=== PATIENT | male | born 1985 | race Caucasian/White ===

== ENCOUNTER 2017-03-03 16:52 | Emergency (ER) | payer MEDICAID ==
[~2017-03-03 16:52] MED LIST: ASPIR 8181 MG PO; ATIVAN0.5 M1; ATIVAN2 MG PO; BENAZEPRIL HYDR40 M1 PO; ERYOO OU; FOL1 PO; FOLIC ACID1 MG; HCTZ-METOPROLOL1 TA1; KEPPRA500 MG PO; LAC PO; LEXAPRO10 MG PO; PEPL PO; PROPRANOLOL HCL20 MG PO; THI100 PO; VITAMIN B COMPL; ZESTRIL5 MG
[2017-03-03 19:32] LABS: BASOPHIL % 0.4 % (0-2); PLATELET COUNT 194 x10^3mcL (130-400); RED CELL DISTRIBUTION WIDTH 13.8 % (11.5-14.5)
[2017-03-03 19:38] LABS: CALCIUM 8.5 mg/dL (8.5-10.1); CARBON DIOXIDE 31.8 mmol/L (21-32); CHLORIDE SERUM 98 mmol/L (98-107); CREATININE SERUM 0.9 mg/dL (0.7-1.3); GFR1 > 60 mL/min; GLUCOSE SERUM 105 mg/dL (74-106); POTASSIUM SERUM 3.5 mmol/L (3.5-5.1); SODIUM SERUM 141 mmol/L (136-145)
[2017-03-03 19:50] LABS: ALBUMIN 4.3 g/dL (3.4-5.0); ALKALINE PHOSPHATASE 96 U/L (46-116); ALT/SGPT 39 U/L (16-63); AST/SGOT 35 U/L (15-37); BILIRUBIN TOTAL 0.5 mg/dL (0.20-1.00); LIPASE 192 IU/L (73-393); MAGNESIUM 1.6 mg/dL (1.8-2.4)
[2017-03-03 22:07] LABS: AMPHETAMINE QUAL UR NONE DETECTED (NEG <=1000)
[2017-03-03 23:56] VITALS: BP 130/84
== END 2017-03-03 23:56 | disposition home or self-care (01) ==
LOC: ED 16:52
PROVIDERS: Emergency Medicine
DX: R00.2 Palpitations (principal); I97.89 Other postprocedural complications and disorders of the circulatory system, not elsewhere classified; I47.1 Supraventricular tachycardia; E83.42 Hypomagnesemia; F10.10 Alcohol abuse, uncomplicated
CPT/HCPCS: 80307; 83880; G0480; J2060; J2405; J3411; J3475; J3490; J7030

== ENCOUNTER 2017-06-05 17:01 | Emergency (ER) | payer MEDICAID ==
[~2017-06-05] VITALS: Ht 170.2 cm; Wt 87.2 kg
[2017-06-05 17:06] VITALS: BP 154/107
[2017-06-05 18:05] LABS: BASOPHIL % 1.5 % (0-2); PLATELET COUNT 262 x10^3mcL (130-400)
[2017-06-05 18:06] LABS: RED CELL DISTRIBUTION WIDTH 19.3 % (11.5-14.5)
[2017-06-05 18:16] LABS: CALCIUM 8.1 mg/dL (8.5-10.1); CARBON DIOXIDE 29.9 mmol/L (21-32); CHLORIDE SERUM 104 mmol/L (98-107); CREATININE SERUM 0.9 mg/dL (0.7-1.3); GFR1 > 60 mL/min; GLUCOSE SERUM 140 mg/dL (74-106); POTASSIUM SERUM 3.2 mmol/L (3.5-5.1); SODIUM SERUM 144 mmol/L (136-145)
[2017-06-05 18:21] LABS: ALBUMIN 3.8 g/dL (3.4-5.0); ALKALINE PHOSPHATASE 81 U/L (46-116); ALT/SGPT 32 U/L (16-63); AST/SGOT 35 U/L (15-37); BILIRUBIN TOTAL 0.2 mg/dL (0.20-1.00); CHOLESTEROL 192 mg/dL (<200); HDL CHOLESTEROL 113 mg/dL (40-60); PHOSPHOROUS 3.5 mg/dL (2.5-4.9); TOTAL PROTEIN, SERUM 7.7 g/dL (6.4-8.2); URIC ACID 5.3 mg/dL (3.5-7.2)
== END 2017-06-05 19:02 | disposition home or self-care (01) ==
LOC: ED 17:01
PROVIDERS: Emergency Medicine
DX: F10.229 Alcohol dependence with intoxication, unspecified (principal); E86.0 Dehydration
CPT/HCPCS: 83880; G0480; J1885; J2060; J7030; Q0092

== ENCOUNTER 2017-07-06 20:37 | Emergency (ER) | payer MEDICAID ==
[2017-07-06 21:32] VITALS: BP 132/110
== END 2017-07-06 22:10 | disposition left against medical advice (07) ==
LOC: ED 20:37
DX: Z53.21 Procedure and treatment not carried out due to patient leaving prior to being seen by health care provider (principal)

== ENCOUNTER 2017-07-24 13:10 | Emergency (ER) | payer MEDICAID ==
[2017-07-24 16:27] LABS: BASOPHIL % 0.8 % (0-2); PLATELET COUNT 290 x10^3mcL (130-400)
[2017-07-24 16:55] LABS: ALBUMIN 4.3 g/dL (3.4-5.0); ALKALINE PHOSPHATASE 71 U/L (46-116); ALT/SGPT 27 U/L (16-63); AMYLASE 81 U/L (25-115); AST/SGOT 34 U/L (15-37); BILIRUBIN TOTAL 0.49 mg/dL (0.20-1.00); CALCIUM 8.7 mg/dL (8.5-10.1); CARBON DIOXIDE 27.5 mmol/L (21-32); CHLORIDE SERUM 102 mmol/L (98-107); CREATININE SERUM 0.8 mg/dL (0.7-1.3); GFR1 > 60 mL/min; GLUCOSE SERUM 96 mg/dL (74-106); LIPASE 197 IU/L (73-393); MAGNESIUM 1.8 mg/dL (1.8-2.4); POTASSIUM SERUM 3.5 mmol/L (3.5-5.1); SODIUM SERUM 144 mmol/L (136-145)
[2017-07-24 17:01] LABS: CHOLESTEROL 213 mg/dL (<200); HDL CHOLESTEROL 100 mg/dL (40-60); TOTAL PROTEIN, SERUM 8.7 g/dL (6.4-8.2)
[2017-07-24 19:02] VITALS: BP 136/80
== END 2017-07-24 19:02 | disposition home or self-care (01) ==
LOC: ED 13:10
PROVIDERS: Emergency Medicine
DX: K29.20 Alcoholic gastritis without bleeding (principal); F10.229 Alcohol dependence with intoxication, unspecified; I10 Essential (primary) hypertension; F17.210 Nicotine dependence, cigarettes, uncomplicated; I45.6 Pre-excitation syndrome; Z71.6 Tobacco abuse counseling
CPT/HCPCS: 83880; 99406; G0480; J0500; J1885; J3411; J3475; J3490; J7030; Q0092

== ENCOUNTER 2017-08-05 18:58 | Emergency (ER) | payer MEDICAID ==
[2017-08-05 21:24] LABS: PLATELET COUNT 227 x10^3mcL (130-400)
[2017-08-05 21:29] LABS: BASOPHIL % 1.2 % (0-2)
[2017-08-05 21:32] LABS: RED CELL DISTRIBUTION WIDTH 18.6 % (11.5-14.5)
[2017-08-05 21:42] LABS: CHLORIDE SERUM 105 mmol/L (98-107); CREATININE SERUM 0.8 mg/dL (0.7-1.3); GFR1 > 60 mL/min; GLUCOSE SERUM 114 mg/dL (74-106); SODIUM SERUM 144 mmol/L (136-145)
[2017-08-05 21:46] LABS: ALBUMIN 3.8 g/dL (3.4-5.0); ALKALINE PHOSPHATASE 77 U/L (46-116); ALT/SGPT 43 U/L (16-63); AST/SGOT 53 U/L (15-37); BILIRUBIN TOTAL 0.13 mg/dL (0.20-1.00); LIPASE 416 IU/L (73-393)
[2017-08-05 21:49] LABS: AMYLASE 161 U/L (25-115)
[2017-08-05 23:55] VITALS: BP 140/100
== END 2017-08-05 23:00 | disposition home or self-care (01) ==
LOC: ED 18:58
PROVIDERS: Emergency Medicine
DX: S30.1XXA Contusion of abdominal wall, initial encounter (principal); S20.211A Contusion of right front wall of thorax, initial encounter; I10 Essential (primary) hypertension; F41.9 Anxiety disorder, unspecified; F32.9 Major depressive disorder, single episode, unspecified; I45.6 Pre-excitation syndrome; W18.30XA Fall on same level, unspecified, initial encounter; Y93.89 Activity, other specified; Y92.89 Other specified places as the place of occurrence of the external cause; Y99.8 Other external cause status
CPT/HCPCS: 36415; G0480; J7030; Q0092; Q9967

== ENCOUNTER 2017-08-08 06:22 | Emergency (ER) | payer MEDICAID ==
[2017-08-08 07:28] LABS: CARBON DIOXIDE 32.4 mmol/L (21-32); CHLORIDE SERUM 102 mmol/L (98-107); CREATININE SERUM 0.9 mg/dL (0.7-1.3); GFR1 > 60 mL/min; GLUCOSE SERUM 127 mg/dL (74-106); SODIUM SERUM 145 mmol/L (136-145)
[2017-08-08 07:30] LABS: PLATELET COUNT 214 x10^3mcL (130-400)
[2017-08-08 07:33] LABS: ALBUMIN 3.9 g/dL (3.4-5.0); ALKALINE PHOSPHATASE 74 U/L (46-116); ALT/SGPT 42 U/L (16-63); AST/SGOT 49 U/L (15-37); BILIRUBIN TOTAL 0.2 mg/dL (0.20-1.00); TOTAL PROTEIN, SERUM 8.1 g/dL (6.4-8.2)
[2017-08-08 07:36] LABS: BASOPHIL % 1.2 % (0-2)
[2017-08-08 11:04] VITALS: BP 163/97
== END 2017-08-08 11:56 | disposition home or self-care (01) ==
LOC: ED 06:22
PROVIDERS: Emergency Medicine
DX: S39.91XA Unspecified injury of abdomen, initial encounter (principal); I10 Essential (primary) hypertension; F32.9 Major depressive disorder, single episode, unspecified; F41.9 Anxiety disorder, unspecified; I45.6 Pre-excitation syndrome; W01.0XXA Fall on same level from slipping, tripping and stumbling without subsequent striking against object, initial encounter; Y93.89 Activity, other specified; Y92.89 Other specified places as the place of occurrence of the external cause; Y99.8 Other external cause status
CPT/HCPCS: J2060; J7030; Q0162

== ENCOUNTER 2017-09-01 16:08 | Emergency (ER) | payer MEDICAID ==
[2017-09-01 17:23] LABS: BASOPHIL % 0.4 % (0-2); PLATELET COUNT 200 x10^3mcL (130-400)
[2017-09-01 17:24] LABS: RED CELL DISTRIBUTION WIDTH 20.9 % (11.5-14.5)
[2017-09-01 17:28] LABS: rbc morphology (normal/abnorm) ABNORMAL (NORMAL)
[2017-09-01 17:36] LABS: CALCIUM 8.4 mg/dL (8.5-10.1); CARBON DIOXIDE 29.6 mmol/L (21-32); CHLORIDE SERUM 102 mmol/L (98-107); CREATININE SERUM 0.9 mg/dL (0.7-1.3); GFR1 > 60 mL/min; GLUCOSE SERUM 100 mg/dL (74-106); POTASSIUM SERUM 3.7 mmol/L (3.5-5.1); SODIUM SERUM 145 mmol/L (136-145)
[2017-09-01 17:41] LABS: ALBUMIN 4.2 g/dL (3.4-5.0); ALKALINE PHOSPHATASE 77 U/L (46-116); ALT/SGPT 34 U/L (16-63); AST/SGOT 41 U/L (15-37); BILIRUBIN TOTAL 0.43 mg/dL (0.20-1.00); LIPASE 208 IU/L (73-393); MAGNESIUM 1.7 mg/dL (1.8-2.4)
[2017-09-01 17:50] LABS: TOTAL PROTEIN, SERUM 8.6 g/dL (6.4-8.2)
[2017-09-01 19:35] VITALS: BP 150/104
== END 2017-09-01 19:35 | disposition home or self-care (01) ==
LOC: ED 16:08
PROVIDERS: Emergency Medicine
DX: F10.10 Alcohol abuse, uncomplicated (principal); F11.10 Opioid abuse, uncomplicated; K92.0 Hematemesis; R56.9 Unspecified convulsions; I45.6 Pre-excitation syndrome; I10 Essential (primary) hypertension; Z87.19 Personal history of other diseases of the digestive system
CPT/HCPCS: G0480; J2060; J3411; J3475; J3490

== ENCOUNTER 2017-10-24 20:04 | Inpatient (IN) | payer MEDICAID ==
[~2017-10-24] VITALS: Ht 180.3 cm; Wt 88.5 kg
[2017-10-24 21:44] LABS: PLATELET COUNT 335 x10^3mcL (130-400)
[2017-10-24 21:57] LABS: ALBUMIN 3.9 g/dL (3.4-5.0); ALKALINE PHOSPHATASE 71 U/L (46-116); ALT/SGPT 57 U/L (16-63); AST/SGOT 47 U/L (15-37); BILIRUBIN TOTAL 0.42 mg/dL (0.20-1.00); CALCIUM 8.1 mg/dL (8.5-10.1); CARBON DIOXIDE 31.8 mmol/L (21-32); CHLORIDE SERUM 105 mmol/L (98-107); CREATININE SERUM 0.8 mg/dL (0.7-1.3); GFR1 > 60 mL/min; GLUCOSE SERUM 98 mg/dL (74-106); SODIUM SERUM 147 mmol/L (136-145)
[2017-10-24 21:58] LABS: LIPASE 1847 IU/L (73-393)
[2017-10-24 22:02] LABS: RED CELL DISTRIBUTION WIDTH 21.2 % (11.5-14.5)
[2017-10-25] VITALS (8 sets, daily range): BP systolic 107–155; BP diastolic 67–111; Ht 180.3 cm; Wt 88.5 kg
[2017-10-25] MEDS ORDERED: BENAZEPRIL HYDR20 M1
[2017-10-25] MEDS ORDERED: ATIVAN1 MG
[2017-10-25] MEDS ORDERED: PHARMASSURE FO0.4 MG
[2017-10-25] MEDS ORDERED: THIAMINE HCL
[2017-10-25 00:36] LABS: MAGNESIUM 1.9 mg/dL (1.8-2.4); PHOSPHOROUS 2.6 mg/dL (2.5-4.9)
[2017-10-25 00:44] LABS: FREE T4 0.74 ng/dL (0.76-1.46); FREE THYROXINE INDEX 2.2 ug/dL (1.4-4.5); T4(THYROXINE) 6.4 ug/dL (4.7-13.3)
[2017-10-25 01:00] LABS: T3 TOTAL 0.66 ng/mL
[2017-10-25 01:16] LABS: microscopic required? NO
[2017-10-25 01:30] LABS: UA SPECIFIC GRAVITY <=1.005 (1.005-1.035); urine erythrocyte NEGATIVE (NEGATIVE)
[2017-10-25 01:40] LABS: AMPHETAMINE QUAL UR NONE DETECTED (NEG <=1000)
[2017-10-25 06:46] LABS: CALCIUM 7.5 mg/dL (8.5-10.1); CARBON DIOXIDE 31.3 mmol/L (21-32); CHLORIDE SERUM 107 mmol/L (98-107); CREATININE SERUM 0.8 mg/dL (0.7-1.3); GFR1 > 60 mL/min; GLUCOSE SERUM 97 mg/dL (74-106); POTASSIUM SERUM 3.4 mmol/L (3.5-5.1); SODIUM SERUM 145 mmol/L (136-145)
[2017-10-25 07:56] LABS: PLATELET COUNT 266 x10^3mcL (130-400); RED CELL DISTRIBUTION WIDTH 20.8 % (11.5-14.5)
[2017-10-25 07:57] LABS: BASOPHIL % 0.2 % (0-2)
[2017-10-26] VITALS (7 sets, daily range): BP systolic 118–143; BP diastolic 94–105
[2017-10-26 06:59] LABS: BASOPHIL % 0.6 % (0-2)
[2017-10-26 07:34] LABS: CALCIUM 8.6 mg/dL (8.5-10.1); CARBON DIOXIDE 29.2 mmol/L (21-32); CHLORIDE SERUM 102 mmol/L (98-107); CREATININE SERUM 0.7 mg/dL (0.7-1.3); GFR1 > 60 mL/min; GLUCOSE SERUM 85 mg/dL (74-106); MAGNESIUM 1.4 mg/dL (1.8-2.4); POTASSIUM SERUM 3.7 mmol/L (3.5-5.1); SODIUM SERUM 140 mmol/L (136-145)
[2017-10-26 11:19] LABS: RED CELL DISTRIBUTION WIDTH 20.2 % (11.5-14.5)
[2017-10-26 11:20] LABS: PLATELET COUNT 216 x10^3mcL (130-400)
[2017-10-26] MEDS ORDERED: CLONIDINE HCL0.2 MG PO (17:42)
[2017-10-26] MEDS ORDERED: OSCD PO (17:44)
[2017-10-26] MEDS ORDERED: COL100 PO (17:46)
[2017-10-26] MEDS ORDERED: NORCO1 TA2 PO (17:47)
[2017-10-26] MEDS ORDERED: BENAZEPRIL HYDR20 M1 PO (17:49)
[2017-10-26] MEDS ORDERED: ATIVAN2 MG PO (18:01)
== END 2017-10-26 20:00 | disposition home or self-care (01) | DRG 282 ==
LOC: ED 20:04 → DU 23:14
PROVIDERS: Emergency Medicine; ADMIT Family Medicine
DX: K85.20 Alcohol induced acute pancreatitis without necrosis or infection (principal); N17.0 Acute kidney failure with tubular necrosis; I16.0 Hypertensive urgency; I10 Essential (primary) hypertension; F10.239 Alcohol dependence with withdrawal, unspecified; G40.909 Epilepsy, unspecified, not intractable, without status epilepticus; E87.0 Hyperosmolality and hypernatremia; E87.6 Hypokalemia; D64.9 Anemia, unspecified; F41.8 Other specified anxiety disorders; F17.210 Nicotine dependence, cigarettes, uncomplicated; F12.10 Cannabis abuse, uncomplicated; Z68.25 Body mass index [BMI] 25.0-25.9, adult; Y90.8 Blood alcohol level of 240 mg/100 ml or more
CPT/HCPCS: 83880; 84439; C9113; G0480; J1885; J2270; J2405; J3420; J3475; J3480; J3490; J7030; Q0092

== ENCOUNTER 2018-01-23 20:11 | Inpatient (IN) | payer MEDICAID ==
[~2018-01-23] VITALS: Ht 180.3 cm; Wt 80.9 kg
[~2018-01-23 20:11] MED LIST changes: +ATIVAN1 MG; +BENAZEPRIL HYDR20 M1; +BENAZEPRIL HYDR20 M1 PO; +CLONIDINE HCL0.2 MG PO; +COL100 PO; +NORCO1 TA2 PO; +OSCD PO; +PHARMASSURE FO0.4 MG; +THIAMINE HCL
[2018-01-23 21:37] LABS: CALCIUM 8.3 mg/dL (8.5-10.1); CARBON DIOXIDE 31.9 mmol/L (21-32); CHLORIDE SERUM 110 mmol/L (98-107); CREATININE SERUM 0.8 mg/dL (0.7-1.3); GFR1 > 60 mL/min; GLUCOSE SERUM 115 mg/dL (74-106); POTASSIUM SERUM 3.2 mmol/L (3.5-5.1); SODIUM SERUM 155 mmol/L (136-145)
[2018-01-23 21:41] LABS: ALBUMIN 3.7 g/dL (3.4-5.0); ALKALINE PHOSPHATASE 77 U/L (46-116); ALT/SGPT 57 U/L (16-63); AST/SGOT 77 U/L (15-37); BILIRUBIN TOTAL 0.54 mg/dL (0.20-1.00); LIPASE 718 IU/L (73-393); TOTAL PROTEIN, SERUM 7.5 g/dL (6.4-8.2)
[2018-01-23] MEDS ORDERED: ZOF4 PO (22:18)
[2018-01-23] MEDS ORDERED: TOPROL XL25 MG PO (22:18)
[2018-01-24] VITALS (8 sets, daily range): BP systolic 104–143; BP diastolic 75–110
[2018-01-24] LABS: CHOLESTEROL/HDL RATIO 1.8; MAGNESIUM 1.5 mg/dL (1.8-2.4); PHOSPHOROUS 3.6 mg/dL (2.5-4.9)
[2018-01-24 00:04] LABS: FREE T4 0.72 ng/dL (0.76-1.46); FREE THYROXINE INDEX 1.8 ug/dL (1.4-4.5); T4(THYROXINE) 5.6 ug/dL (4.7-13.3)
[2018-01-24 00:58] LABS: T3 TOTAL 0.83 ng/mL
[2018-01-24 04:19] LABS: microscopic required? NO
[2018-01-24 04:30] LABS: UA SPECIFIC GRAVITY 1.015 (1.005-1.035); urine erythrocyte NEGATIVE (NEGATIVE)
[2018-01-24 04:38] LABS: AMPHETAMINE QUAL UR NONE DETECTED (NEG <=1000)
[2018-01-24 06:43] LABS: BASOPHIL % 0.7 % (0-2); PLATELET COUNT 139 x10^3mcL (130-400)
[2018-01-24 06:44] LABS: RED CELL DISTRIBUTION WIDTH 15.9 % (11.5-14.5)
[2018-01-24 07:31] LABS: CALCIUM 7.6 mg/dL (8.5-10.1); CHLORIDE SERUM 105 mmol/L (98-107); CREATININE SERUM 0.7 mg/dL (0.7-1.3); GFR1 > 60 mL/min; GLUCOSE SERUM 76 mg/dL (74-106); MAGNESIUM 2.7 mg/dL (1.8-2.4); PHOSPHOROUS 3.4 mg/dL (2.5-4.9); POTASSIUM SERUM 3.5 mmol/L (3.5-5.1); SODIUM SERUM 141 mmol/L (136-145)
[2018-01-24 10:57] LABS: AMYLASE 112 U/L (25-115); LIPASE 547 IU/L (73-393)
[2018-01-25 00:07] LABS: BASOPHIL % 0.9 % (0-2); PLATELET COUNT 131 x10^3mcL (130-400)
[2018-01-25 00:22] LABS: RED CELL DISTRIBUTION WIDTH 15.4 % (11.5-14.5)
[2018-01-25 05:56] VITALS: BP 138/90
[2018-01-25 06:17] LABS: CALCIUM 8.6 mg/dL (8.5-10.1); CARBON DIOXIDE 26.4 mmol/L (21-32); CHLORIDE SERUM 106 mmol/L (98-107); CREATININE SERUM 0.7 mg/dL (0.7-1.3); GFR1 > 60 mL/min; GLUCOSE SERUM 94 mg/dL (74-106); MAGNESIUM 1.8 mg/dL (1.8-2.4); PHOSPHOROUS 3.8 mg/dL (2.5-4.9); POTASSIUM SERUM 4.3 mmol/L (3.5-5.1); SODIUM SERUM 142 mmol/L (136-145)
[2018-01-25 08:09] VITALS: BP 138/90
[2018-01-25 10:14] VITALS: Ht 180.3 cm; Wt 80.9 kg
[2018-01-25 16:40] VITALS: BP 146/101
[2018-01-25 21:37] VITALS: BP 120/89
== END 2018-01-25 22:30 | disposition left against medical advice (07) | DRG 282 ==
LOC: ED 20:11 → DU 22:43
PROVIDERS: Emergency Medicine; Family Medicine Sports Medicine
DX: K85.90 Acute pancreatitis without necrosis or infection, unspecified (principal); G92 Toxic encephalopathy; G20 Parkinson's disease; E87.0 Hyperosmolality and hypernatremia; G40.409 Other generalized epilepsy and epileptic syndromes, not intractable, without status epilepticus; F10.239 Alcohol dependence with withdrawal, unspecified; I10 Essential (primary) hypertension; E86.0 Dehydration; F41.9 Anxiety disorder, unspecified; F32.9 Major depressive disorder, single episode, unspecified; F17.210 Nicotine dependence, cigarettes, uncomplicated; E87.6 Hypokalemia; Y90.9 Presence of alcohol in blood, level not specified; F10.229 Alcohol dependence with intoxication, unspecified; E83.42 Hypomagnesemia; I45.6 Pre-excitation syndrome; Z53.21 Procedure and treatment not carried out due to patient leaving prior to being seen by health care provider; Z91.19 Patient's noncompliance with other medical treatment and regimen; Z72.89 Other problems related to lifestyle; Z90.49 Acquired absence of other specified parts of digestive tract; Z79.899 Other long term (current) drug therapy; Z82.49 Family history of ischemic heart disease and other diseases of the circulatory system
CPT/HCPCS: 83880; 84439; G0480; J1885; J2060; J2405; J3475; J3480; J7030; Q0092; Q0162

== ENCOUNTER 2018-02-19 13:18 | Inpatient (IN) | payer MEDICAID ==
[~2018-02-19] VITALS: Ht 177.8 cm; Wt 76.8 kg
[~2018-02-19 13:18] MED LIST changes: +TOPROL XL25 MG PO; +ZOF4 PO
[2018-02-19 13:25] VITALS: Ht 177.8 cm; Wt 76.8 kg
[2018-02-19 14:12] LABS: BASOPHIL % 0.1 % (0-2)
[2018-02-19 14:16] LABS: PLATELET COUNT 92 x10^3mcL (130-400); RED CELL DISTRIBUTION WIDTH 15.4 % (11.5-14.5)
[2018-02-19 14:31] LABS: ALBUMIN 4.3 g/dL (3.4-5.0); ALKALINE PHOSPHATASE 97 U/L (46-116); ALT/SGPT 43 U/L (16-63); AST/SGOT 64 U/L (15-37); BILIRUBIN TOTAL 0.8 mg/dL (0.20-1.00); CALCIUM 8.4 mg/dL (8.5-10.1); CARBON DIOXIDE 30.4 mmol/L (21-32); CHLORIDE SERUM 97 mmol/L (98-107); CREATININE SERUM 0.8 mg/dL (0.7-1.3); GFR1 > 60 mL/min; GLUCOSE SERUM 96 mg/dL (74-106); LIPASE 586 IU/L (73-393); MAGNESIUM 1.6 mg/dL (1.8-2.4); SODIUM SERUM 140 mmol/L (136-145); T4(THYROXINE) 6.5 ug/dL (4.7-13.3)
[2018-02-19 14:32] LABS: AMYLASE 118 U/L (25-115); CHOLESTEROL 243 mg/dL (<200); HDL CHOLESTEROL 127 mg/dL (40-60); TOTAL PROTEIN, SERUM 8.3 g/dL (6.4-8.2)
[2018-02-19 14:34] LABS: POTASSIUM SERUM 2.9 mmol/L (3.5-5.1)
[2018-02-19] MEDS ORDERED: PROPRANOLOL HCL20 MG PO (15:21)
[2018-02-19 15:52] LABS: UA SPECIFIC GRAVITY <=1.005 (1.005-1.035); microscopic required? YES; urine erythrocyte NEGATIVE (NEGATIVE)
[2018-02-19 16:01] LABS: AMPHETAMINE QUAL UR NONE DETECTED (NEG <=1000)
[2018-02-19 16:36] LABS: PHOSPHOROUS 3.4 mg/dL (2.5-4.9)
[2018-02-19 16:51] VITALS: BP 141/100
[2018-02-19 17:52] LABS: CARBON DIOXIDE 32.3 mmol/L (21-32); CHLORIDE SERUM 100 mmol/L (98-107); CREATININE SERUM 0.7 mg/dL (0.7-1.3); GFR1 > 60 mL/min; GLUCOSE SERUM 86 mg/dL (74-106); POTASSIUM SERUM 3.4 mmol/L (3.5-5.1); SODIUM SERUM 140 mmol/L (136-145)
[2018-02-19 20:05] VITALS: BP 138/102
[2018-02-19 21:19] VITALS: BP 126/79
[2018-02-20 06:05] VITALS: BP 141/85
[2018-02-20 06:53] LABS: CALCIUM 8.5 mg/dL (8.5-10.1); CARBON DIOXIDE 27.3 mmol/L (21-32); CHLORIDE SERUM 99 mmol/L (98-107); GFR1 > 60 mL/min; GLUCOSE SERUM 66 mg/dL (74-106); MAGNESIUM 2.2 mg/dL (1.8-2.4); PHOSPHOROUS 3.6 mg/dL (2.5-4.9); POTASSIUM SERUM 3.5 mmol/L (3.5-5.1); SODIUM SERUM 137 mmol/L (136-145)
[2018-02-20 07:08] LABS: BASOPHIL % 0 % (0-2); PLATELET COUNT 52 x10^3mcL (130-400); RED CELL DISTRIBUTION WIDTH 15.3 % (11.5-14.5)
[2018-02-20 09:00] VITALS: BP 130/89
[2018-02-20 14:21] VITALS: BP 150/111
== END 2018-02-20 16:27 | disposition left against medical advice (07) | DRG 282 ==
LOC: ED 13:18 → DU 14:58
PROVIDERS: Emergency Medicine; Family Medicine Sports Medicine
DX: K85.90 Acute pancreatitis without necrosis or infection, unspecified (principal); N17.0 Acute kidney failure with tubular necrosis; F10.229 Alcohol dependence with intoxication, unspecified; E83.42 Hypomagnesemia; E87.8 Other disorders of electrolyte and fluid balance, not elsewhere classified; E83.51 Hypocalcemia; K86.1 Other chronic pancreatitis; I10 Essential (primary) hypertension; F32.9 Major depressive disorder, single episode, unspecified; F17.210 Nicotine dependence, cigarettes, uncomplicated; E87.6 Hypokalemia; Y90.9 Presence of alcohol in blood, level not specified; E78.5 Hyperlipidemia, unspecified; E16.2 Hypoglycemia, unspecified; I34.0 Nonrheumatic mitral (valve) insufficiency; D64.9 Anemia, unspecified
CPT/HCPCS: 83880; 99406; G0480; J1885; J2060; J2405; J3475; J3480; J3490; J7030; Q0092

== ENCOUNTER 2018-03-15 19:20 | Emergency (ER) | payer SELFPAY ==
[~2018-03-15] VITALS: Ht 180.3 cm; Wt 79.4 kg
[2018-03-15 19:37] VITALS: Ht 180.3 cm; Wt 79.4 kg
[2018-03-15 21:06] LABS: PLATELET COUNT 227 x10^3mcL (130-400)
[2018-03-15 21:08] LABS: RED CELL DISTRIBUTION WIDTH 16.5 % (11.5-14.5)
[2018-03-15 21:15] LABS: CALCIUM 8.3 mg/dL (8.5-10.1); CARBON DIOXIDE 27.1 mmol/L (21-32); CHLORIDE SERUM 103 mmol/L (98-107); CREATININE SERUM 0.6 mg/dL (0.7-1.3); GFR1 > 60 mL/min; GLUCOSE SERUM 94 mg/dL (74-106); POTASSIUM SERUM 4.3 mmol/L (3.5-5.1); SODIUM SERUM 136 mmol/L (136-145)
[2018-03-15 21:20] LABS: ALBUMIN 3.9 g/dL (3.4-5.0); ALKALINE PHOSPHATASE 77 U/L (46-116); ALT/SGPT 30 U/L (16-63); AST/SGOT 48 U/L (15-37); LIPASE 325 IU/L (73-393); TOTAL PROTEIN, SERUM 7.9 g/dL (6.4-8.2)
[2018-03-15 22:04] VITALS: BP 129/82
== END 2018-03-15 22:04 | disposition home or self-care (01) ==
LOC: ED 19:20
PROVIDERS: Emergency Medicine
DX: F10.10 Alcohol abuse, uncomplicated (principal); I10 Essential (primary) hypertension; I45.6 Pre-excitation syndrome
CPT/HCPCS: 36415; G0480; J0500; J3490; J7030

== ENCOUNTER 2018-03-15 22:15 | Emergency (ER) | payer SELFPAY | END 2018-03-15 23:01 | disposition left against medical advice (07) | LOC: ED 22:15 | DX: Z53.21 Procedure and treatment not carried out due to patient leaving prior to being seen by health care provider (principal) ==

== ENCOUNTER 2018-07-07 02:19 | Emergency (ER) | payer MEDICAID ==
[~2018-07-07] VITALS: Ht 180.3 cm; Wt 86.6 kg
[2018-07-07 02:31] VITALS: Ht 180.3 cm; Wt 86.6 kg
[2018-07-07 06:15] VITALS: BP 135/88
== END 2018-07-07 06:09 | disposition home or self-care (01) ==
LOC: ED 02:19
DX: F10.10 Alcohol abuse, uncomplicated (principal); I10 Essential (primary) hypertension; F41.9 Anxiety disorder, unspecified; F32.9 Major depressive disorder, single episode, unspecified
CPT/HCPCS: J1885; J2060; J7030

== ENCOUNTER 2018-08-04 14:55 | Inpatient (IN) | payer MEDICAID ==
[~2018-08-04] VITALS: Ht 177.8 cm; Wt 90.7 kg
[2018-08-04 15:08] VITALS: Ht 177.8 cm; Wt 90.7 kg
[2018-08-04 21:09] LABS: CARBON DIOXIDE 28.4 mmol/L (21-32); CHLORIDE SERUM 105 mmol/L (98-107); GFR1 > 60 mL/min; GLUCOSE SERUM 105 mg/dL (74-106); POTASSIUM SERUM 3.7 mmol/L (3.5-5.1); SODIUM SERUM 148 mmol/L (136-145)
[2018-08-04 21:15] LABS: ALKALINE PHOSPHATASE 67 U/L (46-116); ALT/SGPT 26 U/L (16-63); AST/SGOT 28 U/L (15-37); BILIRUBIN TOTAL 0.22 mg/dL (0.20-1.00)
[2018-08-04 21:21] LABS: TOTAL PROTEIN, SERUM 8.6 g/dL (6.4-8.2)
[2018-08-05 00:25] VITALS: BP 137/85
[2018-08-05 00:37] LABS: T3 TOTAL 0.61 ng/mL
[2018-08-05 00:39] LABS: MAGNESIUM 2.1 mg/dL (1.8-2.4); PHOSPHOROUS 4.6 mg/dL (2.5-4.9)
[2018-08-05 00:40] LABS: CHOLESTEROL/HDL RATIO 2.6
[2018-08-05 01:25] LABS: FREE T4 0.59 ng/dL (0.76-1.46); FREE THYROXINE INDEX 1.4 ug/dL (1.4-4.5); T4(THYROXINE) 4.4 ug/dL (4.7-13.3)
[2018-08-05 05:02] VITALS: BP 121/77
[2018-08-05 05:36] LABS: microscopic required? NO
[2018-08-05 07:16] LABS: urine erythrocyte NEGATIVE (NEGATIVE)
[2018-08-05 07:25] LABS: AMPHETAMINE QUAL UR NONE DETECTED (See below)
[2018-08-05 08:42] VITALS: BP 143/91
[2018-08-05 12:06] VITALS: BP 109/70
[2018-08-05 16:43] VITALS: BP 133/90
[2018-08-05 21:16] VITALS: BP 139/96
[2018-08-06 05:38] VITALS: BP 146/88
[2018-08-06 07:09] LABS: CALCIUM 8.8 mg/dL (8.5-10.1); CHLORIDE SERUM 108 mmol/L (98-107); CREATININE SERUM 0.8 mg/dL (0.7-1.3); GFR1 > 60 mL/min; GLUCOSE SERUM 84 mg/dL (74-106); MAGNESIUM 1.9 mg/dL (1.8-2.4); PHOSPHOROUS 3.5 mg/dL (2.5-4.9); SODIUM SERUM 145 mmol/L (136-145)
[2018-08-06 08:18] LABS: BASOPHIL % 0.7 % (0-2); PLATELET COUNT 193 x10^3mcL (130-400)
[2018-08-06 09:36] VITALS: BP 126/95
[2018-08-06 12:51] VITALS: BP 131/83
[2018-08-06 17:21] VITALS: BP 142/91
[2018-08-06 20:17] VITALS: BP 112/78
[2018-08-07 05:28] VITALS: BP 108/80
[2018-08-07 06:31] LABS: BASOPHIL % 0.3 % (0-2); PLATELET COUNT 173 x10^3mcL (130-400)
[2018-08-07 06:32] LABS: RED CELL DISTRIBUTION WIDTH 20.5 % (11.5-14.5)
[2018-08-07 06:42] LABS: CALCIUM 8.7 mg/dL (8.5-10.1); CARBON DIOXIDE 24.7 mmol/L (21-32); CHLORIDE SERUM 104 mmol/L (98-107); CREATININE SERUM 0.8 mg/dL (0.7-1.3); GFR1 > 60 mL/min; GLUCOSE SERUM 105 mg/dL (74-106); MAGNESIUM 1.8 mg/dL (1.8-2.4); PHOSPHOROUS 3.9 mg/dL (2.5-4.9); POTASSIUM SERUM 3.6 mmol/L (3.5-5.1); SODIUM SERUM 139 mmol/L (136-145)
[2018-08-07 08:30] VITALS: BP 130/85
[2018-08-07 12:37] VITALS: BP 136/93
[2018-08-07] MEDS ORDERED: ATIVAN0.5 M1 PO (14:27)
[2018-08-07 14:37] VITALS: BP 136/93
== END 2018-08-07 15:23 | disposition home or self-care (01) | DRG 816 ==
LOC: ED 14:55 → DU 22:16 → MU 22:16 → DU 08-05 00:11
PROVIDERS: Emergency Medicine; Internal Medicine
DX: T51.0X1A Toxic effect of ethanol, accidental (unintentional), initial encounter (principal); G92 Toxic encephalopathy; F10.221 Alcohol dependence with intoxication delirium; E83.51 Hypocalcemia; I10 Essential (primary) hypertension; I45.6 Pre-excitation syndrome; F41.8 Other specified anxiety disorders; F10.239 Alcohol dependence with withdrawal, unspecified; F32.9 Major depressive disorder, single episode, unspecified; F17.210 Nicotine dependence, cigarettes, uncomplicated; Z68.28 Body mass index [BMI] 28.0-28.9, adult; Y90.8 Blood alcohol level of 240 mg/100 ml or more; Y92.009 Unspecified place in unspecified non-institutional (private) residence as the place of occurrence of the external cause
CPT/HCPCS: 83880; 84439; C9113; G0480; J2060; J2405; J3411; J3475; J3490; J7030; J7042; Q0092

== ENCOUNTER 2018-08-14 18:06 | Emergency (ER) | payer MEDICAID ==
[~2018-08-14] VITALS: Ht 177.8 cm; Wt 87.5 kg
[~2018-08-14 18:06] MED LIST changes: +ATIVAN0.5 M1 PO
[2018-08-14 18:22] VITALS: Ht 177.8 cm; Wt 87.5 kg
[2018-08-14 19:11] LABS: CALCIUM 8.1 mg/dL (8.5-10.1); CHLORIDE SERUM 107 mmol/L (98-107); CREATININE SERUM 0.8 mg/dL (0.7-1.3); GFR1 > 60 mL/min; GLUCOSE SERUM 103 mg/dL (74-106); POTASSIUM SERUM 3.6 mmol/L (3.5-5.1); SODIUM SERUM 148 mmol/L (136-145)
[2018-08-14 19:18] LABS: ALKALINE PHOSPHATASE 79 U/L (46-116); ALT/SGPT 22 U/L (16-63); AST/SGOT 25 U/L (15-37); BILIRUBIN TOTAL 0.31 mg/dL (0.20-1.00); LIPASE 293 IU/L (73-393); TOTAL PROTEIN, SERUM 8.1 g/dL (6.4-8.2)
[2018-08-14 19:36] LABS: PLATELET COUNT 122 x10^3mcL (130-400); RED CELL DISTRIBUTION WIDTH 20.1 % (11.5-14.5)
[2018-08-14 19:54] LABS: BAND NEUTROPHIL 0 % (0-10); BASOPHIL 0 % (0-2); MONOCYTE 8 % (0-7); SEGMENTED NEUTROPHILS 30 % (37-75); rbc morphology (normal/abnorm) ABNORMAL (NORMAL)
[2018-08-14 19:56] LABS: PLATELET MORPHOLOGY PLATELETS DECREASED; target cell (codocyte) 1+
[2018-08-14 20:10] VITALS: BP 140/89
== END 2018-08-14 20:08 | disposition home or self-care (01) ==
LOC: ED 18:06
PROVIDERS: Emergency Medicine
DX: F10.129 Alcohol abuse with intoxication, unspecified (principal); K29.00 Acute gastritis without bleeding; I10 Essential (primary) hypertension; F41.9 Anxiety disorder, unspecified; F32.9 Major depressive disorder, single episode, unspecified; I45.6 Pre-excitation syndrome
CPT/HCPCS: G0480; J2405; J3411; J3490

== ENCOUNTER 2018-08-29 12:18 | Inpatient (IN) | payer MEDICAID ==
[~2018-08-29] VITALS: Ht 180.3 cm; Wt 86.7 kg
[2018-08-29 12:25] VITALS: Ht 180.3 cm; Wt 86.7 kg
[2018-08-29 14:17] LABS: CALCIUM 8.8 mg/dL (8.5-10.1); CARBON DIOXIDE 28.3 mmol/L (21-32); CHLORIDE SERUM 95 mmol/L (98-107); CREATININE SERUM 0.8 mg/dL (0.7-1.3); GFR1 > 60 mL/min; GLUCOSE SERUM 129 mg/dL (74-106); POTASSIUM SERUM 3.9 mmol/L (3.5-5.1); SODIUM SERUM 136 mmol/L (136-145)
[2018-08-29 14:29] LABS: ALBUMIN 4.3 g/dL (3.4-5.0); ALKALINE PHOSPHATASE 78 U/L (46-116); ALT/SGPT 39 U/L (16-63); AST/SGOT 72 U/L (15-37); BILIRUBIN TOTAL 0.5 mg/dL (0.20-1.00); LIPASE 521 IU/L (73-393); MAGNESIUM 1.9 mg/dL (1.8-2.4); T4(THYROXINE) 6.9 ug/dL (4.7-13.3)
[2018-08-29 14:31] LABS: AMYLASE 119 U/L (25-115); CHOLESTEROL 257 mg/dL (<200); HDL CHOLESTEROL 120 mg/dL (40-60); TOTAL PROTEIN, SERUM 8.9 g/dL (6.4-8.2)
[2018-08-29 14:32] LABS: PLATELET COUNT 74 x10^3mcL (130-400); RED CELL DISTRIBUTION WIDTH 24.1 % (11.5-14.5)
[2018-08-29 14:49] LABS: BAND NEUTROPHIL 0 % (0-10); BASOPHIL 0 % (0-2); MONOCYTE 5 % (0-7); SEGMENTED NEUTROPHILS 65 % (37-75)
[2018-08-29 14:50] LABS: rbc morphology (normal/abnorm) ABNORMAL (NORMAL)
[2018-08-29 15:16] LABS: microscopic required? YES; urine erythrocyte TRACE (NEGATIVE)
[2018-08-29 15:25] LABS: AMPHETAMINE QUAL UR NONE DETECTED (See below)
[2018-08-29 16:20] VITALS: BP 153/96
[2018-08-29] MEDS ORDERED: METOPROLOL TART25 M1 PO (17:14)
[2018-08-29 20:42] VITALS: BP 137/92
[2018-08-30 05:41] VITALS: BP 138/97
[2018-08-30 06:10] LABS: CALCIUM 7.6 mg/dL (8.5-10.1); CARBON DIOXIDE 22.5 mmol/L (21-32); CHLORIDE SERUM 99 mmol/L (98-107); CREATININE SERUM 0.5 mg/dL (0.7-1.3); GFR1 > 60 mL/min; GLUCOSE SERUM 71 mg/dL (74-106); LIPASE 396 IU/L (73-393); POTASSIUM SERUM 3.3 mmol/L (3.5-5.1); SODIUM SERUM 136 mmol/L (136-145)
[2018-08-30 07:20] LABS: PLATELET COUNT 59 x10^3mcL (130-400); RED CELL DISTRIBUTION WIDTH 24.1 % (11.5-14.5)
[2018-08-30 09:15] VITALS: BP 149/103
[2018-08-30 10:23] LABS: ATYPICAL LYMPH 1 %; BAND NEUTROPHIL 2 % (0-10); BASOPHIL 0 % (0-2); MONOCYTE 12 % (0-7); SEGMENTED NEUTROPHILS 71 % (37-75)
[2018-08-30 10:25] LABS: PLATELET MORPHOLOGY PLATELETS DECREASED; rbc morphology (normal/abnorm) ABNORMAL (NORMAL)
[2018-08-30 17:51] VITALS: BP 155/108
[2018-08-30 20:49] VITALS: BP 155/10
[2018-08-31 02:15] VITALS: BP 141/109
[2018-08-31 05:51] VITALS: BP 148/99
[2018-08-31 07:06] LABS: CALCIUM 8.8 mg/dL (8.5-10.1); CARBON DIOXIDE 19.3 mmol/L (21-32); CHLORIDE SERUM 94 mmol/L (98-107); CREATININE SERUM 0.6 mg/dL (0.7-1.3); GFR1 > 60 mL/min; GLUCOSE SERUM 86 mg/dL (74-106); POTASSIUM SERUM 3.3 mmol/L (3.5-5.1); SODIUM SERUM 132 mmol/L (136-145)
[2018-08-31 08:26] LABS: PLATELET COUNT 62 x10^3mcL (130-400); RED CELL DISTRIBUTION WIDTH 23.5 % (11.5-14.5)
[2018-08-31 09:47] VITALS: BP 141/110
[2018-08-31 11:31] LABS: ATYPICAL LYMPH 2 %; BAND NEUTROPHIL 1 % (0-10); BASOPHIL 2 % (0-2); MONOCYTE 9 % (0-7); SEGMENTED NEUTROPHILS 64 % (37-75)
[2018-08-31 11:32] LABS: rbc morphology (normal/abnorm) ABNORMAL (NORMAL)
[2018-08-31 11:33] LABS: PLATELET MORPHOLOGY PLATELETS DECREASED; schistocyte (helmet cell) 1+
[2018-08-31 14:40] VITALS: BP 134/98
[2018-08-31 16:53] VITALS: BP 137/96
[2018-08-31 20:10] VITALS: BP 137/100
[2018-09-01 04:46] VITALS: BP 127/86
[2018-09-01 06:27] LABS: ALBUMIN 3.7 g/dL (3.4-5.0); ALKALINE PHOSPHATASE 69 U/L (46-116); ALT/SGPT 28 U/L (16-63); AST/SGOT 41 U/L (15-37); CALCIUM 8.6 mg/dL (8.5-10.1); CARBON DIOXIDE 22.3 mmol/L (21-32); CHLORIDE SERUM 101 mmol/L (98-107); CREATININE SERUM 0.7 mg/dL (0.7-1.3); GFR1 > 60 mL/min; GLUCOSE SERUM 77 mg/dL (74-106); MAGNESIUM 1.2 mg/dL (1.8-2.4); PHOSPHOROUS 3.3 mg/dL (2.5-4.9); POTASSIUM SERUM 3.4 mmol/L (3.5-5.1); SODIUM SERUM 136 mmol/L (136-145); TOTAL PROTEIN, SERUM 7.7 g/dL (6.4-8.2)
[2018-09-01 06:58] LABS: PLATELET COUNT 52 x10^3mcL (130-400); RED CELL DISTRIBUTION WIDTH 23.9 % (11.5-14.5)
[2018-09-01 09:44] VITALS: BP 152/99
[2018-09-01 12:46] VITALS: BP 140/94
[2018-09-01 18:14] VITALS: BP 145/104
[2018-09-01 20:41] VITALS: BP 140/94
[2018-09-02 05:42] VITALS: BP 137/99
[2018-09-02 07:05] LABS: ALBUMIN 3.5 g/dL (3.4-5.0); ALKALINE PHOSPHATASE 66 U/L (46-116); ALT/SGPT 27 U/L (16-63); AST/SGOT 31 U/L (15-37); BILIRUBIN TOTAL 0.67 mg/dL (0.20-1.00); CALCIUM 8.1 mg/dL (8.5-10.1); CHLORIDE SERUM 105 mmol/L (98-107); CREATININE SERUM 0.6 mg/dL (0.7-1.3); GFR1 > 60 mL/min; GLUCOSE SERUM 92 mg/dL (74-106); MAGNESIUM 1.8 mg/dL (1.8-2.4); PHOSPHOROUS 3.6 mg/dL (2.5-4.9); SODIUM SERUM 142 mmol/L (136-145); TOTAL PROTEIN, SERUM 7.2 g/dL (6.4-8.2)
[2018-09-02 09:08] LABS: BASOPHIL % 0 % (0-2); PLATELET COUNT 75 x10^3mcL (130-400); RED CELL DISTRIBUTION WIDTH 23.9 % (11.5-14.5)
[2018-09-02 09:25] VITALS: BP 127/98
[2018-09-02 13:40] VITALS: BP 128/89
[2018-09-02 17:05] VITALS: BP 147/102
[2018-09-02 21:11] VITALS: BP 138/109
[2018-09-03 05:28] VITALS: BP 124/87
[2018-09-03 09:30] VITALS: BP 135/105
[2018-09-03 11:55] LABS: CALCIUM 8.9 mg/dL (8.5-10.1); CARBON DIOXIDE 28.9 mmol/L (21-32); CHLORIDE SERUM 105 mmol/L (98-107); CREATININE SERUM 0.6 mg/dL (0.7-1.3); GFR1 > 60 mL/min; GLUCOSE SERUM 99 mg/dL (74-106); MAGNESIUM 1.6 mg/dL (1.8-2.4); PHOSPHOROUS 3.8 mg/dL (2.5-4.9); SODIUM SERUM 138 mmol/L (136-145)
[2018-09-03 11:57] LABS: POTASSIUM SERUM 2.8 mmol/L (3.5-5.1)
[2018-09-03 12:36] VITALS: BP 136/95
[2018-09-03 17:05] VITALS: BP 135/96
== END 2018-09-03 19:53 | disposition left against medical advice (07) | DRG 282 ==
LOC: ED 12:18 → MU 15:13 → DU 08-30 15:41
PROVIDERS: Emergency Medicine; Family Medicine; Internal Medicine
DX: K85.20 Alcohol induced acute pancreatitis without necrosis or infection (principal); N17.0 Acute kidney failure with tubular necrosis; F10.229 Alcohol dependence with intoxication, unspecified; D69.59 Other secondary thrombocytopenia; F10.239 Alcohol dependence with withdrawal, unspecified; D64.9 Anemia, unspecified; F41.8 Other specified anxiety disorders; E78.5 Hyperlipidemia, unspecified; E05.80 Other thyrotoxicosis without thyrotoxic crisis or storm; R80.9 Proteinuria, unspecified; I10 Essential (primary) hypertension; F17.210 Nicotine dependence, cigarettes, uncomplicated; Z68.27 Body mass index [BMI] 27.0-27.9, adult; Y90.8 Blood alcohol level of 240 mg/100 ml or more
CPT/HCPCS: 82962; 83880; 97164; G0480; J1885; J2060; J2270; J3475; J3490; J7030

== ENCOUNTER 2018-09-13 23:45 | Inpatient (IN) | payer MEDICAID ==
[~2018-09-13] VITALS: Ht 180.3 cm; Wt 84.4 kg
[~2018-09-13 23:45] MED LIST changes: +METOPROLOL TART25 M1 PO
[2018-09-13 23:58] VITALS: Ht 180.3 cm; Wt 84.4 kg
[2018-09-14 00:44] LABS: BASOPHIL % 0.9 % (0-2); PLATELET COUNT 222 x10^3mcL (130-400)
[2018-09-14 00:46] LABS: RED CELL DISTRIBUTION WIDTH 23.4 % (11.5-14.5)
[2018-09-14 00:57] LABS: CALCIUM 8.9 mg/dL (8.5-10.1); CARBON DIOXIDE 24.3 mmol/L (21-32); CHLORIDE SERUM 95 mmol/L (98-107); CREATININE SERUM 0.9 mg/dL (0.7-1.3); GFR1 > 60 mL/min; GLUCOSE SERUM 224 mg/dL (74-106); POTASSIUM SERUM 3.4 mmol/L (3.5-5.1); SODIUM SERUM 137 mmol/L (136-145)
[2018-09-14 01:02] LABS: ALBUMIN 4.5 g/dL (3.4-5.0); ALKALINE PHOSPHATASE 93 U/L (46-116); ALT/SGPT 50 U/L (16-63); AST/SGOT 61 U/L (15-37); BILIRUBIN TOTAL 0.4 mg/dL (0.20-1.00); LIPASE 610 IU/L (73-393)
[2018-09-14 01:03] LABS: AMYLASE 213 U/L (25-115); TOTAL PROTEIN, SERUM 9.5 g/dL (6.4-8.2)
[2018-09-14 02:47] VITALS: BP 143/93
[2018-09-14 04:06] LABS: CHOLESTEROL/HDL RATIO 2.2; MAGNESIUM 2.1 mg/dL (1.8-2.4)
[2018-09-14 05:03] VITALS: BP 130/86
[2018-09-14 05:30] LABS: T4(THYROXINE) 6.3 ug/dL (4.7-13.3)
[2018-09-14 05:52] LABS: FREE T4 0.72 ng/dL (0.76-1.46)
[2018-09-14 07:41] VITALS: BP 138/86
[2018-09-14 08:20] LABS: T3 TOTAL 0.76 ng/mL
[2018-09-14 12:42] VITALS: BP 137/97
[2018-09-14 15:22] LABS: microscopic required? NO
[2018-09-14 15:33] LABS: UA SPECIFIC GRAVITY <=1.005 (1.005-1.035); urine erythrocyte NEGATIVE (NEGATIVE)
[2018-09-14 16:19] LABS: AMPHETAMINE QUAL UR NONE DETECTED (See below)
[2018-09-14 16:28] VITALS: BP 136/84
[2018-09-14 20:50] VITALS: BP 146/99
[2018-09-15 05:07] VITALS: BP 168/105
[2018-09-15 07:07] LABS: CALCIUM 8.7 mg/dL (8.5-10.1); CHLORIDE SERUM 95 mmol/L (98-107); CREATININE SERUM 0.6 mg/dL (0.7-1.3); GFR1 > 60 mL/min; GLUCOSE SERUM 76 mg/dL (74-106); MAGNESIUM 1.6 mg/dL (1.8-2.4); PHOSPHOROUS 2.2 mg/dL (2.5-4.9)
[2018-09-15 07:49] LABS: CARBON DIOXIDE 26.3 mmol/L (21-32); POTASSIUM SERUM 3.5 mmol/L (3.5-5.1); SODIUM SERUM 133 mmol/L (136-145)
[2018-09-15 08:02] LABS: BASOPHIL % 1.6 % (0-2)
[2018-09-15 08:03] LABS: PLATELET COUNT 111 x10^3mcL (130-400); RED CELL DISTRIBUTION WIDTH 22.5 % (11.5-14.5)
[2018-09-15 08:47] LABS: rbc morphology (normal/abnorm) ABNORMAL (NORMAL)
[2018-09-15 08:48] LABS: target cell (codocyte) 1+
[2018-09-15 09:57] VITALS: BP 145/110
[2018-09-15 12:08] VITALS: BP 151/117
[2018-09-15 19:08] VITALS: BP 140/102
[2018-09-15 20:18] VITALS: BP 160/113
[2018-09-15 22:04] VITALS: BP 143/106
[2018-09-16 05:21] VITALS: BP 143/104
[2018-09-16 07:30] LABS: PLATELET COUNT 98 x10^3mcL (130-400); RED CELL DISTRIBUTION WIDTH 23.2 % (11.5-14.5)
[2018-09-16 07:35] LABS: CALCIUM 9.1 mg/dL (8.5-10.1); CARBON DIOXIDE 29.5 mmol/L (21-32); CHLORIDE SERUM 98 mmol/L (98-107); CREATININE SERUM 0.8 mg/dL (0.7-1.3); GFR1 > 60 mL/min; GLUCOSE SERUM 85 mg/dL (74-106); MAGNESIUM 1.9 mg/dL (1.8-2.4); PHOSPHOROUS 3.2 mg/dL (2.5-4.9); POTASSIUM SERUM 3.1 mmol/L (3.5-5.1); SODIUM SERUM 136 mmol/L (136-145)
[2018-09-16 08:35] VITALS: BP 134/99
[2018-09-16 11:16] LABS: BAND NEUTROPHIL 0 % (0-10); BASOPHIL 0 % (0-2); MONOCYTE 8 % (0-7); SEGMENTED NEUTROPHILS 58 % (37-75)
[2018-09-16 11:18] LABS: PLATELET MORPHOLOGY PLATELETS DECREASED; rbc morphology (normal/abnorm) ABNORMAL (NORMAL); target cell (codocyte) 1+
[2018-09-16 11:19] LABS: ovalocyte/elliptocyte 1+
[2018-09-16 11:58] VITALS: BP 134/95
[2018-09-16] MEDS ORDERED: PHE30 PO ×2 (13:21)
[2018-09-16] MEDS ORDERED: PHENOBARBI20 MG/5 ML PO (13:22)
[2018-09-16 14:02] VITALS: BP 134/95
== END 2018-09-16 15:56 | disposition home or self-care (01) | DRG 282 ==
LOC: ED 23:45 → DU 09-14 02:03
PROVIDERS: Emergency Medicine; Family Medicine
DX: K85.20 Alcohol induced acute pancreatitis without necrosis or infection (principal); G92 Toxic encephalopathy; E83.42 Hypomagnesemia; E83.39 Other disorders of phosphorus metabolism; F10.239 Alcohol dependence with withdrawal, unspecified; I10 Essential (primary) hypertension; E78.5 Hyperlipidemia, unspecified; E87.1 Hypo-osmolality and hyponatremia; E87.6 Hypokalemia; R74.0 Nonspecific elevation of levels of transaminase and lactic acid dehydrogenase [LDH]; Y90.8 Blood alcohol level of 240 mg/100 ml or more; Z68.25 Body mass index [BMI] 25.0-25.9, adult; F17.210 Nicotine dependence, cigarettes, uncomplicated
CPT/HCPCS: 83880; 84439; G0480; J1630; J2060; J2270; J2405; J3411; J3475; J3480; J3490; J7030; Q0092

== ENCOUNTER 2018-11-03 10:16 | Inpatient (IN) | payer MEDICAID ==
[~2018-11-03] VITALS: Ht 180.3 cm; Wt 89.4 kg
[~2018-11-03 10:16] MED LIST changes: +PHE30 PO; +PHENOBARBI20 MG/5 ML PO
[2018-11-03 10:18] VITALS: Ht 180.3 cm; Wt 89.4 kg
[2018-11-03 11:14] LABS: PLATELET COUNT 321 x10^3mcL (130-400)
[2018-11-03 11:21] LABS: CALCIUM 9.6 mg/dL (8.5-10.1); CHLORIDE SERUM 97 mmol/L (98-107); GFR1 > 60 mL/min; GLUCOSE SERUM 114 mg/dL (74-106); POTASSIUM SERUM 3.5 mmol/L (3.5-5.1); SODIUM SERUM 141 mmol/L (136-145)
[2018-11-03 11:24] LABS: ALBUMIN 4.9 g/dL (3.4-5.0); ALKALINE PHOSPHATASE 73 U/L (46-116); ALT/SGPT 24 U/L (16-63); AST/SGOT 21 U/L (15-37); BILIRUBIN TOTAL 0.7 mg/dL (0.20-1.00); LIPASE 524 IU/L (73-393)
[2018-11-03 11:31] LABS: TOTAL PROTEIN, SERUM 9.2 g/dL (6.4-8.2)
[2018-11-03 11:32] LABS: RED CELL DISTRIBUTION WIDTH 20.5 % (11.5-14.5)
[2018-11-03 12:19] LABS: BAND NEUTROPHIL 1 % (0-10); MONOCYTE 3 % (0-7); SEGMENTED NEUTROPHILS 71 % (37-75); rbc morphology (normal/abnorm) ABNORMAL (NORMAL); target cell (codocyte) 2+
[2018-11-03 12:20] LABS: PLATELET MORPHOLOGY LARGE PLATELET SEEN
[2018-11-03 13:56] LABS: AMPHETAMINE QUAL UR NONE DETECTED (See below)
[2018-11-03] MEDS ORDERED: PLA75 PO (14:59)
[2018-11-03] MEDS ORDERED: CELEXA20 MG PO (14:59)
[2018-11-03] MEDS ORDERED: ATIVAN2 MG PO (15:00)
[2018-11-03 17:06] LABS: microscopic required? YES; urine erythrocyte NEGATIVE (NEGATIVE)
[2018-11-03 17:07] VITALS: BP 126/75
[2018-11-03 17:17] LABS: MAGNESIUM 1.3 mg/dL (1.8-2.4)
[2018-11-03 17:17] LABS: PLATELET COUNT 277 x10^3mcL (130-400)
[2018-11-03 17:25] LABS: RED CELL DISTRIBUTION WIDTH 20.6 % (11.5-14.5)
[2018-11-03 17:25] LABS: T3 TOTAL 1.03 ng/mL
[2018-11-03 17:39] LABS: FREE T4 1.06 ng/dL (0.76-1.46); FREE THYROXINE INDEX 2.9 ug/dL (1.4-4.5); T4(THYROXINE) 8.2 ug/dL (4.7-13.3)
[2018-11-03 18:13] LABS: BAND NEUTROPHIL 2 % (0-10); MONOCYTE 5 % (0-7); MYELOCYTE 1 % (0-2); SEGMENTED NEUTROPHILS 84 % (37-75); rbc morphology (normal/abnorm) ABNORMAL (NORMAL); target cell (codocyte) 1+
[2018-11-03 18:14] LABS: PLATELET MORPHOLOGY FEW LARGE PLATELET
[2018-11-03 20:45] VITALS: BP 130/84
[2018-11-04 06:04] VITALS: BP 126/90
[2018-11-04 07:23] LABS: ALBUMIN 3.5 g/dL (3.4-5.0); ALKALINE PHOSPHATASE 53 U/L (46-116); ALT/SGPT 18 U/L (16-63); AST/SGOT 16 U/L (15-37); BILIRUBIN TOTAL 1.1 mg/dL (0.20-1.00); CALCIUM 8.8 mg/dL (8.5-10.1); CARBON DIOXIDE 25.4 mmol/L (21-32); CHLORIDE SERUM 102 mmol/L (98-107); CREATININE SERUM 0.8 mg/dL (0.7-1.3); GFR1 > 60 mL/min; GLUCOSE SERUM 88 mg/dL (74-106); LIPASE 203 IU/L (73-393); MAGNESIUM 1.9 mg/dL (1.8-2.4); PHOSPHOROUS 3.6 mg/dL (2.5-4.9); POTASSIUM SERUM 3.3 mmol/L (3.5-5.1); SODIUM SERUM 138 mmol/L (136-145)
[2018-11-04 07:59] LABS: BASOPHIL % 0.6 % (0-2); PLATELET COUNT 242 x10^3mcL (130-400)
[2018-11-04 08:02] LABS: RED CELL DISTRIBUTION WIDTH 19.8 % (11.5-14.5)
[2018-11-04 08:12] VITALS: BP 104/78
[2018-11-04 12:06] VITALS: BP 110/73
[2018-11-04 16:17] VITALS: BP 113/86
[2018-11-04 21:17] VITALS: BP 109/77
[2018-11-05 05:44] VITALS: BP 102/68
[2018-11-05 06:23] LABS: BASOPHIL % 0.3 % (0-2); PLATELET COUNT 215 x10^3mcL (130-400)
[2018-11-05 06:51] LABS: CALCIUM 8.4 mg/dL (8.5-10.1); CHLORIDE SERUM 105 mmol/L (98-107); CREATININE SERUM 0.9 mg/dL (0.7-1.3); GFR1 > 60 mL/min; GLUCOSE SERUM 86 mg/dL (74-106); MAGNESIUM 1.8 mg/dL (1.8-2.4); POTASSIUM SERUM 3.7 mmol/L (3.5-5.1); SODIUM SERUM 140 mmol/L (136-145)
[2018-11-05 06:54] LABS: RED CELL DISTRIBUTION WIDTH 20.4 % (11.5-14.5)
[2018-11-05 08:23] VITALS: BP 105/74
[2018-11-05 12:09] VITALS: BP 107/66
[2018-11-05 12:11] VITALS: BP 107/66
== END 2018-11-05 13:10 | disposition home or self-care (01) | DRG 775 ==
LOC: ED 10:16 → MU 14:39 → DU 14:39
PROVIDERS: Emergency Medicine; ADMIT Internal Medicine
DX: F10.239 Alcohol dependence with withdrawal, unspecified (principal); F10.220 Alcohol dependence with intoxication, uncomplicated; K85.90 Acute pancreatitis without necrosis or infection, unspecified; K22.6 Gastro-esophageal laceration-hemorrhage syndrome; E83.42 Hypomagnesemia; F12.10 Cannabis abuse, uncomplicated; D50.9 Iron deficiency anemia, unspecified; E78.5 Hyperlipidemia, unspecified; T51.0X1A Toxic effect of ethanol, accidental (unintentional), initial encounter; I10 Essential (primary) hypertension; Y90.0 Blood alcohol level of less than 20 mg/100 ml; Z68.25 Body mass index [BMI] 25.0-25.9, adult
CPT/HCPCS: 84439; C9113; G0480; J2060; J2405; J3475; J7030; Q0092

== ENCOUNTER 2019-01-07 00:21 | Inpatient (IN) | payer MEDICAID ==
[~2019-01-07] VITALS: Ht 180.3 cm; Wt 86.7 kg
[~2019-01-07 00:21] MED LIST changes: +CELEXA20 MG PO; +PLA75 PO
[2019-01-07 00:44] VITALS: Ht 180.3 cm; Wt 86.7 kg
[2019-01-07 02:27] LABS: PLATELET COUNT 104 x10^3mcL (130-400); RED CELL DISTRIBUTION WIDTH 24.3 % (11.5-14.5)
[2019-01-07 02:36] LABS: ALBUMIN 4.5 g/dL (3.4-5.0); ALKALINE PHOSPHATASE 89 U/L (46-116); ALT/SGPT 42 U/L (16-63); AST/SGOT 60 U/L (15-37); BILIRUBIN TOTAL 1.03 mg/dL (0.20-1.00); CALCIUM 8.9 mg/dL (8.5-10.1); CARBON DIOXIDE 29.6 mmol/L (21-32); CHLORIDE SERUM 98 mmol/L (98-107); CREATININE SERUM 0.8 mg/dL (0.7-1.3); GFR1 > 60 mL/min; GLUCOSE SERUM 120 mg/dL (74-106); LIPASE 477 IU/L (73-393); POTASSIUM SERUM 3.6 mmol/L (3.5-5.1); SODIUM SERUM 142 mmol/L (136-145)
[2019-01-07 02:49] LABS: TOTAL PROTEIN, SERUM 9.1 g/dL (6.4-8.2)
[2019-01-07 02:51] LABS: BAND NEUTROPHIL 3 % (0-10); MONOCYTE 3 % (0-7); SEGMENTED NEUTROPHILS 75 % (37-75)
[2019-01-07 02:52] LABS: rbc morphology (normal/abnorm) ABNORMAL (NORMAL); target cell (codocyte) 1+; tear drop cell (dacryocyte) 1+
[2019-01-07 02:53] LABS: PLATELET MORPHOLOGY PLATELETS DECREASED
[2019-01-07 08:33] VITALS: BP 140/100
[2019-01-07 13:54] VITALS: BP 140/90
[2019-01-07] MEDS ORDERED: METOPROLOL TART25 M1 PO (16:59)
[2019-01-07 17:44] VITALS: BP 137/94
[2019-01-07 19:55] VITALS: BP 141/94
[2019-01-08 00:58] LABS: UA SPECIFIC GRAVITY 1.015 (1.005-1.035); microscopic required? YES; urine erythrocyte NEGATIVE (NEGATIVE)
[2019-01-08 01:35] LABS: AMPHETAMINE QUAL UR NONE DETECTED (See below)
[2019-01-08 06:00] VITALS: BP 139/79
[2019-01-08 07:44] LABS: CALCIUM 8.6 mg/dL (8.5-10.1); CARBON DIOXIDE 27.1 mmol/L (21-32); CHLORIDE SERUM 102 mmol/L (98-107); CREATININE SERUM 0.7 mg/dL (0.7-1.3); GFR1 > 60 mL/min; GLUCOSE SERUM 75 mg/dL (74-106); LIPASE 483 IU/L (73-393); POTASSIUM SERUM 4.2 mmol/L (3.5-5.1); SODIUM SERUM 138 mmol/L (136-145)
[2019-01-08 08:45] LABS: RED CELL DISTRIBUTION WIDTH 24.4 % (11.5-14.5)
[2019-01-08 09:39] VITALS: BP 149/91
[2019-01-08 11:39] LABS: ATYPICAL LYMPH 6 %; BAND NEUTROPHIL 0 % (0-10); BASOPHIL 0 % (0-2); MONOCYTE 10 % (0-7); SEGMENTED NEUTROPHILS 28 % (37-75); rbc morphology (normal/abnorm) ABNORMAL (NORMAL)
[2019-01-08 11:40] LABS: PLATELET MORPHOLOGY PLATELETS DECREASED
[2019-01-08 11:41] LABS: PLATELET COUNT 45 x10^3mcL (130-400)
[2019-01-08 12:28] VITALS: BP 158/99
[2019-01-08 14:30] VITALS: BP 139/106
[2019-01-08 17:46] VITALS: BP 155/97
[2019-01-08 21:14] VITALS: BP 152/99
[2019-01-09 05:28] VITALS: BP 145/100
[2019-01-09 07:45] LABS: CALCIUM 8.9 mg/dL (8.5-10.1); CARBON DIOXIDE 27.6 mmol/L (21-32); CHLORIDE SERUM 100 mmol/L (98-107); CREATININE SERUM 0.7 mg/dL (0.7-1.3); GFR1 > 60 mL/min; GLUCOSE SERUM 105 mg/dL (74-106); MAGNESIUM 1.6 mg/dL (1.8-2.4); POTASSIUM SERUM 3.8 mmol/L (3.5-5.1); SODIUM SERUM 137 mmol/L (136-145)
[2019-01-09 09:51] VITALS: BP 138/97
[2019-01-09 13:12] LABS: ATYPICAL LYMPH 8 %; BAND NEUTROPHIL 0 % (0-10); BASOPHIL 1 % (0-2); MONOCYTE 7 % (0-7); SEGMENTED NEUTROPHILS 53 % (37-75)
[2019-01-09 13:13] LABS: PLATELET MORPHOLOGY PLATELETS DECREASED; rbc morphology (normal/abnorm) ABNORMAL (NORMAL)
[2019-01-09 13:33] VITALS: BP 130/89
[2019-01-09 14:18] LABS: PLATELET COUNT 42 x10^3mcL (130-400)
[2019-01-09 17:14] VITALS: BP 133/91
[2019-01-09 20:56] VITALS: BP 113/76
[2019-01-10 06:06] VITALS: BP 127/89
[2019-01-10 06:19] LABS: CALCIUM 9.2 mg/dL (8.5-10.1); CARBON DIOXIDE 28.5 mmol/L (21-32); CHLORIDE SERUM 102 mmol/L (98-107); CREATININE SERUM 0.8 mg/dL (0.7-1.3); GFR1 > 60 mL/min; GLUCOSE SERUM 84 mg/dL (74-106); MAGNESIUM 1.7 mg/dL (1.8-2.4); POTASSIUM SERUM 4.3 mmol/L (3.5-5.1); SODIUM SERUM 138 mmol/L (136-145)
[2019-01-10 06:40] LABS: RED CELL DISTRIBUTION WIDTH 24.4 % (11.5-14.5)
[2019-01-10 09:40] LABS: ATYPICAL LYMPH 6 %; BAND NEUTROPHIL 0 % (0-10); BASOPHIL 0 % (0-2); MONOCYTE 13 % (0-7); SEGMENTED NEUTROPHILS 63 % (37-75)
[2019-01-10 09:41] LABS: PLATELET MORPHOLOGY PLATELETS DECREASED
[2019-01-10 09:42] LABS: acanthocyte (spur cell) 2+; rbc morphology (normal/abnorm) ABNORMAL (NORMAL); tear drop cell (dacryocyte) 1+
[2019-01-10 09:50] LABS: PLATELET COUNT 49 x10^3mcL (130-400)
[2019-01-10 10:12] VITALS: BP 124/64
[2019-01-10 13:31] VITALS: BP 112/85
[2019-01-10 18:41] VITALS: BP 121/84
[2019-01-10 21:29] VITALS: BP 127/87
[2019-01-11 06:00] VITALS: BP 117/76
[2019-01-11 06:57] LABS: BASOPHIL % 0.2 % (0-2)
[2019-01-11 06:59] LABS: CALCIUM 9.2 mg/dL (8.5-10.1); CARBON DIOXIDE 28.2 mmol/L (21-32); CHLORIDE SERUM 100 mmol/L (98-107); CREATININE SERUM 0.7 mg/dL (0.7-1.3); GFR1 > 60 mL/min; GLUCOSE SERUM 87 mg/dL (74-106); MAGNESIUM 1.7 mg/dL (1.8-2.4); POTASSIUM SERUM 3.5 mmol/L (3.5-5.1); SODIUM SERUM 136 mmol/L (136-145)
[2019-01-11 07:13] LABS: PLATELET COUNT 64 x10^3mcL (130-400); RED CELL DISTRIBUTION WIDTH 24.3 % (11.5-14.5)
[2019-01-11 08:31] VITALS: BP 120/88
[2019-01-11 12:35] VITALS: BP 105/68
[2019-01-11 17:03] VITALS: BP 107/71
[2019-01-11 21:12] VITALS: BP 112/85
[2019-01-12] MEDS ORDERED: PHARMASSURE FO0.4 MG (19:18)
[2019-01-12] MEDS ORDERED: FOLBIC RF1 TAB PO (19:18)
[2019-01-12] MEDS ORDERED: ATIVAN0.5 M1 (19:18)
== END 2019-01-11 21:25 | disposition left against medical advice (07) | DRG 282 ==
LOC: ED 00:21 → DU 06:28
PROVIDERS: Emergency Medicine; Internal Medicine; ADMIT General Practice
DX: K85.20 Alcohol induced acute pancreatitis without necrosis or infection (principal); N17.0 Acute kidney failure with tubular necrosis; F10.129 Alcohol abuse with intoxication, unspecified; F32.9 Major depressive disorder, single episode, unspecified; F41.9 Anxiety disorder, unspecified; E78.5 Hyperlipidemia, unspecified; I10 Essential (primary) hypertension; D72.819 Decreased white blood cell count, unspecified; E83.42 Hypomagnesemia; Y90.8 Blood alcohol level of 240 mg/100 ml or more; R74.0 Nonspecific elevation of levels of transaminase and lactic acid dehydrogenase [LDH]; F17.210 Nicotine dependence, cigarettes, uncomplicated; Z68.26 Body mass index [BMI] 26.0-26.9, adult
CPT/HCPCS: G0480; J1885; J2060; J2270; J2405; J3411; J3475; J3490; J7030; Q0092

== ENCOUNTER 2019-01-12 16:19 | Inpatient (IN) | payer MEDICAID ==
[~2019-01-12] VITALS: Ht 180.3 cm; Wt 87.4 kg
[2019-01-12 17:18] LABS: BASOPHIL % 1.1 % (0-2)
[2019-01-12 17:20] LABS: PLATELET COUNT 110 x10^3mcL (130-400); RED CELL DISTRIBUTION WIDTH 25.7 % (11.5-14.5)
[2019-01-12 17:21] LABS: CARBON DIOXIDE 28.9 mmol/L (21-32); CREATININE SERUM 1.5 mg/dL (0.7-1.3); POTASSIUM SERUM 3.2 mmol/L (3.5-5.1)
[2019-01-12 17:30] LABS: BILIRUBIN TOTAL 0.59 mg/dL (0.20-1.00); TOTAL PROTEIN, SERUM 7.8 g/dL (6.4-8.2)
[2019-01-12 17:39] LABS: rbc morphology (normal/abnorm) ABNORMAL (NORMAL); target cell (codocyte) 1+
[2019-01-12 18:47] LABS: AMPHETAMINE QUAL UR NONE DETECTED (See below)
[2019-01-12] MEDS ORDERED: ATIVAN0.5 M1 (19:18)
[2019-01-12] MEDS ORDERED: PHARMASSURE FO0.4 MG (19:18)
[2019-01-12] MEDS ORDERED: FOLBIC RF1 TAB PO (19:18)
[2019-01-12 20:32] LABS: MAGNESIUM 1.7 mg/dL (1.8-2.4); PHOSPHOROUS 1.8 mg/dL (2.5-4.9)
[2019-01-12 21:12] VITALS: BP 113/72
[2019-01-13 01:15] VITALS: BP 94/56
[2019-01-13 06:42] LABS: microscopic required? NO
[2019-01-13 07:06] LABS: BASOPHIL % 0.1 % (0-2)
[2019-01-13 07:13] LABS: CARBON DIOXIDE 29.2 mmol/L (21-32); CHLORIDE SERUM 105 mmol/L (98-107); CREATININE SERUM 1.1 mg/dL (0.7-1.3); GFR1 > 60 mL/min; GLUCOSE SERUM 87 mg/dL (74-106); PHOSPHOROUS 5.5 mg/dL (2.5-4.9); SODIUM SERUM 144 mmol/L (136-145)
[2019-01-13 07:24] LABS: PLATELET COUNT 109 x10^3mcL (130-400); RED CELL DISTRIBUTION WIDTH 25.6 % (11.5-14.5)
[2019-01-13 07:45] LABS: rbc morphology (normal/abnorm) ABNORMAL (NORMAL); target cell (codocyte) 1+
[2019-01-13 08:03] LABS: urine erythrocyte NEGATIVE (NEGATIVE)
[2019-01-13 08:30] VITALS: BP 107/69
[2019-01-13 12:12] VITALS: BP 109/71
[2019-01-13 15:57] VITALS: BP 92/52
[2019-01-13 23:01] VITALS: BP 121/85
[2019-01-14] VITALS (7 sets, daily range): BP systolic 118–151; BP diastolic 82–111
[2019-01-14 06:30] LABS: PLATELET COUNT 135 x10^3mcL (130-400)
[2019-01-14 06:55] LABS: CALCIUM 8.9 mg/dL (8.5-10.1); CARBON DIOXIDE 29.7 mmol/L (21-32); CHLORIDE SERUM 108 mmol/L (98-107); CREATININE SERUM 0.8 mg/dL (0.7-1.3); GFR1 > 60 mL/min; GLUCOSE SERUM 83 mg/dL (74-106); MAGNESIUM 1.7 mg/dL (1.8-2.4); PHOSPHOROUS 4.1 mg/dL (2.5-4.9); POTASSIUM SERUM 4.2 mmol/L (3.5-5.1); SODIUM SERUM 144 mmol/L (136-145)
[2019-01-14 08:25] LABS: RED CELL DISTRIBUTION WIDTH 26.9 % (11.5-14.5)
[2019-01-14 13:53] LABS: ATYPICAL LYMPH 2 %; MONOCYTE 10 % (0-7); SEGMENTED NEUTROPHILS 42 % (37-75)
[2019-01-14 13:54] LABS: PLATELET MORPHOLOGY PLATELETS DECREASED; rbc morphology (normal/abnorm) ABNORMAL (NORMAL)
[2019-01-15] VITALS (7 sets, daily range): BP systolic 114–146; BP diastolic 67–101; Ht 180.3 cm; Wt 87.4 kg
[2019-01-15 05:47] LABS: BASOPHIL % 0.6 % (0-2); PLATELET COUNT 158 x10^3mcL (130-400)
[2019-01-15 05:50] LABS: CALCIUM 9.2 mg/dL (8.5-10.1); CARBON DIOXIDE 26.3 mmol/L (21-32); CHLORIDE SERUM 107 mmol/L (98-107); CREATININE SERUM 0.7 mg/dL (0.7-1.3); GFR1 > 60 mL/min; GLUCOSE SERUM 85 mg/dL (74-106); MAGNESIUM 2.1 mg/dL (1.8-2.4); PHOSPHOROUS 3.7 mg/dL (2.5-4.9); POTASSIUM SERUM 4.2 mmol/L (3.5-5.1); SODIUM SERUM 142 mmol/L (136-145)
[2019-01-15 05:52] LABS: RED CELL DISTRIBUTION WIDTH 26.5 % (11.5-14.5)
[2019-01-15 06:13] LABS: acanthocyte (spur cell) 2+; rbc morphology (normal/abnorm) ABNORMAL (NORMAL); target cell (codocyte) 1+
[2019-01-16 03:52] VITALS: BP 108/71
[2019-01-16 05:40] LABS: BASOPHIL % 1.9 % (0-2); PLATELET COUNT 222 x10^3mcL (130-400)
[2019-01-16 05:46] LABS: RED CELL DISTRIBUTION WIDTH 25.8 % (11.5-14.5)
[2019-01-16 06:01] LABS: rbc morphology (normal/abnorm) ABNORMAL (NORMAL); target cell (codocyte) 1+
[2019-01-16 06:05] LABS: CALCIUM 9.6 mg/dL (8.5-10.1); CARBON DIOXIDE 29.5 mmol/L (21-32); CHLORIDE SERUM 106 mmol/L (98-107); CREATININE SERUM 0.9 mg/dL (0.7-1.3); GFR1 > 60 mL/min; GLUCOSE SERUM 95 mg/dL (74-106); POTASSIUM SERUM 3.9 mmol/L (3.5-5.1); SODIUM SERUM 145 mmol/L (136-145)
[2019-01-16 11:00] VITALS: BP 174/102
[2019-01-16 12:55] VITALS: BP 126/72
[2019-01-16] MEDS ORDERED: ZES5 PO (16:03)
[2019-01-16] MEDS ORDERED: ECO81 PO (16:03)
[2019-01-16] MEDS ORDERED: LIPI10 PO (16:03)
[2019-01-16 16:05] VITALS: BP 137/91
[2019-01-16] MEDS ORDERED: NIT0.4 SL (16:07)
[2019-01-16 17:26] VITALS: BP 140/94
== END 2019-01-16 20:08 | disposition short-term general hospital (02) | DRG 190 ==
LOC: ED 16:19 → DU 19:56 → IC 01-14 14:51 → DU 01-14 14:55 → IC 01-14 14:59
PROVIDERS: Specialist; ADMIT Internal Medicine
PROC: 5A2204Z Restoration of Cardiac Rhythm, Single (ICD-10-PCS; principal; 2019-01-12)
DX: I21.4 Non-ST elevation (NSTEMI) myocardial infarction (principal); N17.0 Acute kidney failure with tubular necrosis; E83.42 Hypomagnesemia; E83.39 Other disorders of phosphorus metabolism; I47.1 Supraventricular tachycardia; F12.129 Cannabis abuse with intoxication, unspecified; F41.8 Other specified anxiety disorders; E87.6 Hypokalemia; I45.6 Pre-excitation syndrome; G40.909 Epilepsy, unspecified, not intractable, without status epilepticus; I10 Essential (primary) hypertension; F13.10 Sedative, hypnotic or anxiolytic abuse, uncomplicated; F10.20 Alcohol dependence, uncomplicated; F17.210 Nicotine dependence, cigarettes, uncomplicated; Y90.0 Blood alcohol level of less than 20 mg/100 ml; Z68.26 Body mass index [BMI] 26.0-26.9, adult
CPT/HCPCS: 83880; 87046; 87046-59; G0480; J0153; J0282; J1327; J1644; J1885; J2060; J2270; J3010; J3475; J3490; J7030; Q0092

== ENCOUNTER 2019-01-20 14:28 | Emergency (ER) | payer MEDICAID ==
[~2019-01-20] VITALS: Ht 180.3 cm; Wt 86.7 kg
[~2019-01-20 14:28] MED LIST changes: +ECO81 PO; +FOLBIC RF1 TAB PO; +LIPI10 PO; +NIT0.4 SL; +ZES5 PO
[2019-01-20 14:41] VITALS: Ht 180.3 cm; Wt 86.7 kg
[2019-01-20 16:55] LABS: CALCIUM 9.8 mg/dL (8.5-10.1); CARBON DIOXIDE 28.5 mmol/L (21-32); CHLORIDE SERUM 99 mmol/L (98-107); GFR1 > 60 mL/min; GLUCOSE SERUM 98 mg/dL (74-106); POTASSIUM SERUM 4.1 mmol/L (3.5-5.1); SODIUM SERUM 137 mmol/L (136-145)
[2019-01-20 16:56] LABS: BASOPHIL % 0.9 % (0-2)
[2019-01-20 16:58] LABS: PLATELET COUNT 447 x10^3mcL (130-400); RED CELL DISTRIBUTION WIDTH 25.6 % (11.5-14.5)
[2019-01-20 17:01] LABS: ALBUMIN 4.5 g/dL (3.4-5.0); ALKALINE PHOSPHATASE 67 U/L (46-116); ALT/SGPT 31 U/L (16-63); AST/SGOT 17 U/L (15-37); BILIRUBIN TOTAL 0.5 mg/dL (0.20-1.00); TOTAL PROTEIN, SERUM 9.3 g/dL (6.4-8.2)
[2019-01-20 17:14] LABS: rbc morphology (normal/abnorm) ABNORMAL (NORMAL)
[2019-01-20 21:42] VITALS: BP 125/76
== END 2019-01-20 21:42 | disposition home or self-care (01) ==
LOC: ED 14:28
DX: F41.9 Anxiety disorder, unspecified (principal); I21.4 Non-ST elevation (NSTEMI) myocardial infarction; R07.89 Other chest pain; I10 Essential (primary) hypertension; F32.9 Major depressive disorder, single episode, unspecified; Z90.89 Acquired absence of other organs
CPT/HCPCS: 36415; 83880; J2270

== ENCOUNTER 2019-02-07 19:09 | Emergency (ER) | payer MEDICAID ==
[~2019-02-07] VITALS: Ht 180.3 cm; Wt 86.2 kg
[2019-02-07 19:31] VITALS: Ht 180.3 cm; Wt 86.2 kg
[2019-02-07 20:29] LABS: PLATELET COUNT 197 x10^3mcL (130-400)
[2019-02-07 20:39] LABS: CALCIUM 8.5 mg/dL (8.5-10.1); CARBON DIOXIDE 31.8 mmol/L (21-32); CHLORIDE SERUM 101 mmol/L (98-107); CREATININE SERUM 0.9 mg/dL (0.7-1.3); GFR1 > 60 mL/min; GLUCOSE SERUM 111 mg/dL (74-106); POTASSIUM SERUM 4.1 mmol/L (3.5-5.1); SODIUM SERUM 143 mmol/L (136-145)
[2019-02-07 20:43] LABS: AMPHETAMINE QUAL UR NONE DETECTED (See below)
[2019-02-07 20:45] LABS: RED CELL DISTRIBUTION WIDTH 23.5 % (11.5-14.5)
[2019-02-07 20:46] LABS: ALBUMIN 4.1 g/dL (3.4-5.0); ALKALINE PHOSPHATASE 78 U/L (46-116); ALT/SGPT 27 U/L (16-63); AST/SGOT 26 U/L (15-37); BILIRUBIN TOTAL 0.25 mg/dL (0.20-1.00)
[2019-02-07 20:57] LABS: BAND NEUTROPHIL 1 % (0-10); BASOPHIL 0 % (0-2); MONOCYTE 2 % (0-7); SEGMENTED NEUTROPHILS 49 % (37-75)
[2019-02-07 21:00] LABS: rbc morphology (normal/abnorm) ABNORMAL (NORMAL); target cell (codocyte) 2+
[2019-02-07 23:02] VITALS: BP 141/91
== END 2019-02-07 23:02 | disposition home or self-care (01) ==
LOC: ED 19:09
PROVIDERS: Emergency Medicine
DX: R07.89 Other chest pain (principal); F10.129 Alcohol abuse with intoxication, unspecified; I10 Essential (primary) hypertension; F41.9 Anxiety disorder, unspecified; F32.9 Major depressive disorder, single episode, unspecified; I45.6 Pre-excitation syndrome; Z90.89 Acquired absence of other organs
CPT/HCPCS: G0480; J2270; J7030; Q0092

== ENCOUNTER 2019-02-13 02:00 | Inpatient (IN) | payer MEDICAID ==
[~2019-02-13] VITALS: Ht 180.3 cm; Wt 89.0 kg
[2019-02-13 03:16] LABS: PLATELET COUNT 61 x10^3mcL (130-400); RED CELL DISTRIBUTION WIDTH 23.9 % (11.5-14.5)
[2019-02-13 03:33] LABS: MONOCYTE 1 % (0-7); SEGMENTED NEUTROPHILS 75 % (37-75)
[2019-02-13 03:36] LABS: PLATELET MORPHOLOGY PLATELETS DECREASED; rbc morphology (normal/abnorm) ABNORMAL (NORMAL); target cell (codocyte) 1+
[2019-02-13 03:40] LABS: ALBUMIN 4.8 g/dL (3.4-5.0); CARBON DIOXIDE 27.4 mmol/L (21-32); CHLORIDE SERUM 95 mmol/L (98-107); CREATININE SERUM 0.8 mg/dL (0.7-1.3); GFR1 > 60 mL/min; GLUCOSE SERUM 150 mg/dL (74-106); POTASSIUM SERUM 3.3 mmol/L (3.5-5.1); SODIUM SERUM 139 mmol/L (136-145); TOTAL PROTEIN, SERUM 9.3 g/dL (6.4-8.2)
[2019-02-13 03:41] LABS: ALKALINE PHOSPHATASE 83 U/L (46-116); ALT/SGPT 40 U/L (16-63); AST/SGOT 50 U/L (15-37); BILIRUBIN TOTAL 0.63 mg/dL (0.20-1.00); CALCIUM 8.6 mg/dL (8.5-10.1); LIPASE 345 IU/L (73-393)
[2019-02-13 06:18] LABS: PHOSPHOROUS 3.6 mg/dL (2.5-4.9)
[2019-02-13 06:20] LABS: CHOLESTEROL/HDL RATIO 1.8
[2019-02-13 06:46] VITALS: BP 125/88
[2019-02-13 06:46] LABS: T3 TOTAL 0.95 ng/mL
[2019-02-13 06:50] LABS: AMPHETAMINE QUAL UR NONE DETECTED (See below)
[2019-02-13 07:21] LABS: microscopic required? YES; urine erythrocyte NEGATIVE (NEGATIVE)
[2019-02-13 09:21] VITALS: BP 140/97
[2019-02-13 09:46] LABS: FREE T4 0.77 ng/dL (0.76-1.46); FREE THYROXINE INDEX 2.2 ug/dL (1.4-4.5); T4(THYROXINE) 6.1 ug/dL (4.7-13.3)
[2019-02-13 12:33] VITALS: BP 142/88
[2019-02-13 17:24] VITALS: BP 139/99
[2019-02-13 21:48] VITALS: BP 143/99
[2019-02-14 05:07] VITALS: BP 128/95
[2019-02-14 09:45] VITALS: BP 127/59; BP 159/103
[2019-02-14 13:08] VITALS: BP 142/99
[2019-02-14 16:44] VITALS: BP 143/96
[2019-02-14 21:11] VITALS: BP 140/90
[2019-02-15 06:31] LABS: CALCIUM 9.6 mg/dL (8.5-10.1); CARBON DIOXIDE 24.8 mmol/L (21-32); CHLORIDE SERUM 100 mmol/L (98-107); CREATININE SERUM 0.7 mg/dL (0.7-1.3); GFR1 > 60 mL/min; GLUCOSE SERUM 96 mg/dL (74-106); POTASSIUM SERUM 4.1 mmol/L (3.5-5.1); SODIUM SERUM 137 mmol/L (136-145)
[2019-02-15 06:33] VITALS: BP 138/91
[2019-02-15 07:01] LABS: RED CELL DISTRIBUTION WIDTH 23.9 % (11.5-14.5)
[2019-02-15 07:02] LABS: PLATELET COUNT 43 x10^3mcL (130-400)
[2019-02-15 07:53] VITALS: Ht 180.3 cm; Wt 89.0 kg
[2019-02-15 08:59] VITALS: BP 152/108
[2019-02-15 09:40] LABS: ATYPICAL LYMPH 3 %; BAND NEUTROPHIL 0 % (0-10); BASOPHIL 0 % (0-2); MONOCYTE 6 % (0-7); SEGMENTED NEUTROPHILS 79 % (37-75)
[2019-02-15 09:41] LABS: PLATELET MORPHOLOGY PLATELETS DECREASED
[2019-02-15 09:42] LABS: rbc morphology (normal/abnorm) ABNORMAL (NORMAL)
[2019-02-15 12:20] VITALS: BP 139/106
[2019-02-15 16:39] VITALS: BP 148/100
[2019-02-15 20:32] VITALS: BP 116/79
[2019-02-16 05:24] VITALS: BP 111/76
[2019-02-16 08:46] VITALS: BP 123/78
[2019-02-16 11:44] VITALS: BP 123/78
[2019-02-16 12:15] VITALS: BP 121/84
== END 2019-02-16 13:40 | disposition home or self-care (01) | DRG 775 ==
LOC: ED 02:00 → DU 05:32 → EDBEDREQ 05:57 → DU 06:30
PROVIDERS: Emergency Medicine; Internal Medicine; ADMIT Family Medicine
DX: F10.239 Alcohol dependence with withdrawal, unspecified (principal); I42.0 Dilated cardiomyopathy; E87.6 Hypokalemia; I10 Essential (primary) hypertension; F32.9 Major depressive disorder, single episode, unspecified; F41.9 Anxiety disorder, unspecified; I25.2 Old myocardial infarction; F12.10 Cannabis abuse, uncomplicated; Y90.9 Presence of alcohol in blood, level not specified; Y90.7 Blood alcohol level of 200-239 mg/100 ml; F17.210 Nicotine dependence, cigarettes, uncomplicated; Z68.25 Body mass index [BMI] 25.0-25.9, adult; Z91.14 Patient's other noncompliance with medication regimen
CPT/HCPCS: 84439; G0480; J0696; J2060; J3370; J3475; J7030; Q0092

== ENCOUNTER 2019-03-06 00:30 | Emergency (ER) | payer MEDICAID ==
[~2019-03-06] VITALS: Ht 180.3 cm; Wt 86.2 kg
[2019-03-06 00:33] VITALS: Ht 180.3 cm; Wt 86.2 kg
[2019-03-06 02:27] LABS: CALCIUM 7.8 mg/dL (8.5-10.1); CARBON DIOXIDE 29.5 mmol/L (21-32); CHLORIDE SERUM 104 mmol/L (98-107); CREATININE SERUM 0.8 mg/dL (0.7-1.3); GFR1 > 60 mL/min; GLUCOSE SERUM 122 mg/dL (74-106); POTASSIUM SERUM 3.1 mmol/L (3.5-5.1); SODIUM SERUM 145 mmol/L (136-145)
[2019-03-06 02:32] LABS: PLATELET COUNT 200 x10^3mcL (130-400)
[2019-03-06 02:33] LABS: ALBUMIN 4.1 g/dL (3.4-5.0); ALKALINE PHOSPHATASE 85 U/L (46-116); ALT/SGPT 23 U/L (16-63); AST/SGOT 25 U/L (15-37); BILIRUBIN TOTAL 0.2 mg/dL (0.20-1.00); LIPASE 488 IU/L (73-393); MAGNESIUM 1.9 mg/dL (1.8-2.4)
[2019-03-06 02:39] LABS: RED CELL DISTRIBUTION WIDTH 25.1 % (11.5-14.5)
[2019-03-06 03:39] LABS: BAND NEUTROPHIL 3 % (0-10); MONOCYTE 11 % (0-7); SEGMENTED NEUTROPHILS 26 % (37-75)
[2019-03-06 03:42] LABS: PLATELET MORPHOLOGY PLATELETS NORMAL; rbc morphology (normal/abnorm) ABNORMAL (NORMAL); target cell (codocyte) 2+
[2019-03-06 05:48] VITALS: BP 135/89
== END 2019-03-06 05:48 | disposition home or self-care (01) ==
LOC: ED 00:30
PROVIDERS: Emergency Medicine
DX: K85.20 Alcohol induced acute pancreatitis without necrosis or infection (principal); I10 Essential (primary) hypertension; F41.9 Anxiety disorder, unspecified; F32.9 Major depressive disorder, single episode, unspecified; Z90.89 Acquired absence of other organs
CPT/HCPCS: G0480; J2270; J7030; Q0162

== ENCOUNTER 2019-03-09 18:21 | Emergency (ER) | payer MEDICAID ==
[~2019-03-09] VITALS: Ht 180.3 cm; Wt 86.6 kg
[2019-03-09 18:22] VITALS: Ht 180.3 cm; Wt 86.6 kg
[2019-03-09 19:46] LABS: PLATELET COUNT 131 x10^3mcL (130-400)
[2019-03-09 20:06] LABS: CALCIUM 9.1 mg/dL (8.5-10.1); CHLORIDE SERUM 95 mmol/L (98-107); CREATININE SERUM 0.7 mg/dL (0.7-1.3); GFR1 > 60 mL/min; GLUCOSE SERUM 102 mg/dL (74-106); POTASSIUM SERUM 3.2 mmol/L (3.5-5.1); SODIUM SERUM 138 mmol/L (136-145)
[2019-03-09 20:08] LABS: BAND NEUTROPHIL 3 % (0-10); METAMYELOCTE 2 % (0-2); MONOCYTE 7 % (0-7); PLATELET MORPHOLOGY LARGE PLATELET SEEN; SEGMENTED NEUTROPHILS 54 % (37-75); rbc morphology (normal/abnorm) ABNORMAL (NORMAL); target cell (codocyte) 1+
[2019-03-09 20:12] LABS: ALBUMIN 4.7 g/dL (3.4-5.0); ALKALINE PHOSPHATASE 78 U/L (46-116); ALT/SGPT 25 U/L (16-63); AST/SGOT 31 U/L (15-37); BILIRUBIN TOTAL 0.7 mg/dL (0.20-1.00); TOTAL PROTEIN, SERUM 8.9 g/dL (6.4-8.2)
[2019-03-09 22:37] VITALS: BP 142/93
== END 2019-03-09 22:38 | disposition home or self-care (01) ==
LOC: ED 18:21
PROVIDERS: Emergency Medicine
DX: R07.89 Other chest pain (principal); F10.239 Alcohol dependence with withdrawal, unspecified; I10 Essential (primary) hypertension; F41.9 Anxiety disorder, unspecified; F32.9 Major depressive disorder, single episode, unspecified; I45.6 Pre-excitation syndrome; Z90.89 Acquired absence of other organs
CPT/HCPCS: J2060; Q0092

== ENCOUNTER 2019-04-14 19:36 | Emergency (ER) | payer MEDICAID ==
[~2019-04-14] VITALS: Ht 180.3 cm; Wt 81.2 kg
[2019-04-14 19:45] VITALS: Ht 180.3 cm; Wt 81.2 kg
[2019-04-14 20:59] LABS: PLATELET COUNT 141 x10^3mcL (130-400)
[2019-04-14 21:04] LABS: RED CELL DISTRIBUTION WIDTH 22.3 % (11.5-14.5)
[2019-04-14 21:25] LABS: BAND NEUTROPHIL 2 % (0-10); MONOCYTE 2 % (0-7); SEGMENTED NEUTROPHILS 79 % (37-75)
[2019-04-14 21:26] LABS: PLATELET MORPHOLOGY PLATELETS NORMAL; rbc morphology (normal/abnorm) ABNORMAL (NORMAL)
[2019-04-14 21:36] LABS: ALBUMIN 4.5 g/dL (3.4-5.0); ALKALINE PHOSPHATASE 83 U/L (46-116); ALT/SGPT 138 U/L (16-63); AST/SGOT 100 U/L (15-37); BILIRUBIN TOTAL 0.39 mg/dL (0.20-1.00); CALCIUM 9.3 mg/dL (8.5-10.1); CARBON DIOXIDE 30.7 mmol/L (21-32); CHLORIDE SERUM 96 mmol/L (98-107); CREATININE SERUM 0.8 mg/dL (0.7-1.3); GFR1 > 60 mL/min; GLUCOSE SERUM 127 mg/dL (74-106); SODIUM SERUM 142 mmol/L (136-145)
[2019-04-14 21:39] LABS: TOTAL PROTEIN, SERUM 8.7 g/dL (6.4-8.2)
[2019-04-14 23:10] VITALS: BP 143/82
== END 2019-04-14 23:18 | disposition home or self-care (01) ==
LOC: ED 19:36
PROVIDERS: Emergency Medicine
DX: F10.129 Alcohol abuse with intoxication, unspecified (principal); E87.6 Hypokalemia; R10.10 Upper abdominal pain, unspecified; I10 Essential (primary) hypertension; F41.9 Anxiety disorder, unspecified; F32.9 Major depressive disorder, single episode, unspecified; I45.6 Pre-excitation syndrome; Z90.89 Acquired absence of other organs
CPT/HCPCS: G0480; J1885; J3480

== ENCOUNTER 2019-05-09 17:45 | Emergency (ER) | payer MEDICAID ==
[~2019-05-09] VITALS: Ht 180.3 cm; Wt 83.5 kg
[2019-05-09 17:52] VITALS: Ht 180.3 cm; Wt 83.5 kg
[2019-05-09 18:42] LABS: CALCIUM 8.8 mg/dL (8.5-10.1); CARBON DIOXIDE 26.1 mmol/L (21-32); CHLORIDE SERUM 101 mmol/L (98-107); CREATININE SERUM 0.9 mg/dL (0.7-1.3); GFR1 > 60 mL/min; GLUCOSE SERUM 183 mg/dL (74-106); POTASSIUM SERUM 3.6 mmol/L (3.5-5.1); SODIUM SERUM 142 mmol/L (136-145)
[2019-05-09 18:45] LABS: PLATELET COUNT 83 x10^3mcL (130-400); RED CELL DISTRIBUTION WIDTH 23.9 % (11.5-14.5)
[2019-05-09 18:56] LABS: ALBUMIN 4.2 g/dL (3.4-5.0); ALKALINE PHOSPHATASE 81 U/L (46-116); ALT/SGPT 97 U/L (16-63); AST/SGOT 126 U/L (15-37); BILIRUBIN TOTAL 0.4 mg/dL (0.20-1.00); TOTAL PROTEIN, SERUM 7.9 g/dL (6.4-8.2)
[2019-05-09 19:44] LABS: BAND NEUTROPHIL 2 % (0-10); BASOPHIL 0 % (0-2); MONOCYTE 4 % (0-7); SEGMENTED NEUTROPHILS 67 % (37-75); rbc morphology (normal/abnorm) ABNORMAL (NORMAL)
[2019-05-09 19:45] LABS: PLATELET MORPHOLOGY PLATELETS DECREASED
[2019-05-09 20:18] LABS: AMPHETAMINE QUAL UR NONE DETECTED (See below)
[2019-05-09 20:40] VITALS: BP 133/94
== END 2019-05-09 20:40 | disposition home or self-care (01) ==
LOC: ED 17:45
PROVIDERS: Emergency Medicine
DX: R07.89 Other chest pain (principal); F10.20 Alcohol dependence, uncomplicated; R10.31 Right lower quadrant pain; I10 Essential (primary) hypertension; F41.9 Anxiety disorder, unspecified; F32.9 Major depressive disorder, single episode, unspecified; Z98.890 Other specified postprocedural states; Z90.89 Acquired absence of other organs
CPT/HCPCS: 36415; G0480

== ENCOUNTER 2019-06-04 00:49 | Inpatient (IN) | payer MEDICAID ==
[~2019-06-04] VITALS: Ht 180.3 cm; Wt 82.4 kg
--- NOTE | 2019-06-04 01:30 | NUR ---
PATIENT AAOX4 PRESENTS TO THE ED WITH C/O ABD PAIN AND ALCOHOL WITHDRAWL. PT HAS LONG HX OF ALCOHOL USE- PT IS WAITING FOR A DETOX BED IN ORDER TO GO INTO REHAB. BREATHING EVEN AND UNLABORED. NO OTHER SS OF DISTRESS NOTED.
--- NOTE | 2019-06-04 02:21 | NUR ---
MEDICATED PER MD ORDERS
--- NOTE | 2019-06-04 02:54 | NUR ---
REQUESTED PATIENT PROVIDE URINE SAMPLE-- PT STS "I WILL TRY". WILL CONTINUE TO MONITOR.
[2019-06-04 03:17] LABS: PLATELET COUNT 63 x10^3mcL (130-400); RED CELL DISTRIBUTION WIDTH 25.7 % (11.5-14.5)
[2019-06-04 03:32] LABS: CALCIUM 7.9 mg/dL (8.5-10.1); CARBON DIOXIDE 28.4 mmol/L (21-32); CHLORIDE SERUM 98 mmol/L (98-107); CREATININE SERUM 0.6 mg/dL (0.7-1.3); GFR1 > 60 mL/min; GLUCOSE SERUM 85 mg/dL (74-106); POTASSIUM SERUM 3.2 mmol/L (3.5-5.1); SODIUM SERUM 142 mmol/L (136-145)
[2019-06-04 03:34] LABS: BAND NEUTROPHIL 1 % (0-10); MONOCYTE 15 % (0-7); SEGMENTED NEUTROPHILS 36 % (37-75)
[2019-06-04 03:39] LABS: ALBUMIN 4.1 g/dL (3.4-5.0); ALKALINE PHOSPHATASE 80 U/L (46-116); ALT/SGPT 96 U/L (16-63); AST/SGOT 163 U/L (15-37); BILIRUBIN TOTAL 0.75 mg/dL (0.20-1.00); LIPASE 1319 IU/L (73-393); MAGNESIUM 1.3 mg/dL (1.8-2.4); TOTAL PROTEIN, SERUM 7.8 g/dL (6.4-8.2); rbc morphology (normal/abnorm) ABNORMAL (NORMAL); target cell (codocyte) 2+
[2019-06-04 03:40] LABS: PLATELET MORPHOLOGY PLATELETS DECREASED
--- NOTE | 2019-06-04 03:58 | NUR ---
PATIENT SLEEPING IN A POSITION OF COMFORT ON GURNEY- NO SS OF DISTRESS NOTED. WILL CONTINUE TO MONITOR.
--- NOTE | 2019-06-04 06:16 | NUR ---
MEDICATED PER MD ORDERS
[2019-06-04] MEDS ORDERED: AMBIEN10 MG PO (06:38)
--- NOTE | 2019-06-04 06:50 | NUR ---
PROVIDED REPORT TO [facility] TELE- FOR CONTINUED CARE OF PATIENT.
[2019-06-04 07:05] VITALS: BP 141/100
--- NOTE | 2019-06-04 07:05 | NUR ---
PT BROUGHT FROM ED VIA GUERNEY. AMBULATORY WITH FULL ROM, GAIT SLOW/STEADY. COMPLAINT OF PAIN AT ABDOMEN, RATES 6/10. RUQ/MID ABDOMINAL.DESCRIBES ACHING. CONTINUOUS. WITH MILD INTERMITTENT NAUSEA. NO SOB ON ROOM AIR. VS STABLE. NO CHEST PAIN. NSR ON TELE 1, HR 90. IV WNL TO RAC, PATENT AND FLUSHES WELL. SALINE LOCKED. ORIENTED TO SURROUNDINGS. SIDE RAILS UP X2. FALL PRECAUTIOTIONS IN PLACE. SEIZURE PREC IN PLACE. BED IN LOW POSITION. CALL LIGHT WITHIN REACH. WILL CONTINUE TO MONITOR. VS STABLE.
[2019-06-04 07:24] LABS: CHOLESTEROL/HDL RATIO 2.7
[2019-06-04 08:22] LABS: microscopic required? YES; urine erythrocyte NEGATIVE (NEGATIVE)
[2019-06-04 10:21] VITALS: BP 141/100
[2019-06-04 11:00] LABS: AMPHETAMINE QUAL UR NONE DETECTED (See below)
--- NOTE | 2019-06-04 11:22 | NUR ---
PT COMPLAINT OF CONTINUOUS EPIGASTRIC/RUQ ABDOMINAL PAIN, ACHING, GIVEN PO PAIN MED, SEE MAR. NO N/V. NO FEVER. NO CHILLS. NO S/S OF ACUTE DISTRESS. IV INFILTRATED TO RAC, MILD SWELLING NOTED TO SITE. INSTRUCTED TO KEEP RUE ELEVATED. VERBALIZED UNDERSTANDING. IV REMOVED, CATHETER IN TACT. PRESSURE APPLIED. IV INSERTED TO LH, 22 GAUGE. PATENT AND FLUSHES WELL. IV FLUIDS FLOWING. NO CHEST PAIN. SEIZURE PREC IN PLACE. SIDE RAILS UP X2. VOIDS FREELY WITH URINAL. BED IN LOW POSITION. CALL LIGHT WITHIN REACH. AA/OX4. WILL CONTINUE TO MONITOR.
[2019-06-04 11:54] VITALS: BP 113/76; BP 134/97
--- NOTE | 2019-06-04 15:22 | NUR ---
PT COMPLAINT OF CHEST "TIGHTNESS" NON-RADIATING, REPORTS FEELING ANXIOUS. GIVEN IV MEDICATION FOR ANXIETY/AGITATION. VS STABLE: BP 142/100 (114), HR 85, RR 18, TEMP 99.0F, RR 18. NSR ON TELE 1. DR. REESE AWARE. NO FURTHER ORDERS AT THIS TIME. WILL CONTINUE TO MONITOR.
[2019-06-04 16:23] VITALS: BP 141/96
--- NOTE | 2019-06-04 18:27 | NUR ---
PT LAYING IN BED. NAUSEOUS/VOMITING. GIVEN IV MEDICATION FOR NAUSEA, OUTPUT 200CC GREEN BILE NOTED. TREMORS NOTED. COMPLAINT OF SAMPSON, RATES 6/10 ACUTE, ACHING. GIVEN TYLENOL. SEE MAR. AA/OX4. SEIZURE PREC IN PLACE. BED IN LOW POSITION. CALL LIGHT WITHIN REACH. WILL ENDORSE TO ONCOMING SHIFT.
--- NOTE | 2019-06-04 20:00 | NUR ---
RECEIVED PT IN BED, ALERT AND ORIENTED, APPEARS ANXIOUS , REQUESTING ATIVAN AND ALSO PAIN MED , COMPLAINING OF ABD. PAIN,PT STATES PAIN LEVEL AT 7/10. WILL MEDICATE ORDERED. RESP. EVEN AND UNLABORED. ON ROOM AIR, NO ACUTE DISTRESS NOTED. SR ON THE MONITOR,DENIES CP. AFEBRILE AND VITAL SIGNS STABLE. IVF, NS AT 100ML/HR, INTACT AND INFUSING VIA LH, SITE CLEAR.AMBULATORY. NPO EXCEPT MEDS ORDERED. CALL LIGHT WITHIN REACH. WILL CONTINUE TO MONITOR.
[2019-06-04 20:28] VITALS: BP 144/92
--- NOTE | 2019-06-04 21:00 | NUR ---
MEDICATED FOR ABD. PAIN AND ANXIETY ORDERED. WILL CONTINUE TO MONITOR.
--- NOTE | 2019-06-05 01:20 | NUR ---
COMPLAINING OF ANXIETY, REQUESTING ATIVAN , MEDICATED PER ORDER. WILL CONTINUE TO MONITOR.
--- NOTE | 2019-06-05 03:29 | NUR ---
NO COMPLAINTS NOTED AT THIS TIME. RESP. EVEN AND UNLABORED.NO ACUTE DISTRESS NOTED. EYES CLOSED , APPEARS ASLEEP,EASILY AROUSABLE. WILL CONTINUE TO MONITOR,
[2019-06-05 05:23] VITALS: BP 148/96
--- NOTE | 2019-06-05 06:15 | NUR ---
AFEBRILE AND VITAL SIGNS STABLE. RESP. EVEN AND UNLABORED. ON ROOM AIR , NO ACUTE DISTRESS NOTED. NO SEIZURE ACTIVITY NOTED. DUE MEDS GIVEN ORDERED , IVÁN. WELL. IVF INTACT AND INFUSING WELL, SITE CLEAR. KEPT COMFORTABLE. WILL CONTINUE TO MONITOR.
[2019-06-05 06:45] LABS: CALCIUM 8.8 mg/dL (8.5-10.1); CARBON DIOXIDE 21.7 mmol/L (21-32); CHLORIDE SERUM 96 mmol/L (98-107); CREATININE SERUM 0.7 mg/dL (0.7-1.3); GFR1 > 60 mL/min; GLUCOSE SERUM 69 mg/dL (74-106); MAGNESIUM 1.5 mg/dL (1.8-2.4); POTASSIUM SERUM 3.4 mmol/L (3.5-5.1); SODIUM SERUM 138 mmol/L (136-145)
--- NOTE | 2019-06-05 07:25 | NUR ---
RECEIVE PT'S REPORT FROM LEAVING NURSE. PT REST ON BED, DENIED PAIN AT THIS TIME. PT BREATHING ON RA, EVEN, UNLABORED. MILD TREMOR KANIKA HANDS NOTED. IV SITE PATENT, INTACT. IVF INFUSING WELL.
--- NOTE | 2019-06-05 07:55 | NUR ---
PT'S MORNING LAB GLUCOSE 69. RADOMLY CHECKED PT BLOOD SUGAR 72. PT IS NPO, IVF NS. MADE DR. MOLINA AWARE.
[2019-06-05 08:53] LABS: RED CELL DISTRIBUTION WIDTH 25.1 % (11.5-14.5)
[2019-06-05 09:34] VITALS: BP 145/111
[2019-06-05 11:31] LABS: BAND NEUTROPHIL 4 % (0-10); SEGMENTED NEUTROPHILS 72 % (37-75)
[2019-06-05 11:32] LABS: BASOPHIL 0 % (0-2); MONOCYTE 8 % (0-7); PLATELET MORPHOLOGY PLATELETS DECREASED; rbc morphology (normal/abnorm) ABNORMAL (NORMAL)
--- NOTE | 2019-06-05 11:35 | NUR ---
PT COMPLAIN OF ABD PAIN, NORCO GIVEN PER PRN ORDER.
[2019-06-05 11:41] LABS: PLATELET COUNT 43 x10^3mcL (130-400)
[2019-06-05 13:22] VITALS: BP 147/98
[2019-06-05 16:53] VITALS: BP 132/98
--- NOTE | 2019-06-05 17:05 | NUR ---
PT COMPLAIN OF ANXIETY. ATIVAN GIVEN PER PRN ORDER.
--- NOTE | 2019-06-05 19:11 | NUR ---
PT'S REPORT GIVEN TO RECEIVING NURSE. PT REST ON BED, COMPLAIN OF ABD PAIN. PT CARE ENDORSED, QUESTIONS AND CONCERNS ADRESSED.
--- NOTE | 2019-06-05 19:30 | NUR ---
PT RECIEVED FROM DAY NURSE. PT RESTING IN BED. NO PAIN AT THIS TIME. A/O X4, CALM AND COOPERATIVE. BREATHING EVEN AND UNLABORED ON ROOM AIR. TELE 1, SR. NO COMPLAINTS OF CHEST PAIN, N/V, DIZZINESS, OR PALPATATIONS. PALPABLE PULSES, NO EDEMA NOTED. ABD SOFT AND ROUND, NO TENDERNESS TO PALPATION. LH IV, CDI AND INFUSING. BED AT LOWEST POSITION, CALL LIGHT WITHIN REACH. WILL CONTINUE TO MONITOR.
[2019-06-05 21:06] VITALS: BP 138/99
--- NOTE | 2019-06-05 21:10 | NUR ---
PT COMPLAINING OF 8/10 ABD PAIN. MEDICATED PT WITH NORCO PRN. WILL MONITOR.
--- NOTE | 2019-06-06 00:19 | NUR ---
PT RESTING IN BED COMFORTABLY. NO S/S OF PAIN OR DISTRESS NOTED. BREATHING EVEN AND UNLABORED ON RA. BED AT LOWEST POSITION. CALL LIGHT WITHIN REACH. WILL CONTINUE TO MONITOR.
--- NOTE | 2019-06-06 01:12 | NUR ---
PT COMPLAINING OF AGITATION. MEDICATED WITH PRN ATIVAN. WILL MONITOR.
--- NOTE | 2019-06-06 03:00 | NUR ---
PT COMPLAINING OF HALLUCINATIONS. DR. VILLATORO MADE AWARE. DR STATED "WILL ORDER A ONE TIME ATIVAN". WAITING FOR ORDERS.
--- NOTE | 2019-06-06 03:54 | NUR ---
GAVE PT ONE TIME ATIVAN. WILL MONITOR.
[2019-06-06 05:31] VITALS: BP 131/96
--- NOTE | 2019-06-06 05:55 | NUR ---
PT RESTING COMFORTABLY IN BED. NO S/S OF PAIN AT THIS TIME. BREATHING EVEN AND UNLABORED ON RA. TELE 1, SR. DENIES CHEST PAIN, DIZZINESS, N/V, OR PALPATATIONS. NO SIGNIFICANT CHANGES THIS SHIFT. BED AT LOWEST POSITION. CALL LIGHT WITHIN REACH. WILL CONTINUE TO MONITOR.
[2019-06-06 07:05] LABS: CALCIUM 9.2 mg/dL (8.5-10.1); CARBON DIOXIDE 25.5 mmol/L (21-32); CHLORIDE SERUM 95 mmol/L (98-107); CREATININE SERUM 0.6 mg/dL (0.7-1.3); GFR1 > 60 mL/min; GLUCOSE SERUM 81 mg/dL (74-106); LIPASE 1225 IU/L (73-393); MAGNESIUM 1.4 mg/dL (1.8-2.4); PHOSPHOROUS 2.4 mg/dL (2.5-4.9); POTASSIUM SERUM 3.5 mmol/L (3.5-5.1); SODIUM SERUM 133 mmol/L (136-145)
--- NOTE | 2019-06-06 07:30 | NUR ---
RECEIVED PT IN BED A/A/OX3 DENIES SAMPSON. NOTED WITH PERIORBITAL REDNESS, NO DRAINAGE. RESP EVEN AND UNLABORED WITH CLEAR BS BILAT. DENIES ANY SOB/CP/PRESSURE AT THIS TIME. NO EDEMA NOTED IVF TO LH. ABD SOFT, NONTENDER WITH ACTIVE BS X4. NPO EXCEPT MEDS AT THIS TIME. VOIDING FREELY. GEN WEAKNESS NOTED WITH TREMORS TO HAND ON ETOH PROTOCOL. WITH SYMPTOMS OF WITHDRAWAL WITH REPORTS OF HALLUCINATIONS OVER NIGHT. NONE REPORTED AT THIS TIME BY PT. CALL LIGHT IN REACH NEEDS ATTENDED TO. FREQUENT VISUAL SAFETY CHECKS FOR SAFETY.
--- NOTE | 2019-06-06 07:45 | NUR ---
PT MEDICATED WITH IVP ATIVAN 1MG PER EMAR FOR AGITATION AND TREMORS. WITHDRAWAL SYMPTOMS. BUILDER OPERATOR MANCIA AT BEDSIDE AT THIS TIME FOR AM ROUNDS. CALL LIGHT IN REACH NEEDS ATTENDED TO.
[2019-06-06 08:02] LABS: BASOPHIL % 0.7 % (0-2)
[2019-06-06 08:14] VITALS: Ht 180.3 cm; Wt 82.4 kg
[2019-06-06 08:40] LABS: PLATELET COUNT 50 x10^3mcL (130-400)
[2019-06-06 09:11] VITALS: BP 137/103
[2019-06-06 10:01] LABS: ovalocyte/elliptocyte 1+; rbc morphology (normal/abnorm) ABNORMAL (NORMAL); tear drop cell (dacryocyte) 1+
[2019-06-06 10:08] LABS: target cell (codocyte) 1+
--- NOTE | 2019-06-06 10:54 | NUR ---
PT RESTLESS, TREMORS HALLUCINATIONS AND AGITATED MEDICATED WITH ATIVAN 1MG PO PER EMAR. CONT TO MONITOR.
--- NOTE | 2019-06-06 12:06 | NUR ---
PRN ATIVAN 1 MG IVP GIVEN PT CALLING SAYING THERE ARE WOMAN IN HIS ROOM MAKING FUN OF HIM. PT CONT WITH VISUAL HALLUCINATIONS. HEALTH PROGRAM MANAGER MANCIA MADE AWARE PT MAY NEED PRN ATIVAN CHANGED SINCE CURRENTLY AT [facility]. PER HEALTH PROGRAM MANAGER GIVE DOSE NOW THAT DUE AND NOTIFY HER IF PT REQUIRES ANOTHER SOON. WILL CONT TO MONITOR. FREQUENT VISUAL CHECKS FOR SAFETY.
[2019-06-06 12:46] VITALS: BP 137/95
--- NOTE | 2019-06-06 17:11 | NUR ---
PT RESTLESS AND AGITATED , WITH VISUAL HALLUCINATIONS. WALKED OUT OF ROOM DISORIENTED. ASSISTED BACK TO BED AND MEDICATED WITH PRN ATIVAN 1MG IVP PER EMAR. CALL LIGHT INREACH, WITH BED ALARM IN PLACE.
[2019-06-06 17:44] VITALS: BP 142/105
--- NOTE | 2019-06-06 18:18 | NUR ---
PT RESTING AT THIS TIME, CALM, HAS BEEN EXPERIENCING VISUAL HALLUCINATIONS MOST OF THE SHIFT, WHEN REORIENTED PT ACKNOWLEDGES HE IS HAVING HALLUCINATIONS. PT NOT COMBATIVE OR HAVING SEVERE AGITATION. PT USES CALL LIGHT OR CALL STATIONS WHEN NEEDED. FREQUENT VISUAL CHECKS FOR SAFETY AND BED ALARM IN PLACE. CALL LIGHT IN REACH NEEDS ATTENDED TO.
--- NOTE | 2019-06-06 19:25 | NUR ---
REPORT TAKEN FROM DAY SHIFT NURSE AT THE BEDSIDE, PT IS AWAKE AND ALERT, BUT HAVING HALLUCINATIONS AT THIS TIME, ALSO FEARS HIS LIFE IS IN DANGER. DENIED PAIN AND IS LAYING IN BED AT THIS TIME, WILL CONTINUE TO MONITOR. NO IV ACCESS AT THIS TIME, THE PT REMOVED IT.
--- NOTE | 2019-06-06 23:24 | NUR ---
PT REPORTS THAT HE WANTS TO GO HOME AND WANTS TO SIGN AMA, WILL PAGE THE DOCTOR, PT VERABLIZED THAT HE WILL CALL A CAB TO GET HOME.
--- NOTE | 2019-06-06 23:36 | NUR ---
PT SPOKE TO THE DOCTOR AT THE BEDSIDE AND DECIDED TO STAY IN THE HOSPITAL.
--- NOTE | 2019-06-07 00:20 | NUR ---
LATE ENRTY: 1000- PT REFUSED TO WEAR HEART MONITOR. TELE # 1 SITTING AT THE BEDSIDE. PT ENCOURAGED TO WEAR MONITOR WHILE SLEEPING, BUT HE REFUSED.
--- NOTE | 2019-06-07 04:36 | NUR ---
PT REMOVED IV BY MISTAKE WHILE SLEEPING. PT STILL SLEEP AT THIS TIME, WILL ALLOW PT TO REST AND ATTEMPT TO PLACE IV WHEN HE WAKES.
[2019-06-07 06:16] VITALS: BP 134/92
--- NOTE | 2019-06-07 06:50 | NUR ---
PT AGGITATED, FEARFUL, HAVING HALLUCINATIONS, AND CONFUSED DURING SHIFT. RESTED FOR 5 HOURS DURING THE NIGHT, REFUSED MEDICATION, BUT TOOK ATIVAN AND NORCO WELL AMBIEN. PT REMOVED IV DURING SLEEP BY MISTAKE, I WAS UNABLE TO PLACE ANOTHER. PT NEEDS CONSTANT RE-ORIENTATION WHILE AWAKE. REFUSED TELE MONITOR, TELE # 1 RETURNED TO [place] STATION. WILL REPORT TO [facility] SHIFT NURSE AND ENDORSE CARE.
[2019-06-07 06:54] LABS: CALCIUM 9.7 mg/dL (8.5-10.1); CARBON DIOXIDE 24.5 mmol/L (21-32); CHLORIDE SERUM 98 mmol/L (98-107); CREATININE SERUM 0.7 mg/dL (0.7-1.3); GFR1 > 60 mL/min; GLUCOSE SERUM 70 mg/dL (74-106); MAGNESIUM 1.8 mg/dL (1.8-2.4); POTASSIUM SERUM 3.4 mmol/L (3.5-5.1); SODIUM SERUM 138 mmol/L (136-145)
--- NOTE | 2019-06-07 07:05 | NUR ---
RECEIVED PT FROM [facility]. PT RESTING IN BED WITH BOTH EYES CLOSED. NO S/S OF ACUTE DISTRESS. NO S/S OF PAIN. NO SOB ON ROOM AIR. NO IV ACCESS AT THIS TIME. PT REFUSES SEIZURE PADS AND REFUSES ECONOMIC RESEARCH ASSISTANT. NO CHEST PAIN. NO TREMORS NOTED AT THIS TIME. SKIN WARM, DRY, INTACT. NO N/V. BED IN LOW POSITION. CALL LIGHT WITHIN REACH. SIDE RAILS UP X2. WILL CONTINUE TO MONITOR.
[2019-06-07 07:56] LABS: PLATELET COUNT 79 x10^3mcL (130-400); RED CELL DISTRIBUTION WIDTH 25.3 % (11.5-14.5)
[2019-06-07 09:10] VITALS: BP 121/89
[2019-06-07 09:58] LABS: BAND NEUTROPHIL 0 % (0-10); BASOPHIL 0 % (0-2); MONOCYTE 11 % (0-7); SEGMENTED NEUTROPHILS 65 % (37-75); rbc morphology (normal/abnorm) ABNORMAL (NORMAL); target cell (codocyte) 1+
[2019-06-07 10:00] LABS: ovalocyte/elliptocyte 1+
--- NOTE | 2019-06-07 11:01 | NUR ---
NSR ON TELE 1. NO CHEST PAIN.
[2019-06-07 12:58] VITALS: BP 113/82
--- NOTE | 2019-06-07 14:00 | NUR ---
PT ANXIOUS/AGITATED. MEDICATION GIVEN, SEE JAN. AA/OX4. COMPLAINT OF MILD ABD. PAIN. CONTINUOUS. DECLINED TO PAIN MEDICATION AT THIS TIME. NO N/V. NO SOB ON ROOM AIR. NO CHEST PAIN. MILD TREMORS NOTED. IV WNL TO LW, PATENT AND FLUSHES WELL. IV FLUIDS FLOWING. BED IN LOW POSITION. CALL LIGHT WITHIN REACH. WILL CONTINUE TO MONITOR.
--- NOTE | 2019-06-07 15:15 | NUR ---
PT RESTING IN BED WITH BOTH EYES CLOSED. NO S/S OF ACUTE DISTRESS. NO S/S OF PAIN. NO SOB ON ROOM AIR. NO N/V. NO TREMORS AT THIS TIME. NO CHEST PAIN. CALM/COOPERATIVE. BED IN LOW POSITION. CALL LIGHT WITHIN REACH. IV WNL TO LW, IV FLUIDS FLOWING. WILL CONTINUE TO MONITOR.
[2019-06-07 16:08] VITALS: BP 117/85
--- NOTE | 2019-06-07 18:17 | NUR ---
PT RESTING IN BED WITH BOTH EYES CLOSED. NO S/S OF ACUTE DISTRESS. NO COMPLAINT OF PAIN. NO SOB ON ROOM AIR. NO CHEST PAIN. IV WNL TO LW, PATENT AND FLUSHES WELL. SALINE LOCKED. CALM AT THIS TIME. REPOSITIONS INDEPENDENTLY. BED IN LOW POSITION. CALL LIGHT WITHIN REACH. WILL ENDORSE TO ONCOMING SHIFT.
--- NOTE | 2019-06-07 19:25 | NUR ---
CARE ASSUMED FROM OUTGOING RN. PT ASLEEP COMFORTABLY IN BED. NO ACUTE DISTRESS NOTED. EVEN AND UNLABORED RESPIRTAIONS ON RA. ON TELE# 1 READING SR [address] SEGMENT. IV PATENT AND INTACT RUNNING FLUIDS PER EMAR. BED IN LOWEST POSITIONS. PER DAY SHIFT RN, PT REFUSED SEIZURE PRECAUTIONS PADS. SIDE RAILS UPX2. CALL LIGHT WITHIN REACH. WILL CONTINUE TO MONITOR.
[2019-06-07 20:30] VITALS: BP 105/75
--- NOTE | 2019-06-08 00:13 | NUR ---
PT C/O INSOMNIA. MEDICATED PER EMAR. MEDICATION EFFECTIVE. PT ASLEEP COMFORTABLY IN BED. NO ACUTE DISTRESS NOTED ON RA. EVEN AND UNLABORED RESPIRATIONS ON RA. ON TELE #1 READING SR [address] SEGMENT. IV PATENT AND INTACT RUNNING FLUIDS PER EMAR. BED IN LOWEST POSITION. SIDE RAILS UPX2. CALL LIGHT WITHIN REACH. WILL CONTINUE TO MONITOR.
[2019-06-08 05:07] VITALS: BP 117/87
[2019-06-08 06:49] LABS: PLATELET COUNT 136 x10^3mcL (130-400)
--- NOTE | 2019-06-08 06:50 | NUR ---
PT SLEPT IN INTERVALS THROUGHOUT THE SHIFT. C/O ABD PAIN MEDICATED PER EMAR. PAIN MEDICATION NOT EFFECTIVE. MADE AWARE. EVEN AND UNLABORED RESPIRATIONS ON RA. ON TELE# 1 READING SR 90'S WITH SLIGHTLY DEPRESSED ST SEGMENT. ALL NEEDS TENDED TO AND MET. ALL SCHEDULED MEDICATIONS GIVEN. IV PATENT AND INTACT RUNNING FLUIDS PER EMAR. BED IN LOWEST POSITION. SIDE RAILS UPX2. CALL LIGHT WITHIN REACH. WILL ENDORSE TO ONCOMING SHIFT.
[2019-06-08 06:53] LABS: CALCIUM 9.6 mg/dL (8.5-10.1); CHLORIDE SERUM 103 mmol/L (98-107); CREATININE SERUM 0.7 mg/dL (0.7-1.3); GFR1 > 60 mL/min; GLUCOSE SERUM 87 mg/dL (74-106); POTASSIUM SERUM 3.9 mmol/L (3.5-5.1); SODIUM SERUM 140 mmol/L (136-145)
[2019-06-08 07:13] LABS: RED CELL DISTRIBUTION WIDTH 25.8 % (11.5-14.5)
--- NOTE | 2019-06-08 07:15 | NUR ---
RECEIVED PT FROM JOELLEN RN. PT AA/OX4. NO S/S OF ACUTE DISTRESS. COMPLAINT OF FEELING ANXIOUS/AGITATED. GIVEN MEDICATION BY JOELLEN RN. SEE MAR. NO SOB ON ROOM AIR. NO CHEST PAIN. IV WNL TO LW, IV FLUIDS FLOWING. BED IN LOW POSITION. CALL LIGHT WITHIN REACH. WILL CONTINUE TO MONITOR.
[2019-06-08 08:23] VITALS: BP 125/93
[2019-06-08 13:24] VITALS: BP 130/95
[2019-06-08 13:30] LABS: PATH REVIEW for HEMA NO
[2019-06-08 13:39] LABS: BAND NEUTROPHIL 3 % (0-10); MONOCYTE 9 % (0-7); SEGMENTED NEUTROPHILS 69 % (37-75)
[2019-06-08 13:40] LABS: rbc morphology (normal/abnorm) ABNORMAL (NORMAL)
[2019-06-08 13:41] LABS: PLATELET MORPHOLOGY LARGE PLATELET SEEN; schistocyte (helmet cell) 1+; target cell (codocyte) 2+
--- NOTE | 2019-06-08 14:56 | NUR ---
PT COMPLAINT OF ANXIETY. GIVEN MEDICATION, SEE MAR. TOLERATING REGULAR DIET WELL. NO N/V. DENIES ABD. PAIN. COOPERATIVE AT THIS TIME. IV WNL TO RFA, 24 GAUGE. PATENT AND FLUSHES WELL. IV FLUIDS FLOWING. BED IN LOW POSITION. AA/OX4. CALL LIGHT WITHIN REACH. WILL CONTINUE TO MONITOR.
[2019-06-08 16:21] VITALS: BP 110/86
--- NOTE | 2019-06-08 18:45 | NUR ---
PT COMPLAINT OF FEELING ANXIOUS. GIVEN IV MEDICATION. SEE MAR. NO TREMORS NOTED AT THIS TIME. AA/OX4. NO COMPLAINT OF PAIN. NO SOB ON ROOM AIR. NO CHEST PAIN. NO ABD. PAIN. TOLERATING REGULAR DIET WELL. NO N/V. AMBULATORY WITH FULL ROM, GAIT STEADY. INDEPENDENTLY. IV WNL TO RFA, NO REDNESS, NO SWELLING, NO INFILTRATION. FLUSHES WELL. BED IN LOW POSITION. CALL LIGHT WITHIN REACH. WILL ENDORSE TO ONCOMING SHIFT.
--- NOTE | 2019-06-08 19:53 | NUR ---
RECEIVED PT IN BED, RESTING , ALERT AND ORIENTED. ABLE TO VERBALIZE NEEDS. RESP. EVEN AND UNLABORED. ON ROOM AIR, NO ACUTE DISTRESS NOTED. AFEBRILE AND VITAL SIGNS STABLE.SR/ST ON THE MONITOR, DENIES CP OR ANY DISCOMFORT AT THIS TIME. IVF, D51/2NS AT 75ML/HR, INTACT AND INFUSING VIA RFA, SITE CLEAR. NO COMPLAINTS NOTED AT THIS TIME. ASSISTED WITH HS CARE. CALL LIGHT WITHIN REACH. WILL CONTINUE TO MONITOR.
[2019-06-08 21:18] VITALS: BP 114/77
--- NOTE | 2019-06-08 23:57 | NUR ---
NO COMPLAINTS NOTED AT THIS TIME,RESTING QUIETLY IN BED, WITH EYES CLOSED, APPEARS ASLEEP, EASILY AROUSABLE.CALL LIGHT WITHIN REACH. WILL CONTINUE TO MONITOR.
--- NOTE | 2019-06-09 05:05 | NUR ---
COMPLAINED OF ANXIETY,REQUESTING ATIVAN, MEDICATED ORDERED. WILL CONTINUE TO MONITOR.
[2019-06-09 06:06] VITALS: BP 130/90
--- NOTE | 2019-06-09 06:24 | NUR ---
NO COMPLAINTS NOTED AT THIS TIME. DUE MEDS GIVEN ORDERED, IVÁN. WELL. AFEBRILE AND VITAL SIGNS STABLE. RESP. EVEN AND UNLABORED. NO ACUTE DISTRESS NOTED. NO SEIZURE ACTIVITY NOTED . IVF INTACT AND INFUSING WELL, SITE CLEAR. VOIDING FREELY. KEPT COMFORTABLE. WILL ENDORSE TO INCOMING NURSE.
[2019-06-09 06:53] LABS: CALCIUM 8.2 mg/dL (8.5-10.1); CARBON DIOXIDE 25.1 mmol/L (21-32); CHLORIDE SERUM 106 mmol/L (98-107); CREATININE SERUM 0.6 mg/dL (0.7-1.3); GFR1 > 60 mL/min; GLUCOSE SERUM 96 mg/dL (74-106); POTASSIUM SERUM 3.5 mmol/L (3.5-5.1); SODIUM SERUM 141 mmol/L (136-145)
[2019-06-09 07:10] VITALS: BP 132/96
--- NOTE | 2019-06-09 07:13 | NUR ---
ASSUMED CARE OF PATIENT. SEEN ALERT AND AWAKE THIS MORNING. NO COMPLAINTS OF PAIN OR DISCOMFORT. NO APPARENT DISTRESS NOTED. IV ON RFA PATENT AND INFSUGIN D5 1/2NS AT 75 ML/HR. WILL CONTINUE TO MONITOR.
--- NOTE | 2019-06-09 08:32 | NUR ---
TELE REPORTING HR IN 130'S. PATIENT SEEN HAVING AMBULATED TO BATHROOM. ASYMPTOMATIC.
--- NOTE | 2019-06-09 08:49 | NUR ---
BREA MARRERO PROVIDED FOR ANXIETY.
--- NOTE | 2019-06-09 10:08 | NUR ---
PATIENT SEEN RESTING IN BED COMPLAINING OF 8/10 PAIN ON BLE AND "OVARY PAIN." AWAITING NEXT ADMINISTRATION TIME FOR DILAUDID. PAGED FOR INEFFECTIVE PAIN MANAGEMENT. PATIENT DOES NOT APPEAR TO BE IN ANY DISTRESS AT THIS TIME.
--- NOTE | 2019-06-09 10:13 | NUR ---
PATIENT SEEN RESTING IN BED WITH EQUAL AND UNLABORED RESPIRATIONS. NO APPARENT DISTRESS NOTED. NO NEW ISSUES.
--- NOTE | 2019-06-09 10:59 | NUR ---
TELE BOX REMOVED PER TRANSFER TO [facility] / [facility] ORDERS
[2019-06-09 11:40] VITALS: BP 114/84
--- NOTE | 2019-06-09 13:11 | NUR ---
PATIENT IN ROOM WITH NO COMPLAINTS OF PAIN OR DISCOMFORT. NO WITHRDRAWAL SYMPTOMS NOTED. NO APPARENT DISTRESS NOTED. NO NEW ISSUES.
[2019-06-09 14:05] LABS: PLATELET COUNT 164 x10^3mcL (130-400)
[2019-06-09 14:07] LABS: ATYPICAL LYMPH 0 %; BAND NEUTROPHIL 1 % (0-10); MONOCYTE 4 % (0-7); SEGMENTED NEUTROPHILS 89 % (37-75); rbc morphology (normal/abnorm) ABNORMAL (NORMAL)
--- NOTE | 2019-06-09 15:38 | NUR ---
PATIENT SEEN RESTING IN ROOM WITH NO COMPLAINTS OF PAIN OR DISCOMFORT. NO APPARENT DISTRESS NOTED. NO NEW ISSUES.
--- NOTE | 2019-06-09 16:02 | NUR ---
PATIENT SALINE LOCKED PER IVF D/C ORDERS.
[2019-06-09 16:20] VITALS: BP 128/93
--- NOTE | 2019-06-09 18:45 | NUR ---
PATIENT IN ROOM WITH NO COMPLAINTS OF PAIN OR DISCOMFORT. PRN ATIVAN PROVIDED FOR ANXIETY. NO APPARENT DISTRESS NOTED. IV RFA PATENT AND SALINE LOCKED AT THIS TIME. WILL ENDORSE CARE TO ONCOMING RN.
--- NOTE | 2019-06-09 19:55 | NUR ---
AWAKE ALERT ORIENTED X4, DENIES PAIN NO DISTRESS BREATHING EASY AND SPONT, NO SYMPTOMS OF ALCOHOL WITHDRAWAL, FOLLOWS COMMANDS AMBULANT, IV ACCESS @ RFA PATENT NON INFIL, SHIFT ASSESSMENT DONE, REFUSED SCD'S FOR DVT PROPHYLAXIS, PT ALSO DONT WANT PADS AT THE SIDES OF THE BED FOR SEIZURE PREC, ABLE TO MAKE NEEDS KNOW, STRESSED SAFETY PREC, CONT TO MONITOR.
[2019-06-09 20:19] VITALS: BP 116/83
--- NOTE | 2019-06-10 01:07 | NUR ---
PT AWAKE ASKING FOR SLEEPING PILLS, STATED HE CAN'T SLEEP FOR COUPLE OF NIGHT AMBIEN PO GIVEN PER PRN ORDER, MINIMIZED ROOM STIMULATION, CONT TO MONITOR.
--- NOTE | 2019-06-10 04:38 | NUR ---
ATIVAN 1MG PO GIVEN PER PRN ORDER FOR ANXIETY, WILL MONITOR.
[2019-06-10 05:21] VITALS: BP 125/91
[2019-06-10 06:03] LABS: BASOPHIL % 0.9 % (0-2); PLATELET COUNT 205 x10^3mcL (130-400)
--- NOTE | 2019-06-10 06:09 | NUR ---
SLEPT WELL NO BEHAV ISSUES, NO TREMORS THROUGHOUT THE SHIFT, DUE MEDS GIVEN, LUNG CTA, AMBULATES TO THE BATHROOM STEADY BALANCE, DENIES PAIN, WILL ENDORSE TO INCOMING SHIFT FOR FOLLOW UP CARE.
[2019-06-10 06:26] LABS: CALCIUM 9.1 mg/dL (8.5-10.1); CARBON DIOXIDE 25.9 mmol/L (21-32); CHLORIDE SERUM 106 mmol/L (98-107); CREATININE SERUM 0.8 mg/dL (0.7-1.3); GFR1 > 60 mL/min; GLUCOSE SERUM 104 mg/dL (74-106); MAGNESIUM 1.5 mg/dL (1.8-2.4); POTASSIUM SERUM 3.4 mmol/L (3.5-5.1); SODIUM SERUM 141 mmol/L (136-145)
[2019-06-10 06:55] LABS: RED CELL DISTRIBUTION WIDTH 27.3 % (11.5-14.5)
[2019-06-10 06:56] LABS: rbc morphology (normal/abnorm) ABNORMAL (NORMAL)
--- NOTE | 2019-06-10 08:09 | NUR ---
AT 0730 - RECEIVED PATIENT FROM NIGHT NURSE. AWAKE, ALERT AND ORIENTED TO PERSON, PLACE, TIME AND SITUATION. APPEARS CALM AND PLEASANT. PATIENT SAYS THAT HE THINKS HE WILL BE GOING HOME TODAY. REQUESTED ATIVAN SOON ABLE TO HAVE IT.
[2019-06-10 08:38] VITALS: BP 157/107
[2019-06-10] MEDS ORDERED: ATIVAN2 MG PO (10:23)
[2019-06-10] MEDS ORDERED: AMBIEN5 MG PO (10:23)
--- NOTE | 2019-06-10 13:03 | NUR ---
AT 1020 - GIVEN MG OXIDE 400MG PO AND KCL 40 MEQ FOR ELECTROLYTE REPLACEMENT. RECEIVED DISCHARGE ORDERS. PATIENT SAYS THAT HIS FATHER WILL BE ABLE TO TAKE HIM HOME IN THE AFTERNOON.. AT 1200 - MEDICATED WITH ATIVAN PO PER EMAR. AT 1315 - HAS EATEN LUNCH. FATHER WILL PROPERTY WORKER PATIENT AT 1400.
[2019-06-10 13:14] VITALS: BP 157/107
--- NOTE | 2019-06-10 13:36 | NUR ---
PRINTED DISCHARGE INSTRUCTIONS GIVEN AND EXPLAINED TO PATIENT. PRESCRIPTION PROVIDED. IV CATHETER REMOVED INTACT. PREPARED FOR DISCHARGE. PATIENT'S BOX OF CIGARETTES RETURNED TO HIM BUT PATIENT STRONGLY ENCOURAGED TO CONSIDER SMOKING CESSATION ADN NOT TO SMOKE WITH NICODERM PATCH. AT 1241 - DISCHARGED HOME WITH FATHER. ESCORTED AMBULATORY TO CAR BY GRACE.
== END 2019-06-10 13:55 | disposition home or self-care (01) | DRG 282 ==
LOC: ED 00:49 → DU 06:09 → MU 06-09 11:06
PROVIDERS: Emergency Medicine; Internal Medicine; ADMIT General Practice
DX: K85.20 Alcohol induced acute pancreatitis without necrosis or infection (principal); N17.0 Acute kidney failure with tubular necrosis; D69.59 Other secondary thrombocytopenia; E83.42 Hypomagnesemia; F41.8 Other specified anxiety disorders; F10.232 Alcohol dependence with withdrawal with perceptual disturbance; F10.229 Alcohol dependence with intoxication, unspecified; E87.6 Hypokalemia; G25.1 Drug-induced tremor; D72.819 Decreased white blood cell count, unspecified; R80.9 Proteinuria, unspecified; I10 Essential (primary) hypertension; E78.5 Hyperlipidemia, unspecified; F41.9 Anxiety disorder, unspecified; F32.9 Major depressive disorder, single episode, unspecified; I25.2 Old myocardial infarction; Z68.27 Body mass index [BMI] 27.0-27.9, adult; Z79.82 Long term (current) use of aspirin; Z81.1 Family history of alcohol abuse and dependence; Z91.19 Patient's noncompliance with other medical treatment and regimen; Y90.8 Blood alcohol level of 240 mg/100 ml or more
CPT/HCPCS: 82962; G0378; G0480; J1885; J2060; J2405; J3010; J3411; J3475; J3480; J7030

== ENCOUNTER 2019-06-22 17:33 | Inpatient (IN) | payer MEDICAID ==
[~2019-06-22] VITALS: Ht 180.3 cm; Wt 87.3 kg
[~2019-06-22 17:33] MED LIST changes: +AMBIEN10 MG PO; +AMBIEN5 MG PO
[2019-06-22 17:40] VITALS: Ht 180.3 cm; Wt 87.3 kg
--- NOTE | 2019-06-22 18:18 | NUR ---
MSE COMPLETED BY DR LIAO
--- NOTE | 2019-06-22 18:29 | NUR ---
LAB AT BEDSIDE FOR BLOOD DRAW
--- NOTE | 2019-06-22 18:30 | NUR ---
PT MEDICATED PER MD ORDERS SEE EMAR.
--- NOTE | 2019-06-22 18:54 | NUR ---
PT WATCHING TV. LIGHTS OFF PER PTS REQUEST. IVF INFUSING WITH NO PROBLEM. WILL CONTINUE TO MONITOR
[2019-06-22 19:04] LABS: PLATELET COUNT 316 x10^3mcL (130-400)
[2019-06-22 19:08] LABS: RED CELL DISTRIBUTION WIDTH 26.5 % (11.5-14.5)
--- NOTE | 2019-06-22 19:10 | NUR ---
REPORT GIVEN TO [facility] RESUMING CARE OF PT AT THIS TIME
[2019-06-22 19:14] LABS: CHLORIDE SERUM 106 mmol/L (98-107); CREATININE SERUM 0.8 mg/dL (0.7-1.3); GFR1 > 60 mL/min; GLUCOSE SERUM 95 mg/dL (74-106); POTASSIUM SERUM 3.5 mmol/L (3.5-5.1); SODIUM SERUM 148 mmol/L (136-145)
[2019-06-22 19:21] LABS: ALBUMIN 3.7 g/dL (3.4-5.0); ALKALINE PHOSPHATASE 66 U/L (46-116); ALT/SGPT 78 U/L (16-63); AST/SGOT 79 U/L (15-37); BILIRUBIN TOTAL 0.3 mg/dL (0.20-1.00); LIPASE 705 IU/L (73-393); MAGNESIUM 1.7 mg/dL (1.8-2.4); TOTAL PROTEIN, SERUM 7.4 g/dL (6.4-8.2)
--- NOTE | 2019-06-22 19:21 | NUR ---
RECEIVED PT FROM JULIA-RN, PT SEEN, RESTING IN BED, AAO X 4 AND VERY VERBALLY RESPONSIVE, DENIES HEADACHE OR DIZZINESS BUT STILL C/O OF SEVERE ABD PAIN AFTER MEDICATED WITH MORPHINE IVP BY DAY SHIFT, PT WAS ALOS ASKING SOMETHING TO DRINK BUT PER DR LIAO THAT PT IS NPO AT THIS TIME, NO NEW ORDERS AT THIS TIME.
[2019-06-22 19:28] LABS: BAND NEUTROPHIL 2 % (0-10); MONOCYTE 8 % (0-7); SEGMENTED NEUTROPHILS 56 % (37-75)
--- NOTE | 2019-06-22 19:30 | NUR ---
DR LIAO MADE AWARE OF PT STILL IN SEVERE ABD PAIN AND PT'S ALCOHOL LEVEL-0.441
[2019-06-22 19:32] LABS: rbc morphology (normal/abnorm) ABNORMAL (NORMAL)
[2019-06-22 19:33] LABS: PLATELET MORPHOLOGY PLATELETS NORMAL
--- NOTE | 2019-06-22 19:36 | NUR ---
MEDICATED PT WITH PAIN MEDS PER EMAR.
[2019-06-22] MEDS ORDERED: METOPROLOL SUCC50 M2 PO (19:46)
[2019-06-22] MEDS ORDERED: ASPIRIN CHILDRE81 MG PO (19:46)
[2019-06-22] MEDS ORDERED: LIPITOR40 MG PO (19:46)
[2019-06-22] MEDS ORDERED: ATIVAN2 MG PO (19:46)
--- NOTE | 2019-06-22 19:46 | NUR ---
WALKED IN TO PT'S ROOM AND FOUND PT WAS TRYING TO DRINK WATER FFROM THE SINK, EDUCATED PT THAT HE IS NPO AT THIS TIME DUE TO PANCREATITIS, PT VERBALIZED UNDERSTANDING.
[2019-06-22] MEDS ORDERED: NATURE'S BLEND F1 MG PO (19:47)
--- NOTE | 2019-06-22 20:36 | NUR ---
PT CALLED AND WENT TO PT'S ROOM, NOTED PT'S GOWN IS WET, PT ADMITTED THAT HE HAD SIP OF WATER FROM THE SINK, EDUCATED PT AGAIN THAT HE IS NPO AT THIS TIME DUE TO PANCREATITIS, PT VERBALIZED UNDERSTANDING THAT HE WILL NOT DRINK WATER AGAIN FROM THE SINK.
--- NOTE | 2019-06-22 20:49 | NUR ---
DR WILLIS AT BEDSIDE AND DENNIS PT.
--- NOTE | 2019-06-22 20:54 | NUR ---
REPORT CALLED TO ALLY, ALL QUESTIONS ANSWERED AND CONCERNS ADDRESSED.
--- NOTE | 2019-06-22 20:58 | NUR ---
PER DR LIAO THAT OKAY TO BRING PT UP WHEN ADMIT ORDERS IN.
[2019-06-22 21:38] VITALS: BP 159/108
--- NOTE | 2019-06-22 21:50 | NUR ---
RECEIVED FROM ER, TRANSPORTED VIA GUER[facility]. AWAKE AND ALERT, ORIENTED TO NAME, PLACE, TIME AND SITUATION. SPEECH CLEAR AND APPROPRIATE. BREATHING EVEN AND UNLABORED ON ROOM AIR. SALINE LOCK TO LEFT HAND. STATED SOUGHT ADMISSION DUE TO ABD PAIN. STATED PAIN HAS GONE DOWN TO 6/10 AFTER RECEIVING FENTANYL IN ER. ADMISSION ASSESSMENT AND HISTORY DONE. ENDORSED TO NURSE GLOVER.
--- NOTE | 2019-06-22 21:51 | NUR ---
RECEIVED PT FROM [facility]. PT A/OX4. DENIES SOB ON RA. IV PATENT. SEIZURE PRECAUTIONS IN PLACE. PT ORIENTED TO ROOM AND SURROUNDINGS. CALL LIGHT WITHIN REACH, BED IN LOW POSITION. WILL CONTINUE TO MONITOR.
--- NOTE | 2019-06-23 02:42 | NUR ---
PT RESTING IN NO ACUTE DISTRESS. RR EVEN AND UNLABORED. CALL LIGHT WITHIN REACH, BED IN LOW POSITION. WILL CONTINUE TO MONITOR.
[2019-06-23 04:38] VITALS: BP 132/89
[2019-06-23 06:38] LABS: PLATELET COUNT 264 x10^3mcL (130-400)
[2019-06-23 06:55] LABS: RED CELL DISTRIBUTION WIDTH 26.2 % (11.5-14.5)
[2019-06-23 06:57] LABS: CALCIUM 7.2 mg/dL (8.5-10.1); CARBON DIOXIDE 25.9 mmol/L (21-32); CHLORIDE SERUM 102 mmol/L (98-107); CREATININE SERUM 0.6 mg/dL (0.7-1.3); GFR1 > 60 mL/min; GLUCOSE SERUM 66 mg/dL (74-106); LIPASE 445 IU/L (73-393); POTASSIUM SERUM 3.5 mmol/L (3.5-5.1); SODIUM SERUM 142 mmol/L (136-145)
--- NOTE | 2019-06-23 07:00 | NUR ---
RECEIVED REPORT FROM ANGELES RN, PT IN NO ACUTE RESP DISTRESS
--- NOTE | 2019-06-23 07:25 | NUR ---
PT IN BED, VERBAL, ENLISH, CALM AND COPPERATIVE, PERRLA, NO REDNESS/DRAINAGE, AXOX4, SEIZURE PRECAUTION, FALL RISK PRECAUTION, RESP EVEN, NO SOB/COUGH, DENIED CP/PRESSURE/SAMPSON, DENIED N/V/D, CHEST RISE SYMMETRICALLY, TELE # 2, HR-90 AT THIS TIME, NSR, ABD SOFT AND MILD-TENDER TO TOUCH, SEE SKIN ASSESSMENT, GEN. WEAKNESS, CONTINENT, PALP PULSES, CAP REFILL < 3 SECS, IV PATENT AND INFUSING WELL, ALL NEEDS ADDRESSED AT THIS TIME, SAFETY PROTOCOL FOLLOWED, CONTINUE TO MONITOR
[2019-06-23 08:07] LABS: BAND NEUTROPHIL 0 % (0-10); BASOPHIL 1 % (0-2); MONOCYTE 5 % (0-7); SEGMENTED NEUTROPHILS 41 % (37-75); rbc morphology (normal/abnorm) ABNORMAL (NORMAL)
[2019-06-23 08:08] LABS: PLATELET MORPHOLOGY PLATELETS INCREASED
[2019-06-23 08:39] VITALS: BP 129/82
--- NOTE | 2019-06-23 09:23 | NUR ---
PT RESTING IN BED, IN NO ACUTE RESP DISTRESS, AM MED GIVEN PER MD ORDER VIA EMAR, TAKEN WELL, NO SIDE EFFECT NOTED AT THIS TIME, ALL NEEDS ADDRESSED SAFETY PROTOCOL FOLLOWED, AVINASH TO MONITOR
--- NOTE | 2019-06-23 10:41 | NUR ---
PT REPORTED HOT AND SWEATING, BS CHECKED, NOTED 76, PT NPO S/P PANCREATITIS, DR MARY WEIR MADE AWARE, NEW ORDER OBTAINED, PT MADE AWARE, CONTINUE TO MONITOR
[2019-06-23 12:20] VITALS: BP 132/96
--- NOTE | 2019-06-23 12:45 | NUR ---
PT REPORTED NERVOUS AND HX OF SMOKING, REQUESTED NICOTIN PATCH DURING HOSPITALIZATION, MD MADE AWARE, NEW ORDER OBTAINED, AWAITING FOR PHARMACIST VERIFICATION, PT MADE AWARE AND VERBALLY UNDERSTANDING
--- NOTE | 2019-06-23 14:44 | NUR ---
COLLECTED URINE FOR UDS, SENT TO LAB, PT MADE AWARE
[2019-06-23 16:01] LABS: microscopic required? NO
[2019-06-23 16:10] LABS: UA SPECIFIC GRAVITY 1.015 (1.005-1.035); urine erythrocyte NEGATIVE (NEGATIVE)
[2019-06-23 16:18] LABS: AMPHETAMINE QUAL UR NONE DETECTED (See below)
[2019-06-23 16:25] VITALS: BP 154/100
--- NOTE | 2019-06-23 17:38 | NUR ---
PT SLEEPING IN BED, IN NO APPARENT DISTRESS, NO FACIAL DROOP, RESP EVEN, NO COUGH/SOB, CHEST RISE SYMMETRICALLY, CALM AND COPPERATIVE AT THIS TIME, SEIZURE PRECAUTION, FALL RISK, CONTINENT, STAYED IN BED DURING SHIFT, IV PATENT AND INFUSING WELL, NPO, ALL NEEDS ADDRESSED AT THIS TIME, SAFETY PRECAUTION FOLLOWED, WILL ENDORSE TO ONCOMING RN
--- NOTE | 2019-06-23 18:53 | NUR ---
REPORT GIVEN TO KIRSTIN RN NIGHTSHIFT, PT IN NO ACUTE DISTRESS
--- NOTE | 2019-06-23 19:30 | NUR ---
REC'D PT FROM DAY NURSE. PT RESTING IN BED. AAOX4, SPEECH CLEAR, FOLLOWS COMMANDS. TELE 2. DENIES CP, DIZZINESS, OR PALPITATIONS. DENIES RESP DISTRESS OR SOB. BREATHING EVEN/UNLABORED ON RA. ABD SOFT/ROUND. C/O 7/10 PAIN DULL/SHARP PAIN ACROSS THE ABD. WILL GIVEN MORPHINE PER ORDER. DENIES N/V. NPO. GEN WEAKNESS. NOTED BUE TREMORS WHEN HOLDING A CUP. VOIDING FREELY. SKIN INTACT. IV TO LH PATENT AND INFUSING, SITE WNL. CALL LIGHT WITHIN REACH, BED AT LOWEST POSITION, BED ALARM ON. WILL CONTINUE TO MONITOR.
--- NOTE | 2019-06-23 20:07 | NUR ---
MORPHINE GIVEN FOR ABD PAIN 05/17. REQUESTING ATIVAN BUT INFORMED UNABLE TO GIVE WITH MORPHINE D/T SIDE EFFECT OF RESP DEPRESSION. PT VERBALIZED UNDERSTANDING.
[2019-06-23 21:06] VITALS: BP 140/98
--- NOTE | 2019-06-24 01:58 | NUR ---
PT AWAKE AND RESTING IN BED WATCHING TV. NO S/SX OF PAIN NOTED. BREATHING EVEN/UNLABORED ON RA. CALL LIGHT WITHIN REACH, BED AT LOWEST POSITION. WILL CONTINUE TO MONITOR.
--- NOTE | 2019-06-24 02:56 | NUR ---
PT RESTING IN BED WITH EYES CLOSED. APPEARS TO BE SLEEPING. REPOSITIONS FREQUENTLY. DERAS CLAMPED FOR URINE COLLECTION. BREATHING EVEN/UNLABORED ON RA. CALL LIGHT WITHIN REACH, BED AT LOWEST POSITION, BED ALARM ON. WILL CONTINUE TO MONITOR.
[2019-06-24 05:28] VITALS: BP 140/96
--- NOTE | 2019-06-24 05:59 | NUR ---
PT RESTING IN BED WITH EYES CLOSED. NO SIGNS OF DISTRESS OR PAIN NOTED. BREATHING EVEN/UNLABORED ON RA. SCHEDULED LIBRIUM GIVEN FOR ETOH PROTOCOL. TREMORS TO BUE WHEN HOLDING A CUP. NO SIGNIFICANT CHANGES DURING SHIFT. PT HAS NOT HAD ANY HALLUCINATIONS. CALL LIGHT WITHIN REACH, BED AT LOWEST POSITION. WILL ENDORSE TO DAY NURSE.
--- NOTE | 2019-06-24 07:20 | NUR ---
RECEIVED PT FROM KIRSTIN RN, PT IN NO ACUTE DISTRESS
[2019-06-24 07:33] LABS: CALCIUM 8.4 mg/dL (8.5-10.1); CARBON DIOXIDE 25.5 mmol/L (21-32); CHLORIDE SERUM 100 mmol/L (98-107); CREATININE SERUM 0.6 mg/dL (0.7-1.3); GFR1 > 60 mL/min; GLUCOSE SERUM 92 mg/dL (74-106); MAGNESIUM 1.5 mg/dL (1.8-2.4); PHOSPHOROUS 3.3 mg/dL (2.5-4.9); POTASSIUM SERUM 3.6 mmol/L (3.5-5.1); SODIUM SERUM 138 mmol/L (136-145)
--- NOTE | 2019-06-24 07:46 | NUR ---
PT IN BED, VERBAL, FILIPINO, REPORTED MILD ANXIETY BUT TOLERABLE, PERRLA, NO REDNESS/DRAINAGE, AXOX4, SEIZURE PRECAUTION, FALL RISK PRECAUTION, RESP EVEN, NO SOB/COUGH, DENIED CP/PRESSURE/SAMPSON, DENIED N/V/D, CHEST RISE SYMMETRICALLY, TELE # 2, HR-94 AT THIS TIME, NSR, ABD SOFT AND MILD-TENDER TO TOUCH, SEE SKIN ASSESSMENT, GEN. WEAKNESS, CONTINENT, PALP PULSES, CAP REFILL < 2 SECS, IV PATENT AND INFUSING WELL, ALL NEEDS ADDRESSED AT THIS TIME, SAFETY PROTOCOL FOLLOWED, CONTINUE TO MONITOR
[2019-06-24 08:23] VITALS: BP 131/93
[2019-06-24 08:35] LABS: PLATELET COUNT 222 x10^3mcL (130-400)
[2019-06-24 08:37] LABS: RED CELL DISTRIBUTION WIDTH 25.4 % (11.5-14.5)
--- NOTE | 2019-06-24 08:44 | NUR ---
PT IN NO ACUTE RESP DISTRESS, AM MED GIVEN PER MD ORDER VIA EMAR, TAKEN WELL, NO ASE NOTED AT THIS TIME, CONTINUE TO MONITOR
--- NOTE | 2019-06-24 10:20 | NUR ---
COMPUTER DISCOVERY TEACHER MICHI MANCIA MADE AWARE OF MG LEVEL 1.5
[2019-06-24 10:47] LABS: BAND NEUTROPHIL 9 % (0-10); BASOPHIL 0 % (0-2); MONOCYTE 6 % (0-7); SEGMENTED NEUTROPHILS 57 % (37-75); rbc morphology (normal/abnorm) ABNORMAL (NORMAL)
[2019-06-24 10:50] LABS: ovalocyte/elliptocyte 1+; target cell (codocyte) 2+
[2019-06-24 12:13] VITALS: BP 140/99
--- NOTE | 2019-06-24 12:47 | NUR ---
RECEIVED NEW ORDER FROM MICHI INGRAM, PT MADE AWARE, MED GIVEN PER ORDERED VIA EMAR, TAKEN WELL, NO ASE NOTED AT THIS TIME, WILL CONTINUE TO MONITOR
--- NOTE | 2019-06-24 16:16 | NUR ---
PT RESTING IN BED, WATCHING TV, IN NO ACUTE DISTRESS, FULL LIQUID DIET STARTED AT LUNCH, REPORTED POOR APPETITE
[2019-06-24 17:21] VITALS: BP 140/98
--- NOTE | 2019-06-24 17:32 | NUR ---
PT ASSISTED TO COMMODE, TRIED TO STANDING UP BUT HANDS WERE SHAKY D/T ETOH INTOXICATION, MT REPORTED PT HAD TACHYCARDIA W/ HR AT 161, PT IN NO ACUTE DISTRESS, PT REPORTED HAVING MILD ANXIETY WHEN OOB CAUSED HE AFFRAID OF FALLING D/T EXTREMITIES SHAKING, PT ASSISTED BACK TO BED, RELAX AND COMFORTABLE IN BED, HR RECHECKED NOTED 98, PT REPORTED NO CP/PRESURE/SAMPSON/DIZZINESS, ALL NEEDS ADDRESSED AT THIS TIME, PT EDUCATED TO ASK FOR ASSISTANCE WHEN OOB D/T SEIZURE PRECAUTION AND FALL RISK RECAUTION, VERBALLY UNDERSTANDING, CONTINUE TO MONITOR
--- NOTE | 2019-06-24 19:40 | NUR ---
REC'D PT FROM DAY NURSE. PT RESTING IN BED. AAOX4, SPEECH CLEAR, FOLLOWS COMMANDS. SZ PREC IN PLACE. ETOH PROTOCOL. DENIES RESP DISTRESS OR SOB. BREATHING EVEN/UNLABORED ON RA. TELE 2. DENIES CP, DIZZINESS, OR PALPITATIONS. NO EDEMA NOTED. ABD SOFT/ROUND/TENDER. C/O GENERALIZED ABD PAIN SHARP 9/10 "THEN DULL AFTER MEDICATION." WILL GIVE MORPHINE. VOIDING FREELY. GEN WEAKNESS. MILD TREMORS TO BUE. REPORTS SOME ANXIETY AND HALLUCINATING EARLIER. STATES HE "SAW SOME PEOPLE IN THE ROOM AND WAS TALKING TO THEM BUT THEY WEREN'T REALLY THERE." PT IS CALM AND DOES NOT APPEAR TO BE AND DENIES HALLUCINATING CURRENTLY. ETOH PROTOCOL. IV TO LH PATENT AND INFUSING, SITE WNL. CALL LIGHT WITHIN REACH, BED AT LOWEST POSITION. WILL CONTINUE TO MONITOR.
[2019-06-24 21:31] VITALS: BP 141/105
--- NOTE | 2019-06-25 00:24 | NUR ---
PT C/O FEELING VERY ANXIOUS. BUE TREMORS NOTED. ATIVAN GIVEN PER ORDER. WILL MONITOR FOR RELIEF.
--- NOTE | 2019-06-25 01:11 | NUR ---
PT AWAKE AND RESTING IN BED. WATCHING TV. REPORTS FEELING LESS ANXIOUS. BREATHING EVEN/UNLABORED ON RA. CALL LIGHT WITHIN REACH, BED AT LOWEST POSITION. WILL CONTINUE TO MONITOR.
[2019-06-25 05:23] VITALS: BP 119/83
--- NOTE | 2019-06-25 06:03 | NUR ---
PT RESTING IN BED WITH EYES CLOSED. BREATHING EVEN/UNLABORED ON RA. NO S/SX OF PAIN NOTED. AWAKENS WITH VERBAL STIMULI. DUE MEDS GIVEN. NO SIGNIFICANT CHANGES DURING SHIFT. CALL LIGHT WITHIN REACH, BED AT LOWEST POSITION. WILL ENDORSE TO DAY NURSE.
--- NOTE | 2019-06-25 07:00 | NUR ---
RECEIVED REPORT FROM KIRSTIN RN, PT IN NO ACUTE RESP DISTRESS
--- NOTE | 2019-06-25 07:20 | NUR ---
PT HAD UPGRADED DIET TO REGULAR DIET FOR BREAKFAST BY NATALY MANCIA, PT MADE AWARE
--- NOTE | 2019-06-25 07:45 | NUR ---
PT IN BED, VERBAL, LEBANESE, PERRLA, NO FACIAL DROOP/SLURRED SPEECH, NO REDNESS/DRAINAGE, AXOX4, SEIZURE PRECAUTION, FALL RISK PRECAUTION, RESP EVEN, NO SOB/COUGH, DENIED CP/PRESSURE/SAMPSON, DENIED N/V/D, CHEST RISE SYMMETRICALLY, TELE # 2, HR-65 AT THIS TIME, NSR, ABD SOFT AND NO-TENDER TO TOUCH, SEE SKIN ASSESSMENT, GEN. WEAKNESS, CONTINENT, PALP PULSES, CAP REFILL < 2 SECS, IV PATENT AND INFUSING WELL, ALL NEEDS ADDRESSED AT THIS TIME, SAFETY PROTOCOL AND SEIZURE PROTOCOL FOLLOWED, FOLLOWED, CONTINUE TO MONITOR
--- NOTE | 2019-06-25 08:55 | NUR ---
PT NOT IN ACUTE RESP DISTRESS, AM MED GIVEN PER MD ORDER VIA EMAR, TAKEN WELL, NO ASE NOTED AT THIS TIME, CONTINUE TO MONITOR
[2019-06-25 09:13] LABS: CALCIUM 8.6 mg/dL (8.5-10.1); CARBON DIOXIDE 23.9 mmol/L (21-32); CHLORIDE SERUM 105 mmol/L (98-107); CREATININE SERUM 0.7 mg/dL (0.7-1.3); GFR1 > 60 mL/min; GLUCOSE SERUM 91 mg/dL (74-106); MAGNESIUM 2.1 mg/dL (1.8-2.4); POTASSIUM SERUM 3.8 mmol/L (3.5-5.1); SODIUM SERUM 140 mmol/L (136-145)
--- NOTE | 2019-06-25 09:35 | NUR ---
PT TOLERATED REGULAR DIET WELL, REPORTED GOOD APPETITE
[2019-06-25 09:57] LABS: BASOPHIL % 0.1 % (0-2); PLATELET COUNT 196 x10^3mcL (130-400)
[2019-06-25 10:03] LABS: RED CELL DISTRIBUTION WIDTH 24.8 % (11.5-14.5); rbc morphology (normal/abnorm) ABNORMAL (NORMAL)
[2019-06-25 10:04] LABS: ovalocyte/elliptocyte 1+; target cell (codocyte) 2+
[2019-06-25 10:07] VITALS: BP 130/98
--- NOTE | 2019-06-25 11:56 | NUR ---
PT REPORTED ANXIETY, ATIVAN 0.5MG X 1 TAB GIVEN PER MD PRN ORDER VIA EMAR, TAKEN WELL, NO ASE NOTED AT THIS TIME, PT RESTING IN BED, STIMULI REDUCED, CONTINUE TO MONITOR
[2019-06-25 12:47] VITALS: BP 109/79
[2019-06-25 17:14] VITALS: BP 133/93
--- NOTE | 2019-06-25 17:51 | NUR ---
PT IN BED, AXOX4, REPOTED NO CP/PRESURE/SMAPSON, DENIED HALLUCINATION, DENIED N/V/D, VERBAL, ABLE TO MAKE NEEDS KNOWN, RESP EVEN, NO SOB/COUGH, SEIZURE PRECAUTION, FALL RISK, ALL NEEDS ADDRESSED AT THIS TIME, SAFETY PROTOCOL FOLLOWED, WILL CONTINUE TO MONITOR
--- NOTE | 2019-06-25 18:56 | NUR ---
IV LEAKING, IV REMOVED, IV CATH TIP INTACT, NO ACTIVE BLEEDING NOTED, NEW IV STARTED TO (R) FORARM, PATENT AND INFUSING WELL, 22G
--- NOTE | 2019-06-25 19:30 | NUR ---
PT RECIEVED FROM DAY NURSE. PT RESTING IN BED COMFORTABLY. DENIES PAIN AT THIS TIME. A/OX4, CALM AND COOPERATIVE AT THIS TIME. TELE 2, NSR. DENIES CP, NV, DIZZINESS, AND PALPATATIONS. PALPABLE PULSES, NO EDEMA NOTED AT THIS TIME. BREATHING E/U, ON RA. DENIES SOB. ABD SOFT AND ROUND, MIDLINE ADB PAIN TO PALPATION. RH IV, CDI AND INFUSING. BED AT LOWEST POSITION. CALL LIGHT WITHIN REACH. WILL CONTINUE TO MONITOR.
--- NOTE | 2019-06-25 20:50 | NUR ---
PT COMPLAINING OF ANXITY/AGITATION. MEDICATED PT WITH PRN ATIVAN. WILL CONTINUE TO MONITOR.
[2019-06-25 20:53] VITALS: BP 125/91
--- NOTE | 2019-06-25 21:30 | NUR ---
PT COMPLAINING OF INSOMNIA. MEDICATED PT WITH PRN AMBIAN.WILL CONTINUE TO MONITOR.
--- NOTE | 2019-06-26 | NUR ---
PT RESTING IN BED COMFORTABLY AT THIS TIME. NO S/S OF PAIN OR DISTRESS NOTED AT THIS TIME. BREATHING E/U ON RA. BED AT LOWEST POSITION. CALL LIGHT WITHIN REACH. WILL CONTINUE TO MONITOR.
--- NOTE | 2019-06-26 06:40 | NUR ---
PT RESTING IN BED AT THIS TIME. NO S/S OF PAIN OR DISTRESS NTOED. BREATHING E/U ON RA. BED AT LOWEST POSITION. CALL LIGHT WIHTIN REACH. WILL ENDORSE TO DAY NURSE.
--- NOTE | 2019-06-26 07:25 | NUR ---
RECEIVED PT IN BED A/A/OX4 DENIES SAMPSON, ON ETOH PROTOCOL WITH MILD TREMORS OF HANDS NOTED. SZ PRECAUTIONS IN PLACE. RESP EVEN AND UNLABORED WITH CLEAR BS BILAT. DENIES ANY SOB/CP/PRESSURE AT THIS TIME. NSR ON TELE HR 84. NO EDEMA NOTED. ABD SOFT, NONTENDER WITH ACTIVE BS X4. DENIES ANY N/V AT THIS TIME. VOIDING FREELY. AMBULATORY WITH ASSIST INSTRUCTED TO USE CALL LIGHT WHEN IN NEED. UNSTEADY GAIT D/T TREMORS. CALL LIGHT IN REACH NEEDS ATTENDED TO.
[2019-06-26 07:54] LABS: PLATELET COUNT 185 x10^3mcL (130-400)
[2019-06-26 07:56] LABS: RED CELL DISTRIBUTION WIDTH 25.1 % (11.5-14.5)
[2019-06-26 08:14] LABS: CALCIUM 8.6 mg/dL (8.5-10.1); CARBON DIOXIDE 26.2 mmol/L (21-32); CHLORIDE SERUM 105 mmol/L (98-107); CREATININE SERUM 0.8 mg/dL (0.7-1.3); GFR1 > 60 mL/min; GLUCOSE SERUM 78 mg/dL (74-106); MAGNESIUM 1.7 mg/dL (1.8-2.4); POTASSIUM SERUM 3.7 mmol/L (3.5-5.1); SODIUM SERUM 140 mmol/L (136-145)
[2019-06-26 08:24] LABS: ATYPICAL LYMPH 1 %; BAND NEUTROPHIL 0 % (0-10); BASOPHIL 0 % (0-2); MONOCYTE 9 % (0-7); PLATELET MORPHOLOGY PLATELETS DECREASED; SEGMENTED NEUTROPHILS 66 % (37-75)
[2019-06-26 08:27] VITALS: BP 142/97
[2019-06-26 08:29] LABS: rbc morphology (normal/abnorm) ABNORMAL (NORMAL)
[2019-06-26] MEDS ORDERED: ATIVAN1 MG PO (09:34)
--- NOTE | 2019-06-26 11:30 | NUR ---
SPOKE WITH CM REGARDING PT'S REQUEST FOR ASSISTANCE WITH TRANSPORTATION HOME. ARRANGEMENTS MADE WITH PT'S INSURANCE AND SECURITY PROGRAM MANAGER TIME SCHEDULED FOR 1300.
[2019-06-26 11:41] VITALS: BP 115/86
[2019-06-26 12:29] VITALS: BP 118/67
--- NOTE | 2019-06-26 13:00 | NUR ---
PT PROVIDED WITH D/C HOME INSTRUCTIONS. GIVEN MEDICATION/PRESCRIPTION EDUCATION. MADE AWARE NOT TO DRINK WHILE TAKING ATIVAN INSTRUCTED BY FIRST LINE SUPERVISOR. PT TO FOLLOW UP WITH PCP WITH IN A WEEK AND OBTAINED ATIVAN IF HE CONT TO NEEDED FOR WITHDRAWALS. PT VERBALIZED UNDERSTANDING OF INSTRUCTIONS. TELE AND IV D/C'D CATHETER INTACT. PT LEFT FLOOR VIA WC WITH ALL PERSONAL BELONGINGS IN HAND FREE OF ANY APPARENT DISTRESS. PT'S LIFT RIDE WILL BE HERE BY 1300 PT TAKEN DOWN TO WAIT OUTSIDE FOR RIDE HOME.
== END 2019-06-26 13:00 | disposition home or self-care (01) | DRG 282 ==
LOC: ED 17:33 → DU 20:40
PROVIDERS: Emergency Medicine; ADMIT Internal Medicine
DX: K85.20 Alcohol induced acute pancreatitis without necrosis or infection (principal); F10.231 Alcohol dependence with withdrawal delirium; E87.0 Hyperosmolality and hypernatremia; E83.42 Hypomagnesemia; F10.229 Alcohol dependence with intoxication, unspecified; D50.9 Iron deficiency anemia, unspecified; F17.210 Nicotine dependence, cigarettes, uncomplicated; E86.0 Dehydration; F32.9 Major depressive disorder, single episode, unspecified; S00.12XA Contusion of left eyelid and periocular area, initial encounter; S90.812A Abrasion, left foot, initial encounter; R74.0 Nonspecific elevation of levels of transaminase and lactic acid dehydrogenase [LDH]; I10 Essential (primary) hypertension; F41.9 Anxiety disorder, unspecified; I25.2 Old myocardial infarction; Z68.25 Body mass index [BMI] 25.0-25.9, adult; Z79.82 Long term (current) use of aspirin; Z91.81 History of falling; W19.XXXA Unspecified fall, initial encounter; Y92.9 Unspecified place or not applicable; Y90.8 Blood alcohol level of 240 mg/100 ml or more
CPT/HCPCS: 82962; 87116; 87206; G0378; G0480; J2060; J2270; J2405; J3010; J3475; J7030; J7042

== ENCOUNTER 2019-07-20 15:29 | Emergency (ER) | payer MEDICAID ==
[~2019-07-20] VITALS: Ht 180.3 cm; Wt 85.7 kg
[~2019-07-20 15:29] MED LIST changes: +ASPIRIN CHILDRE81 MG PO; +ATIVAN1 MG PO; +LIPITOR40 MG PO; +METOPROLOL SUCC50 M2 PO; +NATURE'S BLEND F1 MG PO
[2019-07-20 15:57] VITALS: Ht 180.3 cm; Wt 85.7 kg
[2019-07-20 18:20] LABS: BASOPHIL % 1.1 % (0-2); PLATELET COUNT 385 x10^3mcL (130-400)
[2019-07-20 18:21] LABS: microscopic required? NO
[2019-07-20 18:23] LABS: RED CELL DISTRIBUTION WIDTH 20.1 % (11.5-14.5)
[2019-07-20 18:30] LABS: UA SPECIFIC GRAVITY <=1.005 (1.005-1.035); urine erythrocyte NEGATIVE (NEGATIVE)
[2019-07-20 18:35] LABS: CALCIUM 8.3 mg/dL (8.5-10.1); CARBON DIOXIDE 27.6 mmol/L (21-32); CHLORIDE SERUM 101 mmol/L (98-107); CREATININE SERUM 0.8 mg/dL (0.7-1.3); GFR1 > 60 mL/min; GLUCOSE SERUM 84 mg/dL (74-106); POTASSIUM SERUM 3.8 mmol/L (3.5-5.1); SODIUM SERUM 143 mmol/L (136-145)
[2019-07-20 18:39] LABS: AMPHETAMINE QUAL UR NONE DETECTED (See below)
[2019-07-20 18:45] LABS: rbc morphology (normal/abnorm) ABNORMAL (NORMAL)
[2019-07-20 18:46] LABS: ALBUMIN 3.8 g/dL (3.4-5.0); ALKALINE PHOSPHATASE 91 U/L (46-116); ALT/SGPT 24 U/L (16-63); AST/SGOT 28 U/L (15-37); BILIRUBIN TOTAL 0.2 mg/dL (0.20-1.00); LIPASE 205 IU/L (73-393); T4(THYROXINE) 4.9 ug/dL (4.7-13.3)
[2019-07-20 18:47] LABS: TOTAL PROTEIN, SERUM 8.5 g/dL (6.4-8.2)
[2019-07-20 20:02] VITALS: BP 130/84
== END 2019-07-20 20:02 | disposition home or self-care (01) ==
LOC: ED 15:29
PROVIDERS: Emergency Medicine
DX: F10.129 Alcohol abuse with intoxication, unspecified (principal); D64.9 Anemia, unspecified; I10 Essential (primary) hypertension; E78.00 Pure hypercholesterolemia, unspecified; F32.9 Major depressive disorder, single episode, unspecified; F17.210 Nicotine dependence, cigarettes, uncomplicated; I45.6 Pre-excitation syndrome; R10.816 Epigastric abdominal tenderness; F41.9 Anxiety disorder, unspecified; Z90.89 Acquired absence of other organs; Z98.890 Other specified postprocedural states; Y90.8 Blood alcohol level of 240 mg/100 ml or more
CPT/HCPCS: 99406; G0480; J3411; J3475; J3490; J7030

== ENCOUNTER 2019-08-20 18:43 | Inpatient (IN) | payer MEDICAID ==
[~2019-08-20] VITALS: Ht 180.3 cm; Wt 82.6 kg
[2019-08-20 18:47] VITALS: Ht 180.3 cm; Wt 82.6 kg
[2019-08-20 19:49] LABS: BASOPHIL % 1.7 % (0-2); PLATELET COUNT 349 x10^3mcL (130-400)
[2019-08-20 19:52] LABS: RED CELL DISTRIBUTION WIDTH 21.5 % (11.5-14.5)
[2019-08-20 20:01] LABS: CALCIUM 9.7 mg/dL (8.5-10.1); CARBON DIOXIDE 26.6 mmol/L (21-32); CHLORIDE SERUM 102 mmol/L (98-107); CREATININE SERUM 0.8 mg/dL (0.7-1.3); GFR1 > 60 mL/min; GLUCOSE SERUM 109 mg/dL (74-106); POTASSIUM SERUM 4.2 mmol/L (3.5-5.1); SODIUM SERUM 140 mmol/L (136-145)
[2019-08-20 20:06] LABS: ALBUMIN 4.3 g/dL (3.4-5.0); ALKALINE PHOSPHATASE 76 U/L (46-116); ALT/SGPT 131 U/L (16-63); AST/SGOT 79 U/L (15-37); BILIRUBIN TOTAL 0.37 mg/dL (0.20-1.00); rbc morphology (normal/abnorm) ABNORMAL (NORMAL)
[2019-08-20 20:15] LABS: TOTAL PROTEIN, SERUM 8.4 g/dL (6.4-8.2)
[2019-08-20] MEDS ORDERED: METOPROLOL TART50 MG PO (20:47)
[2019-08-20] MEDS ORDERED: LIPITOR80 MG PO (20:47)
[2019-08-20] MEDS ORDERED: AMBIEN10 MG PO (20:47)
[2019-08-20] MEDS ORDERED: ATIVAN2 MG PO (20:47)
[2019-08-20] MEDS ORDERED: CYANOCOBALAMIN PO (20:48)
[2019-08-20 23:38] LABS: LIPASE 1094 IU/L (73-393)
[2019-08-20 23:42] LABS: AMYLASE 203 U/L (25-115)
[2019-08-20 23:46] LABS: CHOLESTEROL/HDL RATIO 2.5
[2019-08-21] VITALS (7 sets, daily range): BP systolic 88–132; BP diastolic 57–97
[2019-08-21 06:57] LABS: AMYLASE 164 U/L (25-115); LIPASE 486 IU/L (73-393)
[2019-08-21 06:58] LABS: microscopic required? NO
[2019-08-21 07:02] LABS: BASOPHIL % 1.4 % (0-2); PLATELET COUNT 326 x10^3mcL (130-400)
[2019-08-21 08:16] LABS: CALCIUM 9.1 mg/dL (8.5-10.1); CARBON DIOXIDE 25.5 mmol/L (21-32); CHLORIDE SERUM 105 mmol/L (98-107); CREATININE SERUM 0.8 mg/dL (0.7-1.3); GFR1 > 60 mL/min; GLUCOSE SERUM 74 mg/dL (74-106); PHOSPHOROUS 5.2 mg/dL (2.5-4.9); POTASSIUM SERUM 4.1 mmol/L (3.5-5.1); SODIUM SERUM 142 mmol/L (136-145)
[2019-08-21 08:16] LABS: UA SPECIFIC GRAVITY 1.015 (1.005-1.035); urine erythrocyte NEGATIVE (NEGATIVE)
[2019-08-21 08:42] LABS: AMPHETAMINE QUAL UR NONE DETECTED (See below)
[2019-08-21 08:57] LABS: rbc morphology (normal/abnorm) ABNORMAL (NORMAL)
[2019-08-22 06:35] VITALS: BP 123/74
[2019-08-22 07:29] LABS: PLATELET COUNT 393 x10^3mcL (130-400)
[2019-08-22 07:32] LABS: CALCIUM 8.7 mg/dL (8.5-10.1); CARBON DIOXIDE 27.7 mmol/L (21-32); CHLORIDE SERUM 105 mmol/L (98-107); CREATININE SERUM 0.7 mg/dL (0.7-1.3); GFR1 > 60 mL/min; GLUCOSE SERUM 79 mg/dL (74-106); LIPASE 680 IU/L (73-393); MAGNESIUM 1.7 mg/dL (1.8-2.4); PHOSPHOROUS 3.7 mg/dL (2.5-4.9); POTASSIUM SERUM 3.5 mmol/L (3.5-5.1); SODIUM SERUM 141 mmol/L (136-145)
[2019-08-22 08:03] LABS: RED CELL DISTRIBUTION WIDTH 21.7 % (11.5-14.5)
[2019-08-22 09:20] LABS: MONOCYTE 13 % (0-7); SEGMENTED NEUTROPHILS 63 % (37-75)
[2019-08-22 09:23] LABS: PLATELET MORPHOLOGY NORMAL
[2019-08-22 09:41] VITALS: BP 133/91
[2019-08-22 09:48] LABS: rbc morphology (normal/abnorm) ABNORMAL (NORMAL)
[2019-08-22 12:25] VITALS: BP 140/92
[2019-08-22] MEDS ORDERED: APAP/HYDROCODON1 T13 PO (13:00)
[2019-08-22] MEDS ORDERED: ATI1 PO (14:50)
[2019-08-22 15:50] VITALS: BP 123/83
== END 2019-08-22 19:32 | disposition home or self-care (01) | DRG 282 ==
LOC: ED 18:43 → DU 22:09
PROVIDERS: Emergency Medicine; ADMIT Family Medicine
DX: K85.20 Alcohol induced acute pancreatitis without necrosis or infection (principal); I42.0 Dilated cardiomyopathy; D64.9 Anemia, unspecified; F10.20 Alcohol dependence, uncomplicated; I45.6 Pre-excitation syndrome; E78.5 Hyperlipidemia, unspecified; F41.8 Other specified anxiety disorders; I10 Essential (primary) hypertension; I25.2 Old myocardial infarction; Z68.25 Body mass index [BMI] 25.0-25.9, adult; F17.210 Nicotine dependence, cigarettes, uncomplicated
CPT/HCPCS: 90658; 90732; G0378; G0480; J2060; J2270; J7030; Q0092

== ENCOUNTER 2019-09-02 18:42 | Inpatient (IN) | payer MEDICAID ==
[~2019-09-02] VITALS: Ht 180.3 cm; Wt 83.0 kg
[~2019-09-02 18:42] MED LIST changes: +APAP/HYDROCODON1 T13 PO; +ATI1 PO; +CYANOCOBALAMIN PO; +LIPITOR80 MG PO; +METOPROLOL TART50 MG PO
[2019-09-02 19:06] VITALS: Ht 180.3 cm; Wt 83.0 kg
[2019-09-02 20:54] LABS: BASOPHIL % 0.3 % (0-2); PLATELET COUNT 253 x10^3mcL (130-400)
[2019-09-02 20:59] LABS: CALCIUM 9.5 mg/dL (8.5-10.1); CARBON DIOXIDE 27.5 mmol/L (21-32); CHLORIDE SERUM 102 mmol/L (98-107); CREATININE SERUM 0.8 mg/dL (0.7-1.3); GFR1 > 60 mL/min; GLUCOSE SERUM 89 mg/dL (74-106); POTASSIUM SERUM 4.2 mmol/L (3.5-5.1); SODIUM SERUM 140 mmol/L (136-145)
[2019-09-02 21:03] LABS: RED CELL DISTRIBUTION WIDTH 19.9 % (11.5-14.5)
[2019-09-02 21:04] LABS: ALBUMIN 4.6 g/dL (3.4-5.0); ALKALINE PHOSPHATASE 60 U/L (46-116); ALT/SGPT 40 U/L (16-63); AST/SGOT 21 U/L (15-37); BILIRUBIN TOTAL 0.39 mg/dL (0.20-1.00)
[2019-09-02 21:26] LABS: TOTAL PROTEIN, SERUM 8.7 g/dL (6.4-8.2)
[2019-09-02 22:00] LABS: LIPASE 9846 IU/L (73-393)
[2019-09-03 04:56] VITALS: BP 104/68
[2019-09-03 06:13] LABS: CALCIUM 8.6 mg/dL (8.5-10.1); CARBON DIOXIDE 30.2 mmol/L (21-32); CHLORIDE SERUM 106 mmol/L (98-107); CREATININE SERUM 0.8 mg/dL (0.7-1.3); GFR1 > 60 mL/min; GLUCOSE SERUM 82 mg/dL (74-106); MAGNESIUM 1.7 mg/dL (1.8-2.4); PHOSPHOROUS 4.4 mg/dL (2.5-4.9); POTASSIUM SERUM 3.9 mmol/L (3.5-5.1); SODIUM SERUM 142 mmol/L (136-145)
[2019-09-03 06:19] LABS: BASOPHIL % 0.7 % (0-2); PLATELET COUNT 210 x10^3mcL (130-400)
[2019-09-03 06:55] LABS: RED CELL DISTRIBUTION WIDTH 19.7 % (11.5-14.5)
[2019-09-03 08:05] VITALS: BP 100/65
[2019-09-03 11:59] LABS: AMPHETAMINE QUAL UR NONE DETECTED (See below)
[2019-09-03 16:24] VITALS: BP 116/55
[2019-09-03 20:18] VITALS: BP 122/77
[2019-09-04 04:56] VITALS: BP 108/61
[2019-09-04 06:28] LABS: BASOPHIL % 0.6 % (0-2); PLATELET COUNT 187 x10^3mcL (130-400)
[2019-09-04 06:33] LABS: CALCIUM 8.1 mg/dL (8.5-10.1); CARBON DIOXIDE 26.9 mmol/L (21-32); CHLORIDE SERUM 107 mmol/L (98-107); CREATININE SERUM 0.6 mg/dL (0.7-1.3); GFR1 > 60 mL/min; GLUCOSE SERUM 84 mg/dL (74-106); LIPASE 401 IU/L (73-393); MAGNESIUM 1.6 mg/dL (1.8-2.4); PHOSPHOROUS 4.3 mg/dL (2.5-4.9); POTASSIUM SERUM 3.5 mmol/L (3.5-5.1); SODIUM SERUM 143 mmol/L (136-145)
[2019-09-04 06:36] LABS: AMYLASE 164 U/L (25-115)
[2019-09-04 07:17] LABS: RED CELL DISTRIBUTION WIDTH 20.1 % (11.5-14.5)
[2019-09-04 08:47] VITALS: BP 121/80
[2019-09-04 17:47] VITALS: BP 132/93
[2019-09-04 20:35] VITALS: BP 140/95
[2019-09-05 05:06] VITALS: BP 116/75
[2019-09-05 06:40] LABS: BASOPHIL % 0.7 % (0-2); PLATELET COUNT 183 x10^3mcL (130-400)
[2019-09-05 06:56] LABS: CALCIUM 8.5 mg/dL (8.5-10.1); CARBON DIOXIDE 24.9 mmol/L (21-32); CHLORIDE SERUM 105 mmol/L (98-107); CREATININE SERUM 0.7 mg/dL (0.7-1.3); GFR1 > 60 mL/min; GLUCOSE SERUM 75 mg/dL (74-106); LIPASE 339 IU/L (73-393); MAGNESIUM 1.7 mg/dL (1.8-2.4); POTASSIUM SERUM 3.4 mmol/L (3.5-5.1); SODIUM SERUM 139 mmol/L (136-145)
[2019-09-05 07:32] VITALS: BP 136/100
[2019-09-05 12:36] VITALS: BP 117/90
[2019-09-05] MEDS ORDERED: DELTASONE20 MG PO (12:55)
[2019-09-05] MEDS ORDERED: ZITHROMAX TRI-500 MG PO (12:57)
[2019-09-05 14:07] VITALS: BP 117/90
== END 2019-09-05 15:30 | disposition home or self-care (01) | DRG 282 ==
LOC: ED 18:42 → MU 23:52
PROVIDERS: Emergency Medicine; ADMIT General Practice
DX: K85.20 Alcohol induced acute pancreatitis without necrosis or infection (principal); E83.42 Hypomagnesemia; E78.5 Hyperlipidemia, unspecified; I10 Essential (primary) hypertension; F41.8 Other specified anxiety disorders; F10.188 Alcohol abuse with other alcohol-induced disorder; F17.210 Nicotine dependence, cigarettes, uncomplicated; I25.2 Old myocardial infarction; Z68.25 Body mass index [BMI] 25.0-25.9, adult; Y90.0 Blood alcohol level of less than 20 mg/100 ml
CPT/HCPCS: G0378; G0480; J1885; J2270; J2405; J3010; J3475; J7030; Q0092

== ENCOUNTER 2019-09-17 19:32 | Emergency (ER) | payer MEDICAID ==
[~2019-09-17] VITALS: Ht 177.8 cm; Wt 79.4 kg
[~2019-09-17 19:32] MED LIST changes: +DELTASONE20 MG PO; +ZITHROMAX TRI-500 MG PO
[2019-09-17 19:38] VITALS: Ht 177.8 cm; Wt 79.4 kg
[2019-09-17 21:31] LABS: PLATELET COUNT 242 x10^3mcL (130-400)
[2019-09-17 21:39] LABS: RED CELL DISTRIBUTION WIDTH 19.6 % (11.5-14.5)
[2019-09-17 21:41] LABS: CALCIUM 8.7 mg/dL (8.5-10.1); CARBON DIOXIDE 26.4 mmol/L (21-32); CHLORIDE SERUM 98 mmol/L (98-107); CREATININE SERUM 0.8 mg/dL (0.7-1.3); GFR1 > 60 mL/min; GLUCOSE SERUM 108 mg/dL (74-106); POTASSIUM SERUM 3.6 mmol/L (3.5-5.1); SODIUM SERUM 142 mmol/L (136-145)
[2019-09-17 21:54] LABS: ALBUMIN 4.3 g/dL (3.4-5.0); ALKALINE PHOSPHATASE 79 U/L (46-116); ALT/SGPT 27 U/L (16-63); AST/SGOT 31 U/L (15-37); BILIRUBIN TOTAL 0.3 mg/dL (0.20-1.00); LIPASE 311 IU/L (73-393); MAGNESIUM 1.9 mg/dL (1.8-2.4); T4(THYROXINE) 5.9 ug/dL (4.7-13.3)
[2019-09-17 22:00] VITALS: BP 139/81
[2019-09-17 22:00] LABS: CHOLESTEROL 230 mg/dL (<200); HDL CHOLESTEROL 95 mg/dL (40-60); TOTAL PROTEIN, SERUM 8.9 g/dL (6.4-8.2)
[2019-09-17 22:02] LABS: BAND NEUTROPHIL 0 % (0-10); BASOPHIL 0 % (0-2); MONOCYTE 6 % (0-7); SEGMENTED NEUTROPHILS 53 % (37-75)
[2019-09-17 22:03] LABS: PLATELET MORPHOLOGY PLATELETS NORMAL; rbc morphology (normal/abnorm) NORMAL (NORMAL)
== END 2019-09-17 23:17 | disposition home or self-care (01) ==
LOC: ED 19:32
PROVIDERS: Emergency Medicine
DX: F10.129 Alcohol abuse with intoxication, unspecified (principal); R10.84 Generalized abdominal pain; I10 Essential (primary) hypertension; E78.00 Pure hypercholesterolemia, unspecified; F32.9 Major depressive disorder, single episode, unspecified; F17.210 Nicotine dependence, cigarettes, uncomplicated; I45.6 Pre-excitation syndrome; Z90.89 Acquired absence of other organs
CPT/HCPCS: 82962; G0480; J3411; J3475; J3490; J7030; Q0092

== ENCOUNTER 2019-09-22 21:42 | Inpatient (IN) | payer MEDICAID ==
[~2019-09-22] VITALS: Ht 180.3 cm; Wt 78.7 kg
[2019-09-22 21:50] VITALS: Ht 180.3 cm; Wt 78.7 kg
[2019-09-22 23:50] LABS: CALCIUM 8.9 mg/dL (8.5-10.1); CARBON DIOXIDE 27.7 mmol/L (21-32); CHLORIDE SERUM 92 mmol/L (98-107); CREATININE SERUM 0.8 mg/dL (0.7-1.3); GFR1 > 60 mL/min; GLUCOSE SERUM 133 mg/dL (74-106); POTASSIUM SERUM 3.1 mmol/L (3.5-5.1); SODIUM SERUM 140 mmol/L (136-145)
[2019-09-22 23:55] LABS: ALBUMIN 4.6 g/dL (3.4-5.0); ALKALINE PHOSPHATASE 85 U/L (46-116); ALT/SGPT 41 U/L (16-63); AST/SGOT 51 U/L (15-37); BILIRUBIN TOTAL 0.69 mg/dL (0.20-1.00); LIPASE 324 IU/L (73-393)
[2019-09-23 00:08] LABS: PLATELET COUNT 94 x10^3mcL (130-400); RED CELL DISTRIBUTION WIDTH 19.7 % (11.5-14.5)
[2019-09-23 00:22] LABS: MONOCYTE 5 % (0-7); SEGMENTED NEUTROPHILS 65 % (37-75); rbc morphology (normal/abnorm) ABNORMAL (NORMAL)
[2019-09-23 00:23] LABS: PLATELET MORPHOLOGY PLATELETS DECREASED
[2019-09-23 00:49] LABS: AMPHETAMINE QUAL UR NONE DETECTED (See below)
[2019-09-23 06:18] VITALS: BP 145/93
[2019-09-23 07:37] VITALS: BP 134/82
[2019-09-23 11:39] VITALS: BP 107/78
[2019-09-23 18:08] VITALS: BP 121/80
[2019-09-23 19:23] VITALS: BP 124/91
[2019-09-24 04:50] VITALS: BP 142/100
[2019-09-24 06:51] LABS: CALCIUM 8.7 mg/dL (8.5-10.1); CARBON DIOXIDE 25.4 mmol/L (21-32); CHLORIDE SERUM 98 mmol/L (98-107); CREATININE SERUM 0.6 mg/dL (0.7-1.3); GFR1 > 60 mL/min; GLUCOSE SERUM 75 mg/dL (74-106); MAGNESIUM 1.4 mg/dL (1.8-2.4); PHOSPHOROUS 2.1 mg/dL (2.5-4.9); POTASSIUM SERUM 3.5 mmol/L (3.5-5.1); SODIUM SERUM 136 mmol/L (136-145)
[2019-09-24 07:47] LABS: RED CELL DISTRIBUTION WIDTH 20.5 % (11.5-14.5)
[2019-09-24 08:52] VITALS: BP 145/106
[2019-09-24 13:05] VITALS: BP 126/92
[2019-09-24 14:13] LABS: BAND NEUTROPHIL 3 % (0-10); MONOCYTE 11 % (0-7); SEGMENTED NEUTROPHILS 55 % (37-75); rbc morphology (normal/abnorm) ABNORMAL (NORMAL)
[2019-09-24 14:14] LABS: PLATELET MORPHOLOGY PLATELETS DECREASED
[2019-09-24 14:36] LABS: PLATELET COUNT 39 x10^3mcL (130-400)
[2019-09-24 17:18] VITALS: BP 124/90
[2019-09-24 19:41] VITALS: BP 114/85
[2019-09-25 05:18] VITALS: BP 119/86
[2019-09-25 07:04] LABS: CALCIUM 9.2 mg/dL (8.5-10.1); CARBON DIOXIDE 27.1 mmol/L (21-32); CHLORIDE SERUM 98 mmol/L (98-107); CREATININE SERUM 0.8 mg/dL (0.7-1.3); GFR1 > 60 mL/min; GLUCOSE SERUM 81 mg/dL (74-106); MAGNESIUM 1.8 mg/dL (1.8-2.4); PHOSPHOROUS 1.7 mg/dL (2.5-4.9); SODIUM SERUM 137 mmol/L (136-145)
[2019-09-25 07:39] LABS: BASOPHIL % 0 % (0-2); PLATELET COUNT 52 x10^3mcL (130-400); RED CELL DISTRIBUTION WIDTH 20.4 % (11.5-14.5)
[2019-09-25 09:05] VITALS: BP 141/95
[2019-09-25 10:56] VITALS: BP 141/95
[2019-09-25 12:38] VITALS: BP 152/98
[2019-09-25 17:20] VITALS: BP 101/69
[2019-09-25 20:58] VITALS: BP 105/70
[2019-09-26 05:24] VITALS: BP 125/80
[2019-09-26 07:56] VITALS: BP 132/90
== END 2019-09-26 08:35 | disposition home or self-care (01) | DRG 775 ==
LOC: ED 21:42 → DU 09-23 05:08
PROVIDERS: Emergency Medicine; ADMIT Internal Medicine
DX: F10.239 Alcohol dependence with withdrawal, unspecified (principal); F10.229 Alcohol dependence with intoxication, unspecified; G92 Toxic encephalopathy; E87.8 Other disorders of electrolyte and fluid balance, not elsewhere classified; T51.0X1A Toxic effect of ethanol, accidental (unintentional), initial encounter; E87.6 Hypokalemia; R00.0 Tachycardia, unspecified; I45.6 Pre-excitation syndrome; Y90.8 Blood alcohol level of 240 mg/100 ml or more; Z90.49 Acquired absence of other specified parts of digestive tract; Z71.41 Alcohol abuse counseling and surveillance of alcoholic; Z81.1 Family history of alcohol abuse and dependence; Z82.49 Family history of ischemic heart disease and other diseases of the circulatory system; Z80.9 Family history of malignant neoplasm, unspecified; Z59.0 Homelessness; Y90.6 Blood alcohol level of 120-199 mg/100 ml; Y92.009 Unspecified place in unspecified non-institutional (private) residence as the place of occurrence of the external cause
CPT/HCPCS: 97116-GP; G0378; G0480; J2060; J2405; J2765; J3010; J3475; J7030; Q0162

== ENCOUNTER 2019-11-26 15:48 | Inpatient (IN) | payer MEDICAID ==
[~2019-11-26] VITALS: Ht 180.3 cm; Wt 85.7 kg
[2019-11-26 16:01] VITALS: Ht 180.3 cm; Wt 85.7 kg
--- NOTE | 2019-11-26 16:04 | NUR ---
EKG IN PROGRESS
--- NOTE | 2019-11-26 16:15 | NUR ---
PT BIB SELF C/O VENTRAL LIKE SHARP PAIN FIRM EPIGASTRIC TO PERIUMBILICAL REGION , NAUSEA, AND NONPROVOKED SHARP LIKE RADIAITING FROM MIDSTERNAL TO LEFT CHEST PAIN X1 DAY. NO VOMITING NOTED. PT HAS HISTORY OF ETOH ABUSE AND ANXIETY. PT IS AAOX4, SLURRED SPEECH NOTED, NO DISTRESS NOTED, RESP E/U, SKIN IS JAUNDICE, MOIST, WARM AND INTACT. PT GOWNED, PLACED ON FULL CM, SINUS TAHCHYCARDIA, BED IN LOWEST POSITION, SEIZURE PRECAUTIONS IN PLACE, SIDERAILX2 UP FOR SAFETY, CALL LIGHT WITHIN REACH. AWAITING MSE BY .
--- NOTE | 2019-11-26 16:22 | NUR ---
DR DAVE AT THE BEDSIDE FOR MSE TO PATIENT.
--- NOTE | 2019-11-26 16:54 | NUR ---
MEDICATED PT PER MD ORDERS, SEE EMAR, PT VERBALIZED UNDERSTANDING OF MEDICATION TEACHING. IF LFUIDS INFUSING NO INFILTRATION OR PAIN NOTED. WILL CONT TO MONITOR.
[2019-11-26 17:00] LABS: PLATELET COUNT 160 x10^3mcL (130-400)
[2019-11-26 17:03] LABS: RED CELL DISTRIBUTION WIDTH 22.9 % (11.5-14.5)
--- NOTE | 2019-11-26 17:05 | NUR ---
URINAL PLACED AT THE BEDSIDE FOR PT USE.
[2019-11-26 17:24] LABS: BAND NEUTROPHIL 0 % (0-10); BASOPHIL 0 % (0-2); CHLORIDE SERUM 104 mmol/L (98-107); CREATININE SERUM 0.8 mg/dL (0.7-1.3); GFR1 > 60 mL/min; GLUCOSE SERUM 103 mg/dL (74-106); MONOCYTE 1 % (0-7); POTASSIUM SERUM 3.6 mmol/L (3.5-5.1); SEGMENTED NEUTROPHILS 43 % (37-75); SODIUM SERUM 147 mmol/L (136-145); rbc morphology (normal/abnorm) ABNORMAL (NORMAL)
[2019-11-26 17:25] LABS: ALBUMIN 4.3 g/dL (3.4-5.0); ALKALINE PHOSPHATASE 76 U/L (46-116); ALT/SGPT 33 U/L (16-63); AST/SGOT 45 U/L (15-37); BILIRUBIN TOTAL 0.28 mg/dL (0.20-1.00); CALCIUM 8.2 mg/dL (8.5-10.1); LIPASE 362 IU/L (73-393); TOTAL PROTEIN, SERUM 8.5 g/dL (6.4-8.2)
--- NOTE | 2019-11-26 18:25 | NUR ---
PT IN POSITION OF COMFORT LAYING IN ER [facility]. PT IS AAOX4, NO DISTRESS NOTED, RESP E/U, SKIN REMAINS UNCHANGED FROM INTIAL ASSESSMENT. PT IN FULL CM, NSR AT THIS TIME NOTED. PT C/O HEADACHE, MD AWARE. NO FURTHER ORDER FOR PAIN MEDICATIONS.
--- NOTE | 2019-11-26 19:13 | NUR ---
REPRT GIVEN TO MICHI OSW RN WHO WILL ASSUME FURTHER OF THIS PATIENT.
--- NOTE | 2019-11-26 19:13 | NUR ---
REPORT RECEIVED FROM MIGUEL Varela RN. ALL QUESTIONS AND CONCERNS ADDRESSED AT THIS TIME
--- NOTE | 2019-11-26 20:45 | NUR ---
MD DAVE AWARE PT REQUESTING PAIN MEDICATION FOR CHEST PAIN AT THIS TIME. NO NEW ORDERS RECEIVED
--- NOTE | 2019-11-26 21:02 | NUR ---
PT SEEN TO BE STANDING AND WALKING WITH STEADY GAIT TO AMBULATE TO RESTROOM AND TO PHONE IN THE HALLWAY. PT SPEAKING IN CLEAR AND FULL SENTENCES. NAD AT THIS TIME
--- NOTE | 2019-11-26 22:53 | NUR ---
REPORT GIVEN TO SAMANTHA MART. ALL QUESSTIONS AND CONCERNS ADDRESSED AT THIS TIME
[2019-11-26 23:18] VITALS: BP 173/103
--- NOTE | 2019-11-26 23:24 | NUR ---
PT C/O 04/17 ABDOMINAL PAIN. PT GIVEN MORPHINE SULFATE 2MG IVP.
--- NOTE | 2019-11-26 23:31 | NUR ---
RECEIVED PT FROM ER, PT ADMIT FOR CHEST PAIN, ABD PAIN, ETOH ABUSE, PT IS A/O X4, VERBAL RESPONSIVE. TREMOR ALL OF BODY. LUNG SOUND CLEAR BILATERAL,NO COUGH, NO SOB. PT IS ON TELE 6, NSR, C/O CHEST PAIN 4/10, BOWEL SOUND PRESENT ALL 4 QUADRANTS, NO DISTENTION, NO TENDER. C/O ABD PAIN 8/10, PEDAL PULSE PRESENT BOTH FEET, NO EDEMA, IV AT RIGHT UPPER ARM, ALL ADLS ASSIST, ALL NEED MET, CALL LIGHT IN REACH, WILL CONTINUE TO MONITOR.
[2019-11-26 23:51] VITALS: BP 153/106
--- NOTE | 2019-11-27 00:38 | NUR ---
PT AGITATED. GIVEN ATIVAN 1MG IVP.
--- NOTE | 2019-11-27 01:26 | NUR ---
Received pt. from knowledge analyst nurse going to ICU, currently awake and resting in bed. Pt. has question about when morphine was due, educated pt. that it will be due around 0230 this morning. pt. verbalized understanding, will continue to monitor.
--- NOTE | 2019-11-27 02:30 | NUR ---
Pt. c/o of severe abdominal pain, will medicate with morphine as ordered.
--- NOTE | 2019-11-27 04:51 | NUR ---
Informed MD of missing diet order. Will continue to monitor pt.
[2019-11-27 05:45] VITALS: BP 143/91
--- NOTE | 2019-11-27 05:51 | NUR ---
Pt. asleep throughout most of the night, able to make needs known, c/o of abd pain medicated with morphine as ordered. Pt. requested some snacks, gave pt. crackers, sprite, and elvin crackers. otherwise, pt. stable, no c/o SOB, chest pain, or s/o distress or discomfort. Will continue to monitor pt. and endorse to next shift Rn.
[2019-11-27 07:52] LABS: PLATELET COUNT 112 x10^3mcL (130-400); RED CELL DISTRIBUTION WIDTH 23.2 % (11.5-14.5)
--- NOTE | 2019-11-27 08:08 | NUR ---
RECEIVED THIS AM VERY RESTILESS AND WITH TREMOUS, NO ACUTE DISTRESS NOTED. PT MEDICATED WITH ATIVAN IVP PER ORDER. WILL CONTINUE TO MONITOR.
[2019-11-27 08:36] LABS: CALCIUM 7.8 mg/dL (8.5-10.1); CHLORIDE SERUM 100 mmol/L (98-107); CREATININE SERUM 0.7 mg/dL (0.7-1.3); GLUCOSE SERUM 78 mg/dL (74-106); MAGNESIUM 1.5 mg/dL (1.8-2.4); POTASSIUM SERUM 3.3 mmol/L (3.5-5.1); SODIUM SERUM 140 mmol/L (136-145)
[2019-11-27 09:04] VITALS: BP 144/98
[2019-11-27 09:08] LABS: BASOPHIL 1 % (0-2); MONOCYTE 9 % (0-7); SEGMENTED NEUTROPHILS 13 % (37-75)
[2019-11-27 09:10] LABS: PLATELET MORPHOLOGY PLATELETS DECREASED; rbc morphology (normal/abnorm) ABNORMAL (NORMAL)
--- NOTE | 2019-11-27 10:44 | NUR ---
PT RESTING IN NO DISTRESS. NO C/O PAIN AT THIS TIME. CALM AND COOPERATIVE.
--- NOTE | 2019-11-27 11:26 | NUR ---
PT C/O NAUSEA AND VOMITTED APPROX 150ML OF BROWNISH EMESIS, WILL MEDICATE WITH ZOFRAN IVP
[2019-11-27 13:05] VITALS: BP 142/92
--- NOTE | 2019-11-27 16:13 | NUR ---
PT NOTED WITH TREMOUS, HR 124. MEDICATED WITH ATIVAN IVP.
[2019-11-27 17:30] VITALS: BP 129/94
--- NOTE | 2019-11-27 18:47 | NUR ---
PT REMAINS IN NO DISTRESS, RESTING AT THIS TIME. NO C/O PAIN OR DISCOMFORT. IVF INFUSING WELL AND SITE CLEAR. CALL LIGHT WITHIN REACH. WILL BE ENDORSED TO INCOMING SHIFT.
--- NOTE | 2019-11-27 19:32 | NUR ---
RECIEVED PT FROM PREVIOUS SHIFT NURSE. PT RESTING IN BED, AOX4. RR EVEN AND UNLABORED. PT ON 2L/NC. IN NO SIGN OF ACUTE DISTRESS. IV RFA 20 G PATENT AND CDI. BED IN LOWEST POSITION AND CALL LIGHT WITHIN REACH. WILL CONTINUE TO MONITOR.
[2019-11-27 20:52] VITALS: BP 133/92
--- NOTE | 2019-11-28 00:34 | NUR ---
PT RESTING IN BED. RR EVEN AND UNLABORED, ON 2L/NC. IN NO SIGNS OF ACUTE DISTRESS. BED IN LOWEST POSITION AND CALL LIGHT WITHIN REACH. WILL CONTINUE TO MONITOR.
[2019-11-28 05:59] VITALS: BP 107/57
--- NOTE | 2019-11-28 07:20 | NUR ---
RECEIVED PT FROM JOELLEN MART. PT AA/OX4. NO S/S OF ACUTE DISTRESS. NO C/O PAIN AT THIS TIME. NO SOB ON ROOM AIR. C/O MILD CONGESTION. DENIES CHEST PAIN. NO N/V. TREMORS NOTED BUE HANDS. ETOH/SEIZURE PREC IN PLACE. IV WNL TO LFA, 24GAUGE, INSERTED BY JOELLEN RN, IV LEAKING TO ILDA, IV REMOVED. CATHETER IN TACT. PRESSURE APPLIED. SITE WNL. CALM/COOPERATIVE. BED IN LOW POSITION. CALL LIGHT WITHIN REACH. WILL CONT. TO MONITOR.
[2019-11-28 07:37] LABS: CALCIUM 9.4 mg/dL (8.5-10.1); CARBON DIOXIDE 26.2 mmol/L (21-32); CHLORIDE SERUM 100 mmol/L (98-107); CREATININE SERUM 0.8 mg/dL (0.7-1.3); GFR1 > 60 mL/min; GLUCOSE SERUM 88 mg/dL (74-106); MAGNESIUM 1.6 mg/dL (1.8-2.4); PHOSPHOROUS 3.8 mg/dL (2.5-4.9); POTASSIUM SERUM 3.9 mmol/L (3.5-5.1); SODIUM SERUM 138 mmol/L (136-145)
[2019-11-28 07:45] VITALS: BP 123/86
[2019-11-28 08:01] LABS: RED CELL DISTRIBUTION WIDTH 22.3 % (11.5-14.5)
[2019-11-28 08:02] LABS: PLATELET COUNT 95 x10^3mcL (130-400)
[2019-11-28 08:55] LABS: microscopic required? NO
[2019-11-28 09:07] LABS: urine erythrocyte NEGATIVE (NEGATIVE)
[2019-11-28 09:19] LABS: AMPHETAMINE QUAL UR NONE DETECTED (See below)
--- NOTE | 2019-11-28 10:52 | NUR ---
PT FOUND RESTING IN BED WITH BOTH EYES CLOSED. NO S/S OF ACUTE DISTRESS. NO SOB ON ROOM AIR. NO C/O PAIN. CALM AT THIS TIME. IV WNL TO LFA, IVF FLOWING. BED IN LOW POSITION. CALL LIGHT WITHIN REACH. WILL CONT. TO MONITOR.
[2019-11-28 11:05] LABS: BAND NEUTROPHIL 0 % (0-10); BASOPHIL 2 % (0-2); MONOCYTE 4 % (0-7); SEGMENTED NEUTROPHILS 84 % (37-75)
[2019-11-28 11:06] LABS: rbc morphology (normal/abnorm) ABNORMAL (NORMAL)
[2019-11-28 11:07] LABS: PLATELET MORPHOLOGY PLATELETS DECREASED
[2019-11-28 11:50] VITALS: BP 106/71
--- NOTE | 2019-11-28 15:13 | NUR ---
PT C/O MIDEPIGASTRIC ABD. PAIN. CONTINOUS. RATES 5/10. GIVEN PO TYLENOL. SEE MAR. NO N/V/D. NO SOB ON ROOM AIR. NO CHEST PAIN. AA/OX4. LAYING IN BED. BED IN LOW POSITION. CALL LIGHT WITHIN REACH. WILL CONT. TO MONITOR.
[2019-11-28 15:26] VITALS: BP 106/65
--- NOTE | 2019-11-28 18:15 | NUR ---
PT LAYING IN BED WATCHING TELEVISION. TOLERATING CARDIAC DIET WELL. NO N/V/D. REQUESTED SNACK, GIVEN PUDDING PER PT REQUEST. NO SOB ON ROOM AIR. NO C/O PAIN. CALM/COOPERATIVE AT THIS TIME. NO N/V. NO ABD. PAIN. IV WNL, IVF FLOWING. BED IN LOW POSITION. CALL LIGHT WITHIN REACH. WILL ENDORSE TO ONCOMING SHIFT.
--- NOTE | 2019-11-28 19:10 | NUR ---
RECEIVED PT FROM PREVIOUS SHIFT NURSE. PT AOX4, DENIES SAMPSON/DIZZINESS AT THIS TIME. PT ON TELE #6, READING SR, HR 76. DENIES CP/PRESSURE. DENIES SOB/DIFFICULTY BREATHING. IV TO LFA, INTACT AND PATENT. BED IN LOWEST POSITION. CALL LIGHT WITHIN REACH. WILL CONTINUE TO MONITOR.
[2019-11-28 19:44] VITALS: BP 122/82
--- NOTE | 2019-11-29 01:40 | NUR ---
PT RESTING IN BED. RR EVEN AND UNLABORED. IN NO ACUTE DISTRESS. CALL LIGHT WITHIN REACH. BED IN LOWEST POSITION. WILL CONTINUE TO MONITOR.
[2019-11-29 04:43] VITALS: BP 92/62
[2019-11-29 07:06] LABS: CALCIUM 9.2 mg/dL (8.5-10.1); CARBON DIOXIDE 25.9 mmol/L (21-32); CHLORIDE SERUM 103 mmol/L (98-107); CREATININE SERUM 0.8 mg/dL (0.7-1.3); GFR1 > 60 mL/min; GLUCOSE SERUM 85 mg/dL (74-106); SODIUM SERUM 139 mmol/L (136-145)
--- NOTE | 2019-11-29 07:10 | NUR ---
RECIEVED REPORT FROM [facility] NURSE. PATIENT CURRENTLY AWAKE ALERT AND ORIENTED. PATIENT REQUESTING ATIVAN. PATIENT CURRENTLY ON WINDING MACHINE OPERATOR 6. NO REPORT OF PAIN AT THIS TIME. D5 1/2 NS INFUSING TO LEFT FOREARM 24 GUAGE. CURRENT ALCOHOL LEVEL < 0.003g. WILL CONTINUE TO MONITOR PATIENT. SAFETY PRECAUTIONS IN PLACE. FALL RISK PROTOCOLS IN [place]. CALL LIGHT WITHIN REACH.
[2019-11-29 07:59] VITALS: BP 111/68
[2019-11-29 08:11] LABS: PLATELET COUNT 86 x10^3mcL (130-400); RED CELL DISTRIBUTION WIDTH 21.9 % (11.5-14.5)
[2019-11-29 08:55] LABS: BAND NEUTROPHIL 0 % (0-10); BASOPHIL 0 % (0-2); MONOCYTE 4 % (0-7); SEGMENTED NEUTROPHILS 59 % (37-75)
[2019-11-29 08:56] LABS: PLATELET MORPHOLOGY PLATELETS DECREASED
[2019-11-29 08:57] LABS: rbc morphology (normal/abnorm) ABNORMAL (NORMAL)
[2019-11-29 11:50] VITALS: BP 103/68
[2019-11-29 13:20] VITALS: BP 116/68
--- NOTE | 2019-11-29 16:04 | NUR ---
DISCHARGE INSTRUCTIONS GIVEN TO PATIENT. NO NEW PRESCRIPTIONS AT THIS TIME. EDUCATION PROVIDED REGARDING ALCOHOL ABSTINENCE. PATIENT VERBALIZED UNDERSTANDING OF DISCHARGE EDUCATION. NO QUESTIONS OR CONCERNS AT THIS TIME. PATIENT INSTRUCTED TO FOLLOW UP WITH PRIMARY CARE PROVIDER IN TWO TO THREE DAYS. IV CATH REMOVED INTACT. TELEMETRY REMOVED AND RETURNED TO TELE STATION. PATIENT ACCOMPANIED TO THE LOBBY BY GRACE. PATIENT'S FATHER HERE TO PICK PATIENT UP.
== END 2019-11-29 15:52 | disposition home or self-care (01) | DRG 243 ==
LOC: ED 15:48 → DU 22:20
PROVIDERS: Emergency Medicine; Student in an Organized Health Care Education/Training Program; ADMIT Internal Medicine
DX: K20.9 Esophagitis, unspecified (principal); E87.0 Hyperosmolality and hypernatremia; I42.0 Dilated cardiomyopathy; F10.239 Alcohol dependence with withdrawal, unspecified; F10.229 Alcohol dependence with intoxication, unspecified; K29.20 Alcoholic gastritis without bleeding; M94.0 Chondrocostal junction syndrome [Tietze]; I45.6 Pre-excitation syndrome; G40.909 Epilepsy, unspecified, not intractable, without status epilepticus; D53.9 Nutritional anemia, unspecified; I10 Essential (primary) hypertension; F41.8 Other specified anxiety disorders; I25.2 Old myocardial infarction; Y90.0 Blood alcohol level of less than 20 mg/100 ml; F17.210 Nicotine dependence, cigarettes, uncomplicated; Z68.25 Body mass index [BMI] 25.0-25.9, adult
CPT/HCPCS: C9113; G0378; G0480; J2060; J2270; J2405; J3475; J3480; J3490; J7030; Q0092

== ENCOUNTER 2019-12-14 19:13 | Emergency (ER) | payer SELFPAY ==
[~2019-12-14] VITALS: Ht 180.3 cm; Wt 81.6 kg
[2019-12-14 19:14] VITALS: Ht 180.3 cm; Wt 81.6 kg
[2019-12-14 20:55] LABS: PLATELET COUNT 173 x10^3mcL (130-400)
[2019-12-14 20:59] LABS: RED CELL DISTRIBUTION WIDTH 22.6 % (11.5-14.5)
[2019-12-14 21:06] LABS: CALCIUM 8.8 mg/dL (8.5-10.1); CARBON DIOXIDE 31.4 mmol/L (21-32); CHLORIDE SERUM 96 mmol/L (98-107); CREATININE SERUM 0.8 mg/dL (0.7-1.3); GFR1 > 60 mL/min; GLUCOSE SERUM 139 mg/dL (74-106); POTASSIUM SERUM 3.2 mmol/L (3.5-5.1); SODIUM SERUM 142 mmol/L (136-145)
[2019-12-14 21:10] LABS: ALBUMIN 3.9 g/dL (3.4-5.0); ALKALINE PHOSPHATASE 111 U/L (46-116); ALT/SGPT 26 U/L (16-63); AST/SGOT 29 U/L (15-37); BILIRUBIN TOTAL 0.3 mg/dL (0.20-1.00); LIPASE 262 IU/L (73-393)
[2019-12-14 21:11] LABS: TOTAL PROTEIN, SERUM 9.3 g/dL (6.4-8.2)
[2019-12-14 21:18] LABS: BAND NEUTROPHIL 2 % (0-10); BASOPHIL 0 % (0-2); MONOCYTE 5 % (0-7); SEGMENTED NEUTROPHILS 81 % (37-75); rbc morphology (normal/abnorm) ABNORMAL (NORMAL)
[2019-12-14 21:19] LABS: PLATELET MORPHOLOGY PLATELETS NORMAL
[2019-12-14 22:31] VITALS: BP 144/104
== END 2019-12-14 22:31 | disposition home or self-care (01) ==
LOC: ED 19:13
PROVIDERS: Emergency Medicine
DX: R10.9 Unspecified abdominal pain (principal); I45.6 Pre-excitation syndrome; I10 Essential (primary) hypertension; Z90.89 Acquired absence of other organs; Z98.890 Other specified postprocedural states
CPT/HCPCS: 36415; 83880; J1885; J2270; Q0162